=== PATIENT | female | born 1995 | race Caucasian/White ===

== ENCOUNTER 2020-07-25 16:46 | Outpatient (REF) | payer MEDICAID, SELFPAY | END 2020-07-25 16:47 | disposition home or self-care (01) | LOC: HO.LAB 16:46 | PROVIDERS: Visit Provider Internal Medicine | DX: Z20.822 Contact with and (suspected) exposure to COVID-19 (principal) | CPT/HCPCS: 36415; C9803; U0003; U0005 ==

== ENCOUNTER 2020-07-26 18:09 | Emergency (ER) | payer MEDICAID, SELFPAY | END 2020-07-26 20:50 | disposition left against medical advice (07) | PROVIDERS: Emergency Provider Internal Medicine; PCP Internal Medicine Geriatric Medicine | DX: R06.02 Shortness of breath (principal); R07.9 Chest pain, unspecified ==

== ENCOUNTER 2020-12-08 01:52 | Emergency (ER) | payer MEDICAID, SELFPAY ==
[2020-12-08 02:00] VITALS: BP 133/77; PULSE 53; RESP 16; TEMP 36.4; O2SAT 100; BMI 23.9
--- NOTE | 2020-12-08 02:32 | ED_ITS ---
HPI - Overdose General Chief Complaint: Overdose Stated Complaint: Overdose Time Seen by Provider: 12/08/20 02:32 Source: EMS and other Mode of arrival: EMS History of Present Illness HPI Narrative: 25-year-old female brought in by EMS after she states using 2 mg of Klonopin tonight and was given 4 mg of nasal Narcan by boyfriend prior to the arrival of police and EMS. As per the boyfriend who is at bedside he states that he had come over to the patient's house and knocked on the door, but there was no answer and so he climbed through the window and found her on the floor. Patient denies heroin use and only admits to the Klonopin. She denies any suicidal or homicidal ideation. Related Data Allergies Allergy/AdvReac Type Severity Reaction Status Date / Time No Known Allergies Allergy Unverified 03/08/20 18:13 [No Known Allergies*] Review of Systems Review of Systems: Pertinent positives and negatives as stated in HPI 10 point review of systems is otherwise negative. PMFSH Past Medical History Source: nursing notes reviewed Medical History No known health problems Social History Social History Advance Directives: No Advance Directives Information Provided: No Patient : No Physical Exam Vital Signs: Vital Signs: Last Vital Signs Temp 97.6 F 12/08/20 02:00 Pulse 84 12/08/20 05:18 Resp 15 12/08/20 05:18 BP 97/52 L 12/08/20 05:18 Pulse Ox 99 12/08/20 05:18 Body Mass Index 23.9 VITAL SIGNS: Reviewed. GENERAL: Well developed, well nourished, in no acute distress. HEAD: Normocephalic/atraumatic EYES: PERRLA, EOMI OROPHARYNX: no oral lesions noted, posterior pharynx clear NECK: Supple, no adenopathy LUNGS: Normal breath sounds. No adventitious sounds or accessory muscle use. SpO2<100> CARDIOVASCULAR: Regular rate and rhythm without noted murmurs ABDOMEN: Soft, non-tender, non-distended with bowel sounds. Course Course Course Narrative: 25-year-old female with history and clinical presentation consistent with substance overdose possible Klonopin or heroin. Patient will be observed until she is more awake and re-evaluated for suicidal or homicidal ideation at that time and if not present she will be discharged home in stable condition with home Narcan. On re-evaluation patient denies any suicidal or homicidal ideation. She has tolerated a p.o. challenge and will be discharged in stable condition to home. Discharge Plan Discharge Clinical Impression: Drug overdose Patient Disposition: Home, Self-Care Instructions: Adult Overdose (ED) Additional Instructions: Return for any acute worsening of symptoms. Referrals: Physician,Unknown [Primary Care Provider] - 2 days Print Language: Romanian
[2020-12-08 05:18] VITALS: BP 97/52; PULSE 84; RESP 15; O2SAT 99
[2020-12-08] MEDS: Naloxone HCl Nasal TAKE HOME 4 MG SPRAY NOSTRILALT (05:19)
== END 2020-12-08 06:35 | disposition home or self-care (01) ==
PROVIDERS: Emergency Provider Student in an Organized Health Care Education/Training Program
DX: T50.901A Poisoning by unspecified drugs, medicaments and biological substances, accidental (unintentional), initial encounter (principal); Y92.9 Unspecified place or not applicable
CPT/HCPCS: 99284

== ENCOUNTER 2021-01-15 07:27 | Inpatient (IN) | payer MEDICAID, SELFPAY ==
[2021-01-15] VITALS (8 sets, daily range): BP systolic 105–129; BP diastolic 60–86; PULSE 100–140; RESP 12–20; TEMP 35.7–38.1; O2SAT 96–100; BMI 20.7
--- NOTE | 2021-01-15 | ECG_ITS ---
Test Reason : ELEVATED TROPONIN Blood Pressure : / mmHG Vent. Rate : 098 BPM Atrial Rate : 098 BPM P-R Int : 154 ms QRS Dur : 074 ms QT Int : 366 ms P-R-T Axes : 072 061 050 degrees QTc Int : 467 ms Normal sinus rhythm Nonspecific T wave abnormality Prolonged QT Abnormal ECG No significant changes when compared with the previous EKG of 15 january 2021 Referred By: Mckinley Hinojosa Electronically Signed By:MIKE BAUTISTA
--- NOTE | ~2021-01-15 | XR_ITS ---
EXAMINATION: XR ANKLE, LEFT CLINICAL INFORMATION: Swelling and ankle pain COMPARISON: None TECHNIQUE: AP, lateral, and mortise views of the left ankle. FINDINGS: The bones and soft tissues are normal. No acute fracture. Alignment is anatomic. Joint spaces are maintained. No joint effusion. XR/XR ankle LT 2V IMPRESSION: No acute injury seen.
--- NOTE | ~2021-01-15 | XR_ITS ---
EXAMINATION: XR CHEST CLINICAL INFORMATION: Aspiration COMPARISON: January 15, 2021 TECHNIQUE: 2 views of the chest were obtained. FINDINGS: Patient has developed bibasilar disease with what appear to be small pleural effusions. No pneumothorax identified. Heart normal size. No evidence of pulmonary edema. XR/XR chest 2V IMPRESSION: Interval development of bilateral lower lobe disease with question small effusions.
--- NOTE | ~2021-01-15 | CT_ITS ---
EXAMINATION: CT HEAD WITHOUT CONTRAST CLINICAL INFORMATION: Altered mental status. Age 30. Assess for intracranial abnormality. COMPARISON: None TECHNIQUE: Contiguous axial imaging was performed from the skull base to vertex without intravenous administration of contrast. Additional 2-D coronal and sagittal reformatted images are generated on the CT workstation and uploaded to PACS. This CT examination was performed using dose optimization techniques as appropriate, variously including the following: *Automated exposure control *Adjustment of mA and/or kV according to patient size (this includes techniques or standardized protocols for targeted exams where dose is matched to indication/reason for exam; i.e. extremities or head) *Use of iterative reconstruction technique DLP: 661 mGy-cm FINDINGS: There is no intracranial hemorrhage, hematoma, or extra-axial fluid collection. The ventricles are normal in size. There is no hydrocephalus, edema, or mass effect. The benítez-white matter differentiation appears symmetric. There is no visible acute territorial infarct or mass lesion. The calvarium appears intact. There is no pneumocephalus or orbital emphysema. The visualized sinuses and middle ears and mastoid air cells show no significant mucosal thickening. There are no air-fluid levels. CT/CT head/brain wo IV con IMPRESSION: Normal study.
--- NOTE | ~2021-01-15 | XR_ITS ---
EXAMINATION: XR CHEST CLINICAL INFORMATION: Altered mental status. Rule out pneumonia. COMPARISON: None TECHNIQUE: Frontal view of the chest was obtained. FINDINGS: No significant abnormality is noted involving the heart, lungs, mediastinum, bony thorax or soft tissues. XR/XR chest 1V IMPRESSION: Unremarkable examination.
--- NOTE | 2021-01-15 08:00 | ECG_ITS ---
Test Reason : OVERDOSE Blood Pressure : / mmHG Vent. Rate : 141 BPM Atrial Rate : 141 BPM P-R Int : 130 ms QRS Dur : 076 ms QT Int : 286 ms P-R-T Axes : 078 078 068 degrees QTc Int : 438 ms Sinus tachycardia Nonspecific ST abnormality Abnormal ECG No previous ECGs available Referred By: Oli Hussein Electronically Signed By:MIKE BAUTISTA
[2021-01-15] MEDS: Naloxone HCl 2 MG/2 ML SYRINGE 4 MG IVPUSH (08:07)
[2021-01-15] MEDS: 0.9 % Sodium Chloride 1,000 ML 999 ML IV (08:08)
--- NOTE | 2021-01-15 08:13 | PC.NURSE ---
PT UNRESPONSIVE, NOT ANSWERING ANY QUESTION, MINI RESPONSE TO PAINFUL STIMULI, RED MARKINGS ON THE FRONT OF THE PT;S NECK SAME RD MARKINGS ON THE CLAVICLE AREA AND THE RIGHT SHOULDER, BRUISING ON THE RIGHT BREAST AREA AND SWELLING AND REDNESS UNDER THE RED EYE, SOME DISCOLORATION TO THE BILATERAL KNEES. RECTAL TEMP 96.3 PT SHIVERING, SINUS TACH 130-140, SATING AT 100% ON ROOM AIR, CAP 33, RESPIRATIONS SHALLOW ANYWHERE FROM 10-20, BP STABLE AT 122/80
--- NOTE | 2021-01-15 08:22 | PC.NURSE ---
MINIM AFFECT THE 4MG OF NARCAN PT SHIVERING AND MOVING AROUND AND FEW VINICIO/YAWNS BUT STILL NOT ANSWERING ANY QUESTIONS OR OPENING HER EYES, VS CONTINUOS ON BEING STABLE AT THIS TIME
[2021-01-15 08:38] LABS: Basophils Absolute Auto 0.1 X10*3/uL (0.0-0.2); Basophils Percent Auto 0.2 % (0-2); Hematocrit 41.6 % (37-47); Hemoglobin 13.4 g/dl (12.0-16.0); Imm Gran Abs Auto 0.24 X10*3/uL (0.00-0.03); Imm Gran Pct Auto 0.8 % (0.0-0.4); Lymphocytes Absolute Auto 1.1 X10*3/uL (1.2-4.9); Lymphocytes Percent Auto 3.6 % (20-40); MANUAL DIFF FLAG SCAN; Mean Corpuscular HGB Conc 32.2 g/dl (31.0-35.0); Mean Corpuscular Hemoglobin 29.9 pg (27.0-33.0); Mean Corpuscular Volume 92.9 fL (80-98); Mean Platelet Volume 10.2 fL (9.4-12.3); Monocytes Absolute Auto 2.5 X10*3/uL (0.1-1.2); Monocytes Percent Auto 8.2 % (2-11); Neutrophils Absolute Auto 26.1 X10*3/uL (2.0-8.3); Neutrophils Percent Auto 87.2 % (45-73); Platelet Count 247 X10*3/uL (160-400); Red Blood Count 4.48 X10*6/uL (4.20-5.50); Red Cell Distribution Width 13.5 % (11.0-16.0); SCAN SMEAR FLAG 1
--- NOTE | 2021-01-15 08:40 | PC.NURSE ---
security at bedside for belongings
[2021-01-15 08:58] LABS: Lactic Acid 7.3 mmol/L (0.5-2.0)
[2021-01-15 08:59] LABS: COVID-19 Test Negative (Negative)
--- NOTE | 2021-01-15 09:05 | ED_ITS ---
HPI - General Adult General Chief complaint: Overdose Stated complaint: UNRESPONSIVE,?OD,3MG NARCAN W/NO EFFECT Time Seen by Provider: 01/15/21 07:49 Source: EMS Mode of arrival: EMS Limitations: altered mental status History of Present Illness HPI narrative: 30-year-old female who presents emergency department for evaluation of altered mental status, the patient is not able to give a history, information comes from the ED nurse who took report from the paramedics. The patient was found unresponsive at home on the floor. She was half dressed. The family administered 2 mg of intranasal Narcan with no effect. Paramedics gave Narcan 1 mg IV with no effect. The ED nurse found bags of heroin in the patient's pockets with a straw suggested the patient uses intranasal heroin. Nursing staff did not notice any IV track gaming on the patient's body. In the emergency department, the patient is altered, minimally withdrawing from painful stimuli with minimal spontaneous movement. She was given Narcan 4 g IV with some improved response, she had increased spontaneous movement but still has an altered mental status. Related Data Allergies Allergy/AdvReac Type Severity Reaction Status Date / Time No Known Allergies Allergy Verified 01/15/21 07:59 Review of Systems Review of Systems: Yes Unobtainable due to mental status [facility] Past Medical History [facility] Narrative: Past medical history: Unobtainable. Past surgical history: Unobtainable. Social history: Unobtainable Social History Social History Patient Tobacco Use Status: Current everyday Tobacco user Use of substances other than those prescribed or required for medical reasons: Yes Substance Use Type: Heroin Physical Exam Vital Signs: Vital Signs: Last Vital Signs Temp 100.6 F H 01/15/21 11:51 Pulse 115 H 01/15/21 11:51 Resp 18 01/15/21 11:51 BP 129/80 01/15/21 11:51 Pulse Ox 98 01/15/21 11:51 Body Mass Index 20.7 Const: Other: Very thin female patient, altered mental status, minimally responding to painful stimuli, minimal spontaneous movement HENMT: Head: Yes normal to inspection, Yes normocephalic and Yes atraumatic Ears: external ears normal General nose exam: Normal external nose present Face and sinus: Yes normal facial exam Mouth: Normal oral and palatal mucosa present Throat: Yes posterior oropharynx normal Eyes: Periorbital: periorbital findings normal Eyelids: Yes eyelids normal Conjunctivae: conjunctivae normal Sclerae: sclerae normal Corneas: corneas normal Pupils: Pupil size comments on the right 4 and on the left 4 Direct Ophthalmoscopy: normal light reflex Neck: Neck: Yes no lymphadenopathy, Yes trachea midline and Yes supple Chest: Chest palpation & inspection: normal inspection of the chest and normal palpation of entire chest wall Resp: Effort & Inspection: normal respiratory effort Auscultation: clear to auscultation bilaterally Cardio: Rate: tachycardic Rhythm: regular rhythm Heart sounds: S1 normal heart sound present, S2 normal heart sound present and no murmurs GI: Inspection: Yes normal to inspection Palpation (GI): Soft to palpation, nontender, no guarding, not rigid and No hepatosplenomegaly present Skin: Lesions: no lesions Rashes: no rashes Wounds: no wounds Neuro: Other: Altered mental status, not responding to verbal stimuli, minimally responsive to painful stimuli, does have spontaneous movement her age increased after receiving IV Narcan but this did not change in mental status Extrem: General: Yes normal to inspection Course Course Course Narrative: 30-year-old female who presents emergency department for evaluation of altered mental status, she was found on the floor and her family administered intranasal Narcan with no effect. She had 1 mg of IV Narcan with no effect. Here in the emergency department she was given 4 mg of IV Narcan with increased spontaneous movement and yawning but no change in her mental status. I ordered a laboratory evaluation on this patient to include CBC, CMP, lactic acid, blood cultures, CK, urinalysis. Chest x-ray, CT scan of the brain and EKG will also be obtained. She was ordered to get a 30 milliliters/kilogram IV bolus. 0928: Patient's laboratory evaluation [place] [address], patient has a low bicarb of 18 with an elevated creatinine of 1.51. Lactic acid was markedly elevated at 7.3. High sensitivity troponin was elevated at 309.1. I did re-evaluate the patient, with a sternal rub she was able to tell me her name and she did request betty aj. I am still waiting for the CT scan of the patient's head. At this time, I suspect the patient had a significant opiate overdose causing her to have an aspiration pneumonia causing hypoxia possibly hypotension leading to type 2 myocardial infarction. Patient will be treated for possible aspiration pneumonia and MRSA with ceftriaxone 1 g IV and vancomycin 1 g IV. I will give the patient another high dose bolus of Narcan 4 mg IV and if this has an effect, she will be started on Narcan drip. 1124: I did discuss the patient's presentation with the covering hemodialysis lab technician, Dr. Rees who felt that the patient's elevated troponin was most likely secondary to the patient's hypoxia and that the patient can be managed at this facility. The patient's repeat 3 hour high sensitivity troponin is pending. Patient's repeat lactic acid improved significantly and is 1.9. I will discuss the patient's presentation with the covering hospitalist. 1137: I did discuss patient's presentation with the covering hospitalist, Dr. Wick and the patient will be admitted to the [facility] for further treatment. The patient's repeat high sensitive troponin did increase to 693.9. Medical Decision Making Lab Data Result diagrams: 01/15/21 08:31 01/15/21 08:31 Labs: Lab Results 01/15/21 01/15/21 01/15/21 Range/Units 08:31 08:31 08:31 WBC 30.0 H* (4.8-10.8) X10*3/uL RBC 4.48 (4.20-5.50) X10*6/uL Hgb 13.4 (12.0-16.0) g/dl Hct 41.6 (37-47) % MCV 92.9 (80-98) fL MCH 29.9 (27.0-33.0) pg MCHC 32.2 (31.0-35.0) g/dl RDW 13.5 (11.0-16.0) % Plt Count 247 (160-400) X10*3/uL MPV 10.2 (9.4-12.3) fL Immature Gran % (Auto) 0.8 H (0.0-0.4) % Neut % (Auto) 87.2 H (45-73) % Lymph % (Auto) 3.6 L (20-40) % [place] % (Auto) 8.2 (2-11) % Eos % (Auto) 0.0 (0-4) % Baso % (Auto) 0.2 (0-2) % Lymph # (Auto) 1.1 L (1.2-4.9) X10*3/uL [place] # (Auto) 2.5 H (0.1-1.2) X10*3/uL Eos # (Auto) 0.0 (0.0-0.4) X10*3/uL Baso # (Auto) 0.1 (0.0-0.2) X10*3/uL Abs Immat Gran (auto) 0.24 H (0.00-0.03) X10*3/uL Absolute Neuts (auto) 26.1 H (2.0-8.3) X10*3/uL Absolute Nucleated RBC 0.000 (0.0-0.012) X10*3/uL Nucleated RBC % (auto) 0.0 (0.0-0.2) /100WBC Smear Tech's Comments VERIFIED Sodium 144 (135-145) mmol/L Potassium 3.4 (3.3-5.1) mmol/L Chloride 111 H (96-108) mmol/L Carbon Dioxide 18 L (22-29) mmol/L Anion Gap 18 (12-20) BUN 9 (9-16) mg/dL Creatinine 1.51 H (0.5-1.4) mg/dL Estim Creat Clear Calc 42.7 Estimated GFR 40 Random Glucose 89 (60-115) mg/dL Lactic Acid (0.5-2.0) mmol/L Lactic Acid Fup @ 2Hr (0.5-2.0) mmol/L Calcium 8.4 (8.4-10.2) mg/dL Total Bilirubin 0.5 (0.0-1.0) mg/dL AST 32 H (5-31) U/L ALT 13 (0-31) U/L Alkaline Phosphatase 60 (39-117) U/L Total Creatine Kinase 255 H (26-140) U/L Troponin I High Sens (<3.5-17.0) ng/L B-Natriuretic Peptide (<100) pg/mL Total Protein 7.1 (6.5-8.0) g/dL Albumin 4.4 (3.5-5.0) g/dL Lipase 22 (8-78) U/L TSH 0.68 (0.32-4.0) uIU/mL Beta HCG, Quant < 2 mIU/mL Salicylates < 5.0 L (15-30) mg/dL Acetaminophen < 1 (<30) mcg/mL Ethyl Alcohol mg/dL COVID-19 ([facility]) Negative (Negative) COVID-19 Clin Com See Note 01/15/21 01/15/21 01/15/21 Range/Units 08:31 08:31 08:31 WBC (4.8-10.8) X10*3/uL RBC (4.20-5.50) X10*6/uL Hgb (12.0-16.0) g/dl Hct (37-47) % MCV (80-98) fL MCH (27.0-33.0) pg MCHC (31.0-35.0) g/dl RDW (11.0-16.0) % Plt Count (160-400) X10*3/uL MPV (9.4-12.3) fL Immature Gran % (Auto) (0.0-0.4) % Neut % (Auto) (45-73) % Lymph % (Auto) (20-40) % [place] % (Auto) (2-11) % Eos % (Auto) (0-4) % Baso % (Auto) (0-2) % Lymph # (Auto) (1.2-4.9) X10*3/uL [place] # (Auto) (0.1-1.2) X10*3/uL Eos # (Auto) (0.0-0.4) X10*3/uL Baso # (Auto) (0.0-0.2) X10*3/uL Abs Immat Gran (auto) (0.00-0.03) X10*3/uL Absolute Neuts (auto) (2.0-8.3) X10*3/uL Absolute Nucleated RBC (0.0-0.012) X10*3/uL Nucleated RBC % (auto) (0.0-0.2) /100WBC Smear Tech's Comments Sodium (135-145) mmol/L Potassium (3.3-5.1) mmol/L Chloride (96-108) mmol/L Carbon Dioxide (22-29) mmol/L Anion Gap (12-20) BUN (9-16) mg/dL Creatinine (0.5-1.4) mg/dL Estim Creat Clear Calc Estimated GFR Random Glucose (60-115) mg/dL Lactic Acid 7.3 H* (0.5-2.0) mmol/L Lactic Acid Fup @ 2Hr (0.5-2.0) mmol/L Calcium (8.4-10.2) mg/dL Total Bilirubin (0.0-1.0) mg/dL AST (5-31) U/L ALT (0-31) U/L Alkaline Phosphatase (39-117) U/L Total Creatine Kinase (26-140) U/L Troponin I High Sens 309.1 H* (<3.5-17.0) ng/L B-Natriuretic Peptide 24 (<100) pg/mL Total Protein (6.5-8.0) g/dL Albumin (3.5-5.0) g/dL Lipase (8-78) U/L TSH (0.32-4.0) uIU/mL Beta HCG, Quant mIU/mL Salicylates (15-30) mg/dL Acetaminophen (<30) mcg/mL Ethyl Alcohol < 10 mg/dL COVID-19 ([facility]) (Negative) COVID-19 Clin Com 01/15/21 01/15/21 Range/Units 10:43 10:43 WBC (4.8-10.8) X10*3/uL RBC (4.20-5.50) X10*6/uL Hgb (12.0-16.0) g/dl Hct (37-47) % MCV (80-98) fL MCH (27.0-33.0) pg MCHC (31.0-35.0) g/dl RDW (11.0-16.0) % Plt Count (160-400) X10*3/uL MPV (9.4-12.3) fL Immature Gran % (Auto) (0.0-0.4) % Neut % (Auto) (45-73) % Lymph % (Auto) (20-40) % [place] % (Auto) (2-11) % Eos % (Auto) (0-4) % Baso % (Auto) (0-2) % Lymph # (Auto) (1.2-4.9) X10*3/uL [place] # (Auto) (0.1-1.2) X10*3/uL Eos # (Auto) (0.0-0.4) X10*3/uL Baso # (Auto) (0.0-0.2) X10*3/uL Abs Immat Gran (auto) (0.00-0.03) X10*3/uL Absolute Neuts (auto) (2.0-8.3) X10*3/uL Absolute Nucleated RBC (0.0-0.012) X10*3/uL Nucleated RBC % (auto) (0.0-0.2) /100WBC Smear Tech's Comments Sodium (135-145) mmol/L Potassium (3.3-5.1) mmol/L Chloride (96-108) mmol/L Carbon Dioxide (22-29) mmol/L Anion Gap (12-20) BUN (9-16) mg/dL Creatinine (0.5-1.4) mg/dL Estim Creat Clear Calc Estimated GFR Random Glucose (60-115) mg/dL Lactic Acid (0.5-2.0) mmol/L Lactic Acid Fup @ 2Hr 1.9 (0.5-2.0) mmol/L Calcium (8.4-10.2) mg/dL Total Bilirubin (0.0-1.0) mg/dL AST (5-31) U/L ALT (0-31) U/L Alkaline Phosphatase (39-117) U/L Total Creatine Kinase (26-140) U/L Troponin I High Sens 693.9 H* D (<3.5-17.0) ng/L B-Natriuretic Peptide (<100) pg/mL Total Protein (6.5-8.0) g/dL Albumin (3.5-5.0) g/dL Lipase (8-78) U/L TSH (0.32-4.0) uIU/mL Beta HCG, Quant mIU/mL Salicylates (15-30) mg/dL Acetaminophen (<30) mcg/mL Ethyl Alcohol mg/dL COVID-19 ([facility]) (Negative) COVID-19 Clin Com ECG Data Interpretation: 0817: Sinus tachycardia with a rate of 141, normal UT interval, QRS duration and QTC interval, n ST segment elevation in V2 only, no ST segment depression, nonspecific T-wave abnormalities, no old EKG for comparison. 1148: Sinus tachycardia with rate of 118, normal UT, QRS duration, prolonged QTC of 484 milliseconds. No PACs or PACs, ST segment elevation in V2 only, no significant ST segment depression. No significant change compared to the 1st EKG. Critical Care Time Critical Care Time Critical Care Time: Yes Total Critical Care Time: 45 Attestation: Critical Care: The patient was critically ill with a high probability of imminent or life threatening deterioration. I spent greater than 30 minutes of discontinuous time evaluating the patient,delivering critical care at the bedside, discussing and evaluating pertinent data with consultants. Critical care time does not include time spent performing separately billable procedures or teaching. Total time spent performing critical care was 45 minutes. Discharge Plan Discharge Clinical Impression: Opiate overdose Qualifiers: Encounter type: initial encounter Injury intent: accidental or unintentional Qualified Code(s): T40.601A - Poisoning by unspecified narcotics, accidental (unintentional), initial encounter Aspiration pneumonia Qualifiers: Aspiration pneumonia type: unspecified Laterality: right Lung location: lower lobe of lung Qualified Code(s): J69.0 - Pneumonitis due to inhalation of food and vomit Myocardial infarction Qualifiers: Myocardial infarction type: type 2 Qualified Code(s): I21.A1 - Myocardial inf arction type 2 Patient Disposition: Admitted As Inpatient
[2021-01-15 09:09] LABS: SLIDE REVIEW VERIFIED
[2021-01-15] MEDS: cefTRIAXone sodium 1 GM in 0.9 % Sodium Chloride 50 ML IV (09:10)
[2021-01-15 09:11] LABS: Ethanol < 10 mg/dL
[2021-01-15 09:13] LABS: B Type Natriuretic Peptide 24 pg/mL (<100)
[2021-01-15 09:14] LABS: Troponin-I High Sensitivity 309.1 ng/L (<3.5-17.0)
--- NOTE | 2021-01-15 09:17 | PC.NURSE ---
pt continuos on being unresponsive to voice/very mini, will only slightly open one eye to painful stimuli, sinus tach on the monitor at 128, sating 97% on room air cap 41, bp 118/86, resp 18
[2021-01-15 09:21] LABS: Acetaminophen LAB < 1 mcg/mL (<30); Alanine Aminotransferase 13 U/L (0-31); Albumin Level 4.4 g/dL (3.5-5.0); Alkaline Phosphatase 60 U/L (39-117); Anion Gap 18 (12-20); Aspartate Amino Transferase 32 U/L (5-31); Bilirubin Total 0.5 mg/dL (0.0-1.0); Blood Urea Nitrogen 9 mg/dL (9-16); Calcium 8.4 mg/dL (8.4-10.2); Carbon Dioxide 18 mmol/L (22-29); Chloride 111 mmol/L (96-108); Creatinine Clr Calc Pharmacy 42.7; Estimated Glomerular Filt Rate 40; Glucose Random 89 mg/dL (60-115); Lipase 22 U/L (8-78); Potassium 3.4 mmol/L (3.3-5.1); Sodium 144 mmol/L (135-145); Total Protein 7.1 g/dL (6.5-8.0)
[2021-01-15 09:31] LABS: Salicylate < 5.0 mg/dL (15-30)
[2021-01-15 09:35] LABS: HCG Quantitative < 2 mIU/mL; TSH reflex Free T4 0.68 uIU/mL (0.32-4.0)
--- NOTE | 2021-01-15 10:15 | PC.NURSE ---
pt awake having a full conversation with this rn, pt admits to using heroin last night, snorted it, denies drinking or any other drugs. pt is reporting some abd pain, is currently on her period as well states but states that is different pain. this rn asked if the pt is safe at home and if anybody is hurting her due to all the markings/bruising on her body -pt states that she is safe and that nobody is hurting her. pt will fall right back to sleep after the conversing. vs stable
[2021-01-15] MEDS: vancomycin HCL 1,000 MG in 0.9 % Sodium Chloride 250 ML 270 MG IV (10:19)
[2021-01-15 10:35] LABS: Reflex Lactate? Lactic Acid Added
[2021-01-15 11:16] LABS: ~Lactic Acid-LAB USE ONLY 1.9 mmol/L (0.5-2.0)
[2021-01-15 11:28] LABS: Troponin-I High Sensitivity 693.9 ng/L (<3.5-17.0)
--- NOTE | 2021-01-15 11:39 | ECG_ITS ---
Test Reason : REPEAT Blood Pressure : / mmHG Vent. Rate : 118 BPM Atrial Rate : 118 BPM P-R Int : 144 ms QRS Dur : 072 ms QT Int : 346 ms P-R-T Axes : 079 088 059 degrees QTc Int : 484 ms Sinus tachycardia Slight ST elevation in V1, V2, possibly non-specific Abnormal ECG When compared with ECG of 15-JAN-2021 08:17, Rate slower Referred By: Oli Hussein Electronically Signed By:MIKE BAUTISTA
[2021-01-15 12:58] LABS: INTERNATIONAL NORM RATIO 1.4 (0.9-1.1); Prothrombin Time 15.7 SEC (9.9-13.0)
[2021-01-15 13:01] LABS: Partial Thromboplastin Time 33.8 SEC (24.1-38.0)
--- NOTE | 2021-01-15 13:38 | P.HPHOSP_ITS ---
History of Present Illness Date of Service: 01/15/21 Chief Complaint: Heroin overdose and unresponsiveness 25 year female with opioid dependence found at home unresponsive by family and given intranasal narcan with no effect, subsequently given additional narcan by EMS and even more in the ED and final regaining consciousnes with spontaneous movement yet confused. Labs work work has reaveled WBC of 30K, lactic acid of 7, troponin I 600, there are no ECG changes. Has low grade fever, chest xray is negative for acute infiltrate, head CT is normal. When I saw the patient she was somnolent yet easily aroused and oriented to self, place and time and wanted food and gingerale and when asked why she she is here, simply says drugs . Denies suicide ideation Review of Systems Review of Systems: Gen: + fever Resp: no sob, no cough CV: no chest, no MAX, no leg edema GI: No n/v, no abd pain Neuro: No confusion Yes all other systems are reviewed and are negative PMFSH Family history: reviewed and not pertinent Social History Patient Tobacco Use Status: Current everyday Tobacco user Use of substances other than those prescribed or required for medical reasons: Yes Substance Use Type: Heroin Advance Directives: No Advance Directives Information Provided: Yes Meds Allergies Allergy/AdvReac Type Severity Reaction Status Date / Time No Known Allergies Allergy Verified 01/15/21 07:59 Active Medications: Current Medications Generic Name Dose Route Start Last Admin Trade Name Freq PRN Reason Stop Dose Admin Acetaminophen 650 mg 01/15/21 13:27 Acetaminophen 325 Mg Tablet PO Q6H PRN Pain, Mild (Pain Scale 1-3) Dextrose/Sodium Chloride 1,000 mls @ 100 mls/hr 01/15/21 13:30 D5ns IVCONT .Q10H IRISH Melatonin 3 mg 01/15/21 13:27 Melatonin 3 Mg Tablet PO BEDTIME PRN Insomnia Sodium Chloride 3 ml 01/15/21 16:00 0.9 % Sodium Chloride Flush 3 Ml Syringe IVFLUSH QSHIFT [facility] Home Medications Medication Instructions Recorded Confirmed Last Taken Type zolpidem 1 tab PO BEDTIME 01/15/21 01/15/21 Unknown History Physical Exam Vital Signs and Narrative: Vital Signs: Last Vital Signs Temp 100.6 F H 01/15/21 11:51 Pulse 115 H 01/15/21 11:51 Resp 18 01/15/21 11:51 BP 129/80 01/15/21 11:51 Pulse Ox 98 01/15/21 11:51 Body Mass Index 20.7 Results Labs CBC and Chem 7: 01/15/21 08:31 01/15/21 08:31 Labs: Laboratory Results - last 24 hr 01/15/21 01/15/21 01/15/21 08:31 08:31 08:31 MCV 92.9 MCH 29.9 MCHC 32.2 RDW 13.5 Plt Count 247 MPV 10.2 Immature Gran % (Auto) 0.8 H Neut % (Auto) 87.2 H Lymph % (Auto) 3.6 L [place] % (Auto) 8.2 Eos % (Auto) 0.0 Baso % (Auto) 0.2 Lymph # (Auto) 1.1 L [place] # (Auto) 2.5 H Eos # (Auto) 0.0 Baso # (Auto) 0.1 Abs Immat Gran (auto) 0.24 H Absolute Neuts (auto) 26.1 H Absolute Nucleated RBC 0.000 Nucleated RBC % (auto) 0.0 Smear Tech's Comments VERIFIED PT INR APTT Anion Gap 18 Estim Creat Clear Calc 42.7 Estimated GFR 40 Random Glucose 89 Lactic Acid Lactic Acid Fup @ 2Hr Calcium 8.4 Total Bilirubin 0.5 AST 32 H ALT 13 Alkaline Phosphatase 60 Total Creatine Kinase 255 H Troponin I High Sens B-Natriuretic Peptide Total Protein 7.1 Albumin 4.4 Lipase 22 TSH 0.68 Beta HCG, Quant < 2 Salicylates < 5.0 L Acetaminophen < 1 Ethyl Alcohol COVID-19 (ADALI) Negative COVID-19 Clin Com See Note 01/15/21 01/15/21 01/15/21 08:31 08:31 08:31 MCV MCH MCHC RDW Plt Count MPV Immature Gran % (Auto) Neut % (Auto) Lymph % (Auto) [place] % (Auto) Eos % (Auto) Baso % (Auto) Lymph # (Auto) [place] # (Auto) Eos # (Auto) Baso # (Auto) Abs Immat Gran (auto) Absolute Neuts (auto) Absolute Nucleated RBC Nucleated RBC % (auto) Smear Tech's Comments PT INR APTT Anion Gap Estim Creat Clear Calc Estimated GFR Random Glucose Lactic Acid 7.3 H* Lactic Acid Fup @ 2Hr Calcium Total Bilirubin AST ALT Alkaline Phosphatase Total Creatine Kinase Troponin I High Sens 309.1 H* B-Natriuretic Peptide 24 Total Protein Albumin Lipase TSH Beta HCG, Quant Salicylates Acetaminophen Ethyl Alcohol < 10 COVID-19 (ADALI) COVID-19 [employer] Com 01/15/21 01/15/21 01/15/21 10:43 10:43 12:40 MCV MCH MCHC RDW Plt Count MPV Immature Gran % (Auto) Neut % (Auto) Lymph % (Auto) [place] % (Auto) Eos % (Auto) Baso % (Auto) Lymph # (Auto) [place] # (Auto) Eos # (Auto) Baso # (Auto) Abs Immat Gran (auto) Absolute Neuts (auto) Absolute Nucleated RBC Nucleated RBC % (auto) Smear Tech's Comments PT 15.7 H INR 1.4 H APTT 33.8 Anion Gap Estim Creat Clear Calc Estimated GFR Random Glucose Lactic Acid Lactic Acid Fup @ 2Hr 1.9 Calcium Total Bilirubin AST ALT Alkaline Phosphatase Total Creatine Kinase Troponin I High Sens 693.9 H* D B-Natriuretic Peptide Total Protein Albumin Lipase TSH Beta HCG, Quant Salicylates Acetaminophen Ethyl Alcohol COVID-19 (ADALI) COVID-19 Clin Com Imaging Radiologist's Impressions: Impressions Chest X-Ray 01/15/21 08:00 IMPRESSION: Unremarkable examination. Head CT 01/15/21 08:00 IMPRESSION: Normal study. Assessment and Plan (1) Opiate overdose: Qualifiers: Encounter type: initial encounter Injury intent: accidental or unintentional Qualified Code(s): T40.601A - Poisoning by unspecified narcotics, accidental (unintentional), initial encounter Status: Acute (2) Elevated troponin: Status: Acute (3) BIB (acute kidney injury): Status: Acute (4) Lactic acidosis: Status: Acute Opioid overdose BIB Lactic acidosis Reactive Leukocytosis Elevated troponin-likely type 1 NH from hypoxia from opioid OD [place] Plan: She tells me the OD was unintentional, I will ask addition medicine to see her-meanwhile, clodine, ativan PRN for withdrawal symptoms BIB is expected to resolved with fluid Leukocytosis is likey reactive there is no PNA on CXR, she has received Abx in ED for possible aspiration, but will hold off aditional Abx for now--She does not have Sepsis Lactic acidosis is not due to sepsis and should correct with IVF alone Cogulatopaty with slighty high INR monitor Elevated troponin from type 1 NH from proably hypooxia and possible hypotension from over--I will check with cardiology to see if anything, if at all, needs to be done. Repeat troponin. ambulate for DVT prophylaxis Quality Stroke Does the patient have a stroke diagnosis?: No VTE Prior VTE?: No VTE Risk Level:: Medical - low VTE Device Contraindication: N/A - Device Ordered VTE Drug Contraindication: N/A - Med Ordered
[2021-01-15 13:51] LABS: Hematocrit 40.8 % (37-47); Hemoglobin 13.2 g/dl (12.0-16.0); Mean Corpuscular HGB Conc 32.4 g/dl (31.0-35.0); Mean Corpuscular Hemoglobin 30.1 pg (27.0-33.0); Mean Corpuscular Volume 93.2 fL (80-98); Mean Platelet Volume 10.1 fL (9.4-12.3); Platelet Count 232 X10*3/uL (160-400); Red Blood Count 4.38 X10*6/uL (4.20-5.50); Red Cell Distribution Width 13.5 % (11.0-16.0); White Blood Count 25.6 X10*3/uL (4.8-10.8)
--- NOTE | 2021-01-15 13:54 | PHA.MEDREC ---
Pharmacy Consult ? Medication Reconciliation Pharmacy has completed the medication reconciliation. Pt unresponsive, based med rec on claim history, pt may be still on suboxone and truvada last fills 12/03/20, 11/06/20
[2021-01-15 14:21] LABS: Lactic Acid 2.6 mmol/L (0.5-2.0)
[2021-01-15] MEDS: Dextrose 5 % and 0.9 % NaCl 1,000 ML 100 ML IVCONT (14:24)
--- NOTE | 2021-01-15 14:47 | PC.NURSE ---
sister Zormarie [phone]
--- NOTE | 2021-01-15 15:14 | PC.NURSE ---
pt is currently sleeping, vs stable in no apparent distress at this time
[2021-01-15 15:47] LABS: Reflex Lactate? Lactic Acid Added
[2021-01-15 16:39] LABS: ~Lactic Acid-LAB USE ONLY 2.8 mmol/L (0.5-2.0)
--- NOTE | 2021-01-15 16:51 | HO.ADDICT_ITS ---
History of Present Illness Date of Service: 01/15/2021 Chief Complaint: SIRS Heroin Overdose Reason for Consult: OUD Requesting physician: Mckinley Hinojosa Discussed with referring provider: No Sources of Information: patient interviewed and chart reviewed Additional Sources of Information: Collateral from patient's mother, Rhonda HPI Narrative: Patient is a 25 year old female who is currently medically admitted following suspected opioid overdose. Patient initially reporting that she did not recall what occurred, then reported to RS RN that she used heroin last evening following long period in recovery. Patient denies taking any other substances. Patient still not entirely alert, so limited information obtained at this time. Mother reports(from what she knows) that patient has been in recovery for about 4 months and feels she started to use again within the last couple of weeks. She states she found her this morning bent over a table and was not responsive. Mother reports patient has been committed to tx via [address]. Unclear when this was. Pharmacy review shows patient has been prescribed Suboxone for the last year and most recent dose is 12mg QD (filled 12/03) Several other medications listed including Truvada (?PREP), Ambien, and Paxil (all last filled in October) patient reported to RN that she is only taking Ambien at this time. 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 Review of Systems Review of Systems Yes Unobtainable due to mental status Diagnostics Vital Signs (24Hr): Vital Signs - 24 hr 01/15/21 07:48 01/15/21 08:20 01/15/21 09:20 Temperature 96.3 F L 96.3 F L Pulse Rate 140 H 137 H 126 H Respiratory Rate 12 15 18 Blood Pressure 125/69 122/80 118/86 Pulse Oximetry 100 100 96 01/15/21 10:21 01/15/21 11:51 01/15/21 15:11 Temperature 100.6 F H Pulse Rate 120 H 115 H 100 Respiratory Rate 20 18 18 Blood Pressure 127/86 129/80 112/73 Pulse Oximetry 98 98 98 Body Mass Index 20.7 Labs Results: 01/15/21 13:42 01/15/21 08:31 Labs: Laboratory Results - last 48 hr 01/15/21 01/15/21 01/15/21 08:31 08:31 08:31 WBC 30.0 H* RBC 4.48 Hgb 13.4 Hct 41.6 MCV 92.9 MCH 29.9 MCHC 32.2 RDW 13.5 Plt Count 247 MPV 10.2 Immature Gran % (Auto) 0.8 H Neut % (Auto) 87.2 H Lymph % (Auto) 3.6 L [place] % (Auto) 8.2 Eos % (Auto) 0.0 Baso % (Auto) 0.2 Lymph # (Auto) 1.1 L [place] # (Auto) 2.5 H Eos # (Auto) 0.0 Baso # (Auto) 0.1 Abs Immat Gran (auto) 0.24 H Absolute Neuts (auto) 26.1 H Absolute Nucleated RBC 0.000 Nucleated RBC % (auto) 0.0 Smear Tech's Comments VERIFIED PT INR APTT Sodium 144 Potassium 3.4 Chloride 111 H Carbon Dioxide 18 L Anion Gap 18 BUN 9 Creatinine 1.51 H Estim Creat Clear Calc 42.7 Estimated GFR 40 Random Glucose 89 Lactic Acid Lactic Acid Fup @ 2Hr Calcium 8.4 Total Bilirubin 0.5 AST 32 H ALT 13 Alkaline Phosphatase 60 Total Creatine Kinase 255 H Troponin I High Sens B-Natriuretic Peptide Total Protein 7.1 Albumin 4.4 Lipase 22 TSH 0.68 Beta HCG, Quant < 2 Salicylates < 5.0 L Acetaminophen < 1 Ethyl Alcohol COVID-19 (ADALI) Negative COVID-19 Clin Com See Note 01/15/21 01/15/21 01/15/21 08:31 08:31 08:31 WBC RBC Hgb Hct MCV MCH MCHC RDW Plt Count MPV Immature Gran % (Auto) Neut % (Auto) Lymph % (Auto) [place] % (Auto) Eos % (Auto) Baso % (Auto) Lymph # (Auto) [place] # (Auto) Eos # (Auto) Baso # (Auto) Abs Immat Gran (auto) Absolute Neuts (auto) Absolute Nucleated RBC Nucleated RBC % (auto) Smear Tech's Comments PT INR APTT Sodium Potassium Chloride Carbon Dioxide Anion Gap BUN Creatinine Estim Creat Clear Calc Estimated GFR Random Glucose Lactic Acid 7.3 H* Lactic Acid Fup @ 2Hr Calcium Total Bilirubin AST ALT Alkaline Phosphatase Total Creatine Kinase Troponin I High Sens 309.1 H* B-Natriuretic Peptide 24 Total Protein Albumin Lipase TSH Beta HCG, Quant Salicylates Acetaminophen Ethyl Alcohol < 10 COVID-19 (ADALI) COVID-19 [employer] 01/15/21 01/15/21 01/15/21 10:43 10:43 12:40 WBC RBC Hgb Hct MCV MCH MCHC RDW Plt Count MPV Immature Gran % (Auto) Neut % (Auto) Lymph % (Auto) [place] % (Auto) Eos % (Auto) Baso % (Auto) Lymph # (Auto) [place] # (Auto) Eos # (Auto) Baso # (Auto) Abs Immat Gran (auto) Absolute Neuts (auto) Absolute Nucleated RBC Nucleated RBC % (auto) Smear Tech's Comments PT 15.7 H INR 1.4 H APTT 33.8 Sodium Potassium Chloride Carbon Dioxide Anion Gap BUN Creatinine Estim Creat Clear Calc Estimated GFR Random Glucose Lactic Acid Lactic Acid Fup @ 2Hr 1.9 Calcium Total Bilirubin AST ALT Alkaline Phosphatase Total Creatine Kinase Troponin I High Sens 693.9 H* D B-Natriuretic Peptide Total Protein Albumin Lipase TSH Beta HCG, Quant Salicylates Acetaminophen Ethyl Alcohol COVID-19 (ADALI) [employer]et 01/15/21 01/15/21 01/15/21 13:42 13:42 13:42 WBC 25.6 H RBC 4.38 Hgb 13.2 Hct 40.8 MCV 93.2 MCH 30.1 MCHC 32.4 RDW 13.5 Plt Count 232 MPV 10.1 Immature Gran % (Auto) Neut % (Auto) Lymph % (Auto) [place] % (Auto) Eos % (Auto) Baso % (Auto) Lymph # (Auto) [place] # (Auto) Eos # (Auto) Baso # (Auto) Abs Immat Gran (auto) Absolute Neuts (auto) Absolute Nucleated RBC 0.000 Nucleated RBC % (auto) 0.0 Smear Tech's Comments PT INR APTT Sodium Potassium Chloride Carbon Dioxide Anion Gap BUN Creatinine Estim Creat Clear Calc Estimated GFR Random Glucose Lactic Acid Lactic Acid Fup @ 2Hr Calcium Total Bilirubin AST ALT Alkaline Phosphatase Total Creatine Kinase 1021 H D Troponin I High Sens 1168.1 H* D B-Natriuretic Peptide Total Protein Albumin Lipase TSH Beta HCG, Quant Salicylates Acetaminophen Ethyl Alcohol COVID-19 (ADALI) COVID-19 [employer] 01/15/21 01/15/21 13:42 15:55 WBC RBC Hgb Hct MCV MCH MCHC RDW Plt Count MPV Immature Gran % (Auto) Neut % (Auto) Lymph % (Auto) [place] % (Auto) Eos % (Auto) Baso % (Auto) Lymph # (Auto) [place] # (Auto) Eos # (Auto) Baso # (Auto) Abs Immat Gran (auto) Absolute Neuts (auto) Absolute Nucleated RBC Nucleated RBC % (auto) Smear Tech's Comments PT INR APTT Sodium Potassium Chloride Carbon Dioxide Anion Gap BUN Creatinine Estim Creat Clear Calc Estimated GFR Random Glucose Lactic Acid 2.6 H* Lactic Acid Fup @ 2Hr 2.8 H* Calcium Total Bilirubin AST ALT Alkaline Phosphatase Total Creatine Kinase Troponin I High Sens B-Natriuretic Peptide Total Protein Albumin Lipase TSH Beta HCG, Quant Salicylates Acetaminophen Ethyl Alcohol COVID-19 (ADALI) COVID-19 Clin Com Imaging Radiology Impressions: ITS Impressions Chest X-Ray 01/15/21 08:00 IMPRESSION: Unremarkable examination. Head CT 01/15/21 08:00 IMPRESSION: Normal study. Mental Status Exam Mental Status Exam Patient Orientation: Person Level of Consciousness: Awake, Drowsy and Lethargic Patient Behavior: Guarded Mood Description: Blunted Affect Description: Blunted Ability to Follow Directions: Good Speech Pattern: Soft-Spoken Thought Content: positive for [place] Judgement: Poor Medications Medications Current Medications Generic Name Dose Route Start Last Admin Trade Name Freq PRN Reason Stop Dose Admin Acetaminophen 650 mg 01/15/21 13:27 Acetaminophen 325 Mg Tablet PO Q6H PRN Pain, Mild (Pain Scale 1-3) Dextrose/Sodium Chloride 1,000 mls @ 100 mls/hr 01/15/21 13:30 01/15/21 14:24 D5ns IVCONT 100 mls/hr .Q10H IRISH Administration Melatonin 3 mg 01/15/21 13:27 Melatonin 3 Mg Tablet PO BEDTIME PRN Insomnia Sodium Chloride 3 ml 01/15/21 16:00 0.9 % Sodium Chloride Flush 3 Ml Syringe IVFLUSH QSHIFT IRISH Allergies Allergies Allergy/AdvReac Type Severity Reaction Status Date / Time No Known Allergies Allergy Verified 01/15/21 07:59 Assessment & Plan Assessment & Plan (1) Opioid use disorder: Status: Acute Code(s): F11.99 - Opioid use, unspecified with unspecified opioid-induced disorder Recommendations: * currently not in any acute withdrawal despite numerous doses of narcan. * monitor for withdrawal and treat as appropriate * will follow up in AM to determine if patient wishes to restart medications for OUD * UDS with labwork * Hepatitis and HIV (2) Opiate overdose: Qualifiers: Encounter type: initial encounter Injury intent: accidental or unintentional Qualified Code(s): T40.601A - Poisoning by unspecified narcotics, accidental (unintentional), initial encounter Status: Acute Code(s): T40.601A - Poisoning by unspecified narcotics, accidental (unintentional), initial encounter 60 minutes spent with patient, gathering information and coordinating care Greater than 50% of the session was spent on counseling and/or coordination of care PMFSH Family History Family history: reviewed and not pertinent Social History Social History Patient Tobacco Use Status: Current everyday Tobacco user Use of substances other than those prescribed or required for medical reasons: Yes Substance Use Type: Heroin Advance Directives: No Advance Directives Information Provided: Yes
[2021-01-15] MEDS: 0.9 % Sodium Chloride Flush 3 ML SYRINGE IVFLUSH (16:53)
--- NOTE | 2021-01-15 16:59 | PC.NURSE ---
dr miller does not want to draw anymore repeat lactic's on this pt.
[2021-01-15 18:06] LABS: Reflex Lactate? 2 Y
--- NOTE | 2021-01-15 18:48 | MHC.CM.PN ---
CM met with admitted pt pending bed assignment. Pt not very conversant with CM, sleepy. Aware of why she is here. Explained that pt. will be admitted to hospital. Pt concerned about getting her Ambien. States she hasn't been able to sleep. PCP is Dr. Mann Amin at [facility]. Reviewed HCP, but pt refused to complete at this time. 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 Pt is very concerned about needing a work note. Explained that will happen at discharge. Pt states she lives alone, has not DME or services and plans to go home at discharge. Pt states she is not interested in any drug rehabilitation. Pt has hx of opioid use disorder. Seen by Karely Murphy. D/C plan is home without services at this time. Transportation by pt mother. CM to follow for d/c needs.
[2021-01-15 19:08] LABS: Glucose Urine UA 100 MG/DL (NEG); Leukocyte Esterase Urine NEG (NEG); Nitrite Urine NEG (NEG); Specific Gravity - Urine >= 1.030 (1.005-1.025); Urine Blood 3+ (NEG); Urine Ketones 5 MG/DL (NEG); Urine Protein 2+ MG/DL (NEG-TRACE)
[2021-01-15 19:11] LABS: Appearance Urine CLOUDY; Color Urine DARK YELLOW
[2021-01-15 19:26] LABS: Bacteria Urine TRACE /LPF; Mucus Urine 3+ /LPF; Squamous Epithelial Cell Urine 3+ /LPF
[2021-01-15 19:31] LABS: Amphetamine Screen Urine Not Detected (Not Detect); Barbiturates, Urine Not Detected (Not Detect); Benzodiazepines Screen Urine POSITIVE (Not Detect); Cannabinoid Screen Urine Not Detected (Not Detect); Cocaine Screen Urine POSITIVE (Not Detect); Opiate Screen Urine POSITIVE (Not Detect); Phencyclidine Screen Urine Not Detected (Not Detect)
--- NOTE | 2021-01-15 19:35 | PC.NURSE ---
REPORT TAKEN FROM RANDY MAHAJAN, FIRST CONTACT WITH PT. RESTING IN BED SKIN PWD RESPIRATIONS EVEN UNLABORED. A&Ox3 WHEN AWOKE. SINUS TACH ON MONITOR. IV FOUND TO BE INFILTRATED UPON THIS RN ENTERING ROOM- IV INFUSION STOPPED AND ACCESS REMOVED. NEW ACCESS OBTAINED IN RIGHT AC. PT REPORTING MELATONIN WILL NOT WORK FOR HER TO HELP SLEEP TONIGHT- REQUESTING AMBIEN WHICH SHE REPORTS TKAING AT HOME. HOSPITALIST NOTIFIED.
[2021-01-15 19:57] LABS: ~Lactic Acid-LAB USE ONLY 2.4 mmol/L (0.5-2.0)
[2021-01-15] MEDS: Acetaminophen 325 MG TABLET 650 MG PO (21:56)
[2021-01-15] MEDS: Zolpidem Tartrate 5 MG TABLET PO (21:57)
--- NOTE | 2021-01-15 22:00 | PC.NURSE ---
PT REPORTS LEFT LEG AND ANKLE PAIN. SLIGHT SWELLING NOTED TO LEFT ANKLE, +CMS- MEDICATED WITH TYLENOL PRN, HOSPITALIST NOTIFIED.
--- NOTE | 2021-01-15 22:43 | PC.NURSE ---
PT RESTING IN BED NO DISTRESS NOTED. VSS. CONTINUES TO AWAIT BED ASSIGNMENT.
--- NOTE | 2021-01-16 | ECG_ITS ---
Test Reason : NSTEMI Blood Pressure : / mmHG Vent. Rate : 092 BPM Atrial Rate : 092 BPM P-R Int : 152 ms QRS Dur : 076 ms QT Int : 354 ms P-R-T Axes : 056 060 010 degrees QTc Int : 437 ms Normal sinus rhythm Nonspecific T wave abnormality Abnormal ECG When compared with ECG of 15-JAN-2021 17:05, No significant change was found Referred By: Mike Bautista Electronically Signed By:MIKE BAUTISTA
[2021-01-16] MEDS: Dextrose 5 % and 0.9 % NaCl 1,000 ML 100 ML IVCONT ×2 (00:58→17:22)
[2021-01-16] MEDS: 0.9 % Sodium Chloride Flush 3 ML SYRINGE IVFLUSH (00:59)
[2021-01-16 02:51] VITALS: BP 96/66; PULSE 96; RESP 20; TEMP 36.6; O2SAT 97
[2021-01-16 02:59] VITALS: BMI 22.4
[2021-01-16 06:30] LABS: Hematocrit 35.2 % (37-47); Hemoglobin 11.3 g/dl (12.0-16.0); Mean Corpuscular HGB Conc 32.1 g/dl (31.0-35.0); Mean Corpuscular Hemoglobin 29.9 pg (27.0-33.0); Mean Corpuscular Volume 93.1 fL (80-98); Mean Platelet Volume 10.7 fL (9.4-12.3); Platelet Count 211 X10*3/uL (160-400); Red Blood Count 3.78 X10*6/uL (4.20-5.50); Red Cell Distribution Width 13.7 % (11.0-16.0); White Blood Count 18.4 X10*3/uL (4.8-10.8)
[2021-01-16 07:18] VITALS: BP 97/65; PULSE 87; RESP 19; TEMP 36.6; O2SAT 99
[2021-01-16 07:20] LABS: Anion Gap 10 (12-20); Blood Urea Nitrogen 5 mg/dL (9-16); Calcium 8.1 mg/dL (8.4-10.2); Carbon Dioxide 25 mmol/L (22-29); Chloride 109 mmol/L (96-108); Creatinine Clr Calc Pharmacy 88.7; Estimated Glomerular Filt Rate > 60; Glucose Random 133 mg/dL (60-115); Potassium 3.7 mmol/L (3.3-5.1); Sodium 140 mmol/L (135-145)
--- NOTE | 2021-01-16 08:45 | P.CDIC_ITS ---
CDI Concurrent Query Service Date: 01/16/21 Documentation Clarification: Please clarify if you are treating a proba ble/suspected/likely or confirmed: Toxic encephalopathy Other diagnosis for the altered mental status POA Undetermined Provider Response: Toxic Encephalopathy PLEASE DO NOT DELETE/MODIFY EXISTING CONTENT Additional information is needed in order to code to the highest accuracy and appropriate Severity of Illness (SOI). Please clarify the information noted below in your progress notes and discharge summary. Risk Factors/Clinical Indicators/Treatments ED: Altered mental status, found unresponsive at home, given Narcan. Patient regained consciousness with spontaneous movement yet confused, ams. Temp 100.6 HR 115 LA H hypoxic, NE type I Critically ill, high probablity of imminent and life threatening deterioration, Opiates + Benzodiazpines + Cocaine + CDS: Brittani Manning CCS, CDIS Contact Number: [phone] Please Review the information above and exercise your independent professional judgment in responding to the query. If you concur, pleas document in the PROGRESS NOTES and DISCHARGE SUMMARY. If you do not agree with the query, pl ease document in the query above. THIS QUERY IS PART OF THE PERMANENT MEDICAL RECORD
--- NOTE | 2021-01-16 09:01 | HO.PM.IMPN ---
Subjective Subjective Date of Service: 01/16/21 Interval History: Seen in f/u for heroin OD, encephalopathy, type 2 mi. She is complaining of numbess in the left foot Review of Systems Gen: no fever Resp: no sob, no cough CV: no chest, no MAX, no leg edema GI: No n/v, no abd pain Neuro: No confusion Physical Exam Vital Signs: Vital Signs: Last Vital Signs Temp 97.9 F 01/16/21 07:18 Pulse 87 01/16/21 07:18 Resp 19 01/16/21 07:18 BP 97/65 01/16/21 07:18 Pulse Ox 99 01/16/21 07:18 Body Mass Index 22.4 Const: General: cooperative Orientation/consciousness: patient oriented x3 Neck: Neck: Yes full ROM Chest: Chest palpation & inspection: normal inspection of the chest Resp: Effort & Inspection: normal respiratory effort and able to speak in complete sentences Auscultation: clear to auscultation bilaterally Cardio: Rate: regular rate Rhythm: regular rhythm Heart sounds: S1 normal heart sound present and S2 normal heart sound present GI: Auscultation: normal bowel sounds Rectal Exam - Female: No tenderness Skin: General skin exam: no rashes or lesions noted Neuro: General: patient oriented x3 Motor exam (neuro): 5/5 motor strength present throughout Extrem: Other: little unsteady on feet Objective Data Current Medications Generic Name Dose Route Start Last Admin Trade Name Christianoq PRN Reason Stop Dose Admin Acetaminophen 650 mg 01/15/21 13:27 01/15/21 21:56 Acetaminophen 325 Mg Tablet PO 650 mg Q6H PRN Administration Pain, Mild (Pain Scale 1-3) Dextrose/Sodium Chloride 1,000 mls @ 100 mls/hr 01/15/21 13:30 01/16/21 00:58 D5ns IVCONT 100 mls/hr .Q10H IRISH Administration Melatonin 3 mg 01/15/21 13:27 Melatonin 3 Mg Tablet PO BEDTIME PRN Insomnia Sodium Chloride 3 ml 01/15/21 16:00 01/16/21 07:33 0.9 % Sodium Chloride Flush 3 Ml Syringe IVFLUSH Not Given QSHIFT IRISH Labs CBC & Chem 7: 01/16/21 04:24 01/16/21 04:20 Labs: Laboratory Results - last 24 hr 07/01/15/21 01/15/21 08:31 08:31 08:31 WBC RBC Hgb Hct MCV MCH MCHC RDW Plt Count MPV Immature Gran % (Auto) 0.8 H Neut % (Auto) 87.2 H Lymph % (Auto) 3.6 L [place] % (Auto) 8.2 Eos % (Auto) 0.0 Baso % (Auto) 0.2 Lymph # (Auto) 1.1 L [place] # (Auto) 2.5 H Eos # (Auto) 0.0 Baso # (Auto) 0.1 Abs Immat Gran (auto) 0.24 H Absolute Neuts (auto) 26.1 H Absolute Nucleated RBC 0.000 Nucleated RBC % (auto) 0.0 Smear Tech's Comments VERIFIED PT INR APTT Sodium 144 Potassium 3.4 Chloride 111 H Carbon Dioxide 18 L Anion Gap 18 BUN 9 Creatinine 1.51 H Estim Creat Clear Calc 42.7 Estimated GFR 40 Random Glucose 89 Lactic Acid Lactic Acid Fup @ 2Hr Lactic Acid Fup @ 4Hr Calcium 8.4 Total Bilirubin 0.5 AST 32 H ALT 13 Alkaline Phosphatase 60 Total Creatine Kinase 255 H Troponin I High Sens 309.1 H* B-Natriuretic Peptide 24 Total Protein 7.1 Albumin 4.4 Lipase 22 TSH 0.68 Beta HCG, Quant < 2 Urine Color Urine Appearance Urine pH Ur Specific [place] Urine Protein Urine Glucose (UA) Urine Ketones Urine Blood Urine Nitrite Ur Leukocyte Esterase Urine RBC Urine WBC Ur Squamous Epith Cells Urine Bacteria Granular Casts Urine Mucus Salicylates < 5.0 L Urine Opiates Screen Acetaminophen < 1 Ur Barbiturates Screen Ur Phencyclidine Scrn Ur Amphetamines Screen U Benzodiazepines Scrn Urine Cocaine Screen U Marijuana (THC) Screen Ethyl Alcohol 01/15/21 01/15/21 01/15/21 08:31 10:43 10:43 WBC RBC Hgb Hct MCV MCH MCHC RDW Plt Count MPV Immature Gran % (Auto) Neut % (Auto) Lymph % (Auto) [place] % (Auto) Eos % (Auto) Baso % (Auto) Lymph # (Auto) [place] # (Auto) Eos # (Auto) Baso # (Auto) Abs Immat Gran (auto) Absolute Neuts (auto) Absolute Nucleated RBC Nucleated RBC % (auto) Smear Tech's Comments PT INR APTT Sodium Potassium Chloride Carbon Dioxide Anion Gap BUN Creatinine Estim Creat Clear Calc Estimated GFR Random Glucose Lactic Acid Lactic Acid Fup @ 2Hr 1.9 Lactic Acid Fup @ 4Hr Calcium Total Bilirubin AST ALT Alkaline Phosphatase Total Creatine Kinase Troponin I High Sens 693.9 H* D B-Natriuretic Peptide Total Protein Albumin Lipase TSH Beta HCG, Quant Urine Color Urine Appearance Urine pH Ur Specific [place] Urine Protein Urine Glucose (UA) Urine Ketones Urine Blood Urine Nitrite Ur Leukocyte Esterase Urine RBC Urine WBC Ur Squamous Epith Cells Urine Bacteria Granular Casts Urine Mucus Salicylates Urine Opiates Screen Acetaminophen Ur Barbiturates Screen Ur Phencyclidine Scrn Ur Amphetamines Screen U Benzodiazepines Scrn Urine Cocaine Screen U Marijuana (THC) Screen Ethyl Alcohol < 10 01/15/21 01/15/21 01/15/21 12:40 13:42 13:42 WBC RBC Hgb Hct MCV MCH MCHC RDW Plt Count MPV Immature Gran % (Auto) Neut % (Auto) Lymph % (Auto) [place] % (Auto) Eos % (Auto) Baso % (Auto) Lymph # (Auto) [place] # (Auto) Eos # (Auto) Baso # (Auto) Abs Immat Gran (auto) Absolute Neuts (auto) Absolute Nucleated RBC Nucleated RBC % (auto) Smear Tech's Comments PT 15.7 H INR 1.4 H APTT 33.8 Sodium Potassium Chloride Carbon Dioxide Anion Gap BUN Creatinine Estim Creat Clear Calc Estimated GFR Random Glucose Lactic Acid Lactic Acid Fup @ 2Hr Lactic Acid Fup @ 4Hr Calcium Total Bilirubin AST ALT Alkaline Phosphatase Total Creatine Kinase 1021 H D Troponin I High Sens 1168.1 H* D B-Natriuretic Peptide Total Protein Albumin Lipase TSH Beta HCG, Quant Urine Color Urine Appearance Urine pH Ur Specific [place] Urine Protein Urine Glucose (UA) Urine Ketones Urine Blood Urine Nitrite Ur Leukocyte Esterase Urine RBC Urine WBC Ur Squamous Epith Cells Urine Bacteria Granular Casts Urine Mucus Salicylates Urine Opiates Screen Acetaminophen Ur Barbiturates Screen Ur Phencyclidine Scrn Ur Amphetamines Screen U Benzodiazepines Scrn Urine Cocaine Screen U Marijuana (THC) Screen Ethyl Alcohol 01/15/21 01/15/21 01/15/21 13:42 13:42 15:55 WBC 25.6 H RBC 4.38 Hgb 13.2 Hct 40.8 MCV 93.2 MCH 30.1 MCHC 32.4 RDW 13.5 Plt Count 232 MPV 10.1 Immature Gran % (Auto) Neut % (Auto) Lymph % (Auto) [place] % (Auto) Eos % (Auto) Baso % (Auto) Lymph # (Auto) [place] # (Auto) Eos # (Auto) Baso # (Auto) Abs Immat Gran (auto) Absolute Neuts (auto) Absolute Nucleated RBC 0.000 Nucleated RBC % (auto) 0.0 Smear Tech's Comments PT INR APTT Sodium Potassium Chloride Carbon Dioxide Anion Gap BUN Creatinine Estim Creat Clear Calc Estimated GFR Random Glucose Lactic Acid 2.6 H* Lactic Acid Fup @ 2Hr 2.8 H* Lactic Acid Fup @ 4Hr Calcium Total Bilirubin AST ALT Alkaline Phosphatase Total Creatine Kinase Troponin I High Sens B-Natriuretic Peptide Total Protein Albumin Lipase TSH Beta HCG, Quant Urine Color Urine Appearance Urine pH Ur Specific [place] Urine Protein Urine Glucose (UA) Urine Ketones Urine Blood Urine Nitrite Ur Leukocyte Esterase Urine RBC Urine WBC Ur Squamous Epith Cells Urine Bacteria Granular Casts Urine Mucus Salicylates Urine Opiates Screen Acetaminophen Ur Barbiturates Screen Ur Phencyclidine Scrn Ur Amphetamines Screen U Benzodiazepines Scrn Urine Cocaine Screen U Marijuana (THC) Screen Ethyl Alcohol 01/15/21 01/15/21 01/15/21 18:57 18:57 19:09 WBC RBC Hgb Hct MCV MCH MCHC RDW Plt Count MPV Immature Gran % (Auto) Neut % (Auto) Lymph % (Auto) [place] % (Auto) Eos % (Auto) Baso % (Auto) Lymph # (Auto) [place] # (Auto) Eos # (Auto) Baso # (Auto) Abs Immat Gran (auto) Absolute Neuts (auto) Absolute Nucleated RBC Nucleated RBC % (auto) Smear Tech's Comments PT INR APTT Sodium Potassium Chloride Carbon Dioxide Anion Gap BUN Creatinine Estim Creat Clear Calc Estimated GFR Random Glucose Lactic Acid Lactic Acid Fup @ 2Hr Lactic Acid Fup @ 4Hr 2.4 H* Calcium Total Bilirubin AST ALT Alkaline Phosphatase Total Creatine Kinase Troponin I High Sens B-Natriuretic Peptide Total Protein Albumin Lipase TSH Beta HCG, Quant Urine Color DARK YELLOW Urine Appearance CLOUDY Urine pH 6.0 Ur Specific [place] >= 1.030 H Urine Protein 2+ H Urine Glucose (UA) 100 H Urine Ketones 5 Urine Blood 3+ H Urine Nitrite NEG Ur Leukocyte Esterase NEG Urine RBC 1-4 Urine WBC 10-14 H Ur Squamous Epith Cells 3+ Urine Bacteria TRACE Granular Casts 1-4 Urine Mucus 3+ Salicylates Urine Opiates Screen POSITIVE H Acetaminophen Ur Barbiturates Screen Not Detected Ur Phencyclidine Scrn Not Detected Ur Amphetamines Screen Not Detected U Benzodiazepines Scrn POSITIVE H Urine Cocaine Screen POSITIVE H U Marijuana (THC) Screen Not Detected Ethyl Alcohol 01/16/21 01/16/21 04:20 04:24 WBC 18.4 H RBC 3.78 L Hgb 11.3 L Hct 35.2 L MCV 93.1 MCH 29.9 MCHC 32.1 RDW 13.7 Plt Count 211 MPV 10.7 Immature Gran % (Auto) Neut % (Auto) Lymph % (Auto) [place] % (Auto) Eos % (Auto) Baso % (Auto) Lymph # (Auto) [place] # (Auto) Eos # (Auto) Baso # (Auto) Abs Immat Gran (auto) Absolute Neuts (auto) Absolute Nucleated RBC 0.000 Nucleated RBC % (auto) 0.0 Smear Tech's Comments PT INR APTT Sodium 140 Potassium 3.7 Chloride 109 H Carbon Dioxide 25 Anion Gap 10 L BUN 5 L Creatinine 0.76 Estim Creat Clear Calc 88.7 Estimated GFR > 60 Random Glucose 133 H D Lactic Acid Lactic Acid Fup @ 2Hr Lactic Acid Fup @ 4Hr Calcium 8.1 L Total Bilirubin AST ALT Alkaline Phosphatase Total Creatine Kinase Troponin I High Sens B-Natriuretic Peptide Total Protein Albumin Lipase TSH Beta HCG, Quant Urine Color Urine Appearance Urine pH Ur Specific [place] Urine Protein Urine Glucose (UA) Urine Ketones Urine Blood Urine Nitrite Ur Leukocyte Esterase Urine RBC Urine WBC Ur Squamous Epith Cells Urine Bacteria Granular Casts Urine Mucus Salicylates Urine Opiates Screen Acetaminophen Ur Barbiturates Screen Ur Phencyclidine Scrn Ur Amphetamines Screen U Benzodiazepines Scrn Urine Cocaine Screen U Marijuana (THC) Screen Ethyl Alcohol Assessment and Plan (1) Lactic acidosis: Status: Acute Assessment and Plan: Opioid overdose BIB Lactic acidosis Reactive Leukocytosis Elevated troponin-likely type 1 MO from hypoxia from opioid OD [place] Plan: She tells me the OD was unintentional, I will ask addition medicine to see her-meanwhile, clodine, ativan PRN for withdrawal symptoms BIB has resolved with fluid Leukocytosis is likey reactive there is no PNA on CXR, she has received Abx in ED for possible aspiration, but will hold off aditional Abx for now--She does not have Sepsis, WBC is down to 18, repeat CXR with 2 view if PNA Augmentin Lactic acidosis is not due to sepsis and should correct with IVF alone [place] with slighty high INR monitor Elevated troponin from type 2 MO from proably hypooxia and possible hypotension from over--I will check with cardiology to see if anything, if at all, needs to be done. Repeat troponin. Echo today, cardiology to assess Numbness in the foot likely compressive neuropathy from being down--PT, Neuro input Opioid dependence--Addiction consult ambulate for DVT prophylaxis Quality Stroke Does the patient have a stroke diagnosis?: No VTE Prior VTE?: No VTE Risk Level:: Medical - low VTE Device Contraindication: N/A - Device Ordered VTE Drug Contraindication: N/A - Med Ordered
--- NOTE | 2021-01-16 10:14 | P.CONCA_ITS ---
History of Present Illness History of Present Illness Date of Service: 01/16/21 Consult reason: myocardial infarction Chief complaint: SIRS Heroin Overdose Narrative: This is a cardiology consultation regarding elevated troponins. Patient does not have any known cardiac problems at all. She states that she does use drugs however. She overdosed on heroin and that led to the hospitalization. In this context, she had troponin checked and they were abnormal. Patient does not have any clear anginal-type symptoms. She does have pain on touching the chest but not otherwise. No previous coronary artery disease or any other symptoms. She has used cocaine in the past but she denies any recent use. She also smokes. Review of Systems Review of Systems: Yes all other systems are reviewed and are negative Cardiovascular: Cardiovascular: Reports as per HPI, Reports no additional cardiovascular complaints, Denies acrocyanosis, Denies cool extremities, Denies painful fingertips, Reports chest pain, Reports chest pain at rest, Denies diaphoresis, Denies syncope, Denies irregular heart rhythm, Denies claudication, Denies leg edema, Denies lightheadedness, Denies palpitations and Denies dyspnea Respiratory: Respiratory: Denies dyspnea Neurologic: Denies syncope Endocrine: Endocrine: Denies palpitations PMF Family History Pertinent family history: Patient not able to give much information about her family. Family history: reviewed and not pertinent Social History Social History Household Members: None Housing: Apartment Do you presently have visiting nurse or other home services: No Patient Tobacco Use Status: Current everyday Tobacco user Tobacco use type: Cigarette Cigarette Packs Per Day: 0.5 Cigarettes Per Day: 10.0 Substance Use Type: Heroin service: No Current occupational status: employed Meds Allergies Allergy/AdvReac Type Severity Reaction Status Date / Time No Known Allergies Allergy Verified 01/15/21 07:59 Active Medications: Current Medications Generic Name Dose Route Start Last Admin Trade Name Freq PRN Reason Stop Dose Admin Acetaminophen 650 mg 01/15/21 13:27 01/15/21 21:56 Acetaminophen 325 Mg Tablet PO 650 mg Q6H PRN Administration Pain, Mild (Pain Scale 1-3) Buprenorphine/Naloxone 1 film 01/16/21 10:30 Buprenorphine/Naloxone 4/1 Mg Film SUBLINGUAL BID IRISH Enoxaparin Sodium 55 mg 01/16/21 11:00 Enoxaparin Sodium 60 Mg/0.6 Ml Syringe 1 mg/kg (55 mg) SUBCUT Q12H [facility] Dextrose/Sodium Chloride 1,000 mls @ 100 mls/hr 01/15/21 13:30 01/16/21 09:53 D5ns IVCONT Not Given .Q10H IRISH Melatonin 3 mg 01/15/21 13:27 Melatonin 3 Mg Tablet PO BEDTIME PRN Insomnia Nicotine Polacrilex 4 mg 01/16/21 10:07 Nicotine Polacrilex Lozenge 4 Mg Lozenge BUCCAL Q1H PRN Nicotine Cravings Sodium Chloride 3 ml 01/15/21 16:00 01/16/21 07:33 0.9 % Sodium Chloride Flush 3 Ml Syringe IVFLUSH Not Given QSHIFT [facility] Home Medications Medication Instructions Recorded Confirmed Last Taken Type zolpidem 10 mg tablet 1 tab PO BEDTIME 01/15/21 01/15/21 Unknown History Physical Exam Vital Signs: Vital Signs: Last Vital Signs Temp 97.9 F 01/16/21 07:18 Pulse 87 01/16/21 07:18 Resp 19 01/16/21 07:18 BP 97/65 01/16/21 07:18 Pulse Ox 99 01/16/21 07:18 Body Mass Index 22.4 Const: General: cooperative and no acute distress HENMT: Other: Unremarkable Neck: Neck: Yes normal visual inspection Chest: Chest palpation & inspection: normal inspection of the chest Resp: Auscultation: clear to auscultation bilaterally, no crackles and no wheezes Cardio: Jugular venous distension: no JVD Palpation: normal PMI Heart sounds: S1 normal heart sound present, S2 normal heart sound present, no gallops, no murmurs and no rubs GI: Palpation (GI): Soft to palpation Back/Spine/Pelvis: Other: unremarkable Skin: General skin exam: no rashes or lesions noted Neuro: Cranial nerves: Yes Other cranial nerve findings present Extrem: General: Yes no clubbing, cyanosis or edema Psych: Mental Status: other Results Labs and Meds Result diagrams: 01/16/21 04:24 01/16/21 04:20 Lab results: Laboratory Results - last 24 hr 01/15/21 01/15/21 01/15/21 10:43 10:43 12:40 WBC RBC Hgb Hct MCV MCH MCHC RDW Plt Count MPV Absolute Nucleated RBC Nucleated RBC % (auto) PT 15.7 H INR 1.4 H APTT 33.8 Sodium Potassium Chloride Carbon Dioxide Anion Gap BUN Creatinine Estim Creat Clear Calc Estimated GFR Random Glucose Lactic Acid Lactic Acid Fup @ 2Hr 1.9 Lactic Acid Fup @ 4Hr Calcium Total Creatine Kinase Troponin I High Sens 693.9 H* D Urine Color Urine Appearance Urine pH Ur Specific [place] Urine Protein Urine Glucose (UA) Urine Ketones Urine Blood Urine Nitrite Ur Leukocyte Esterase Urine RBC Urine WBC Ur Squamous Epith Cells Urine Bacteria Granular Casts Urine Mucus Urine Opiates Screen Ur Barbiturates Screen Ur Phencyclidine Scrn Ur Amphetamines Screen U Benzodiazepines Scrn Urine Cocaine Screen U Marijuana (THC) Screen 01/15/21 01/15/21 01/15/21 13:42 13:42 13:42 WBC 25.6 H RBC 4.38 Hgb 13.2 Hct 40.8 MCV 93.2 MCH 30.1 MCHC 32.4 RDW 13.5 Plt Count 232 MPV 10.1 Absolute Nucleated RBC 0.000 Nucleated RBC % (auto) 0.0 PT INR APTT Sodium Potassium Chloride Carbon Dioxide Anion Gap BUN Creatinine Estim Creat Clear Calc Estimated GFR Random Glucose Lactic Acid Lactic Acid Fup @ 2Hr Lactic Acid Fup @ 4Hr Calcium Total Creatine Kinase 1021 H D Troponin I High Sens 1168.1 H* D Urine Color Urine Appearance Urine pH Ur Specific [place] Urine Protein Urine Glucose (UA) Urine Ketones Urine Blood Urine Nitrite Ur Leukocyte Esterase Urine RBC Urine WBC Ur Squamous Epith Cells Urine Bacteria Granular Casts Urine Mucus Urine Opiates Screen Ur Barbiturates Screen Ur Phencyclidine Scrn Ur Amphetamines Screen U Benzodiazepines Scrn Urine Cocaine Screen U Marijuana (THC) Screen 01/15/21 01/15/21 01/15/21 13:42 15:55 18:57 WBC RBC Hgb Hct MCV MCH MCHC RDW Plt Count MPV Absolute Nucleated RBC Nucleated RBC % (auto) PT INR APTT Sodium Potassium Chloride Carbon Dioxide Anion Gap BUN Creatinine Estim Creat Clear Calc Estimated GFR Random Glucose Lactic Acid 2.6 H* Lactic Acid Fup @ 2Hr 2.8 H* Lactic Acid Fup @ 4Hr Calcium Total Creatine Kinase Troponin I High Sens Urine Color DARK YELLOW Urine Appearance CLOUDY Urine pH 6.0 Ur Specific [place] >= 1.030 H Urine Protein 2+ H Urine Glucose (UA) 100 H Urine Ketones 5 Urine Blood 3+ H Urine Nitrite NEG Ur Leukocyte Esterase NEG Urine RBC 1-4 Urine WBC 10-14 H Ur Squamous Epith Cells 3+ Urine Bacteria TRACE Granular Casts 1-4 Urine Mucus 3+ Urine Opiates Screen Ur Barbiturates Screen Ur Phencyclidine Scrn Ur Amphetamines Screen U Benzodiazepines Scrn Urine Cocaine Screen U Marijuana (THC) Screen 01/15/21 01/15/21 01/16/21 18:57 19:09 04:20 WBC RBC Hgb Hct MCV MCH MCHC RDW Plt Count MPV Absolute Nucleated RBC Nucleated RBC % (auto) PT INR APTT Sodium 140 Potassium 3.7 Chloride 109 H Carbon Dioxide 25 Anion Gap 10 L BUN 5 L Creatinine 0.76 Estim Creat Clear Calc 88.7 Estimated GFR > 60 Random Glucose 133 H D Lactic Acid Lactic Acid Fup @ 2Hr Lactic Acid Fup @ 4Hr 2.4 H* Calcium 8.1 L Total Creatine Kinase Troponin I High Sens Urine Color Urine Appearance Urine pH Ur Specific [place] Urine Protein Urine Glucose (UA) Urine Ketones Urine Blood Urine Nitrite Ur Leukocyte Esterase Urine RBC Urine WBC Ur Squamous Epith Cells Urine Bacteria Granular Casts Urine Mucus Urine Opiates Screen POSITIVE H Ur Barbiturates Screen Not Detected Ur Phencyclidine Scrn Not Detected Ur Amphetamines Screen Not Detected U Benzodiazepines Scrn POSITIVE H Urine Cocaine Screen POSITIVE H U Marijuana (THC) Screen Not Detected 01/16/21 04:24 WBC 18.4 H RBC 3.78 L Hgb 11.3 L Hct 35.2 L MCV 93.1 MCH 29.9 MCHC 32.1 RDW 13.7 Plt Count 211 MPV 10.7 Absolute Nucleated RBC 0.000 Nucleated RBC % (auto) 0.0 PT INR APTT Sodium Potassium Chloride Carbon Dioxide Anion Gap BUN Creatinine Estim Creat Clear Calc Estimated GFR Random Glucose Lactic Acid Lactic Acid Fup @ 2Hr Lactic Acid Fup @ 4Hr Calcium Total Creatine Kinase Troponin I High Sens Urine Color Urine Appearance Urine pH Ur Specific [place] Urine Protein Urine Glucose (UA) Urine Ketones Urine Blood Urine Nitrite Ur Leukocyte Esterase Urine RBC Urine WBC Ur Squamous Epith Cells Urine Bacteria Granular Casts Urine Mucus Urine Opiates Screen Ur Barbiturates Screen Ur Phencyclidine Scrn Ur Amphetamines Screen U Benzodiazepines Scrn Urine Cocaine Screen U Marijuana (THC) Screen ECG Interpretation: EKG with Sinus rhythm and no clear ischemic changes. Imaging Radiologist's impression: Impressions Head CT 01/15/21 08:00 IMPRESSION: Normal study. Ankle X-Ray 01/15/21 23:10 IMPRESSION: No acute injury seen. Assessment and Plan (1) NSTEMI (non-ST elevated myocardial infarction): Status: Acute (2) Opiate overdose: Qualifiers: Encounter type: initial encounter Injury intent: accidental or unintentional Qualified Code(s): T40.601A - Poisoning by unspecified narcotics, accidental (unintentional), initial encounter Status: Acute Labs show elevated high sensitivity troponins in the non ST elevation myocardial infarction range. Most likely all from respiratory arrest/hypoxia as she was unresponsive. Do not believe this is primary acute coronary syndrome. Will review the echocardiogram for any obvious wall motion abnormalities. Okay to give a dose of Lovenox now. Will follow with you. Procedures Date of Service Date of Service: 01/16/21
[2021-01-16] MEDS: Buprenorphine/Naloxone 4/1 mg FILM 1 FILM SUBLINGUAL ×2 (10:22→20:33)
[2021-01-16 10:28] VITALS: BP 97/65; PULSE 87; O2SAT 99
[2021-01-16 10:33] LABS: Troponin-I High Sensitivity 164.5 ng/L (<3.5-17.0)
--- NOTE | 2021-01-16 11:22 | MHC.CM.PN ---
Per ROUNDS discussion, Patient is not yet medically cleared for dc (C/O Numbness in (L) foot, Cardiology following, slightly high INR). Home is the goal for dc VS possible Care Team interventions. CM will continue to follow for dc planning.
[2021-01-16 11:28] VITALS: BP 99/63; PULSE 94; RESP 20; TEMP 36.7; O2SAT 97
[2021-01-16] MEDS: Enoxaparin Sodium 60 MG/0.6 ML SYRINGE 55 MG SUBCUT (11:56)
[2021-01-16] MEDS: Nicotine Polacrilex Lozenge 4 MG LOZENGE BUCCAL (12:49)
--- NOTE | 2021-01-16 14:14 | MHC.RECOVRN ---
T/w met with pt to f/u after receiving Suboxone, 4 mg, this morning. Pt reports positive effects, denies withdrawal symptoms. Pt reports constipation. Pt concerned regarding Whitneyien vika, pt reports being prescribed 10 mg at home and would like to receive that dose while inpatient. Case discussed with pts RN as well as Karely Murphy APRN.
[2021-01-16] MEDS: Milk of Magnesia 30 ML ORAL.SUSP PO (14:57)
--- NOTE | 2021-01-16 15:07 | HO.ADDICTPRO ---
Subjective Subjective Date of Service: 01/16/21 Reason For Visit: SIRS Heroin Overdose Interim History: Patient seen this morning with RS RN. Patient much more awake than yesterday. Somewhat better history obtained--patient somewhat guarded and evasive when answering some questions. Patient reports that she had been in recovery for about 4 years. Reports one [address] commitment. Has been on Suboxone for some time at [facility] in [place]. Unclear when she began to use opiates again, but states it was about a month ago. She identifies not being able to see her daughter as a major stressor and reports overall depression and feeling alone . She also states recent relationship ending as another contributing factor. She states that she also uses crack cocaine, and has been buying Klonopin as psychiatric provider will no longer prescribe due to substance use. On night of overdose she reports taking 4mg of Klonopin in addition to heroin. She denies that this was an attempt to end her life, denies any suicidal ideation, but she is quite depressed. Discussed previous treatment for depression and she reports paxil was not helpful. States that Klonopin is the only medication she has found to be helpful with her sx. Denies any history of psychiatric admissions. has a therapist at [facility] that she sees weekly. Review of Systems Review of Systems: patient reporting pain in her chest, face, leg. Reporting anxiety. Denies nausea, loose stools. Mental Status Exam Mental Status Exam Patient Appearance: Appropriate Patient Orientation: Person, Place, Time and Situation Level of Consciousness: Awake, Appropriate and Alert Patient Behavior: Guarded Mood Description: Depressed and Blunted Affect Description: Depressed and Blunted Hallucinations: None Thought Process: Rumination Judgement: Fair Diagnostics Vital Signs (24Hr): Vital Signs - 24 hr 01/15/21 15:11 01/15/21 17:48 01/15/21 20:00 Temperature 98.9 F Pulse Rate 100 102 H 108 H Respiratory Rate 18 16 18 Blood Pressure 112/73 105/62 115/72 Pulse Oximetry 98 97 96 01/16/21 02:51 01/16/21 07:18 01/16/21 10:28 Temperature 97.8 F 97.9 F Pulse Rate 96 87 87 Respiratory Rate 20 19 Blood Pressure 96/66 97/65 97/65 Pulse Oximetry 97 99 99 01/16/21 11:28 Temperature 98.0 F Pulse Rate 94 Respiratory Rate 20 Blood Pressure 99/63 Pulse Oximetry 97 Body Mass Index 22.4 Labs Results: 01/16/21 04:24 01/16/21 04:20 Labs: Laboratory Results - last 48 hr 01/15/21 01/15/21 01/15/21 08:31 08:31 08:31 WBC 30.0 H* RBC 4.48 Hgb 13.4 Hct 41.6 MCV 92.9 MCH 29.9 MCHC 32.2 RDW 13.5 Plt Count 247 MPV 10.2 Immature Gran % (Auto) 0.8 H Neut % (Auto) 87.2 H Lymph % (Auto) 3.6 L [place] % (Auto) 8.2 Eos % (Auto) 0.0 Baso % (Auto) 0.2 Lymph # (Auto) 1.1 L [place] # (Auto) 2.5 H Eos # (Auto) 0.0 Baso # (Auto) 0.1 Abs Immat Gran (auto) 0.24 H Absolute Neuts (auto) 26.1 H Absolute Nucleated RBC 0.000 Nucleated RBC % (auto) 0.0 Smear Tech's Comments VERIFIED PT INR APTT Sodium 144 Potassium 3.4 Chloride 111 H Carbon Dioxide 18 L Anion Gap 18 BUN 9 Creatinine 1.51 H Estim Creat Clear Calc 42.7 Estimated GFR 40 Random Glucose 89 Lactic Acid Lactic Acid Fup @ 2Hr Lactic Acid Fup @ 4Hr Calcium 8.4 Total Bilirubin 0.5 AST 32 H ALT 13 Alkaline Phosphatase 60 Total Creatine Kinase 255 H Troponin I High Sens B-Natriuretic Peptide Total Protein 7.1 Albumin 4.4 Lipase 22 TSH 0.68 Beta HCG, Quant < 2 Urine Color Urine Appearance Urine pH Ur Specific [place] Urine Protein Urine Glucose (UA) Urine Ketones Urine Blood Urine Nitrite Ur Leukocyte Esterase Urine RBC Urine WBC Ur Squamous Epith Cells Urine Bacteria Granular Casts Urine Mucus Salicylates < 5.0 L Urine Opiates Screen Acetaminophen < 1 Ur Barbiturates Screen Ur Phencyclidine Scrn Ur Amphetamines Screen U Benzodiazepines Scrn Urine Cocaine Screen U Marijuana (THC) Screen Ethyl Alcohol COVID-19 (ADALI) Negative COVID-19 Clin Com See Note 01/15/21 01/15/21 01/15/21 08:31 08:31 08:31 WBC RBC Hgb Hct MCV MCH MCHC RDW Plt Count MPV Immature Gran % (Auto) Neut % (Auto) Lymph % (Auto) [place] % (Auto) Eos % (Auto) Baso % (Auto) Lymph # (Auto) [place] # (Auto) Eos # (Auto) Baso # (Auto) Abs Immat Gran (auto) Absolute Neuts (auto) Absolute Nucleated RBC Nucleated RBC % (auto) Smear Tech's Comments PT INR APTT Sodium Potassium Chloride Carbon Dioxide Anion Gap BUN Creatinine Estim Creat Clear Calc Estimated GFR Random Glucose Lactic Acid 7.3 H* Lactic Acid Fup @ 2Hr Lactic Acid Fup @ 4Hr Calcium Total Bilirubin AST ALT Alkaline Phosphatase Total Creatine Kinase Troponin I High Sens 309.1 H* B-Natriuretic Peptide 24 Total Protein Albumin Lipase TSH Beta HCG, Quant Urine Color Urine Appearance Urine pH Ur Specific [place] Urine Protein Urine Glucose (UA) Urine Ketones Urine Blood Urine Nitrite Ur Leukocyte Esterase Urine RBC Urine WBC Ur Squamous Epith Cells Urine Bacteria Granular Casts Urine Mucus Salicylates Urine Opiates Screen Acetaminophen Ur Barbiturates Screen Ur Phencyclidine Scrn Ur Amphetamines Screen U Benzodiazepines Scrn Urine Cocaine Screen U Marijuana (THC) Screen Ethyl Alcohol < 10 COVID-19 (ADALI) COVID-19 Clin Com 01/15/21 01/15/21 01/15/21 10:43 10:43 12:40 WBC RBC Hgb Hct MCV MCH MCHC RDW Plt Count MPV Immature Gran % (Auto) Neut % (Auto) Lymph % (Auto) [place] % (Auto) Eos % (Auto) Baso % (Auto) Lymph # (Auto) [place] # (Auto) Eos # (Auto) Baso # (Auto) Abs Immat Gran (auto) Absolute Neuts (auto) Absolute Nucleated RBC Nucleated RBC % (auto) Smear Tech's Comments PT 15.7 H INR 1.4 H APTT 33.8 Sodium Potassium Chloride Carbon Dioxide Anion Gap BUN Creatinine Estim Creat Clear Calc Estimated GFR Random Glucose Lactic Acid Lactic Acid Fup @ 2Hr 1.9 Lactic Acid Fup @ 4Hr Calcium Total Bilirubin AST ALT Alkaline Phosphatase Total Creatine Kinase Troponin I High Sens 693.9 H* D B-Natriuretic Peptide Total Protein Albumin Lipase TSH Beta HCG, Quant Urine Color Urine Appearance Urine pH Ur Specific [place] Urine Protein Urine Glucose (UA) Urine Ketones Urine Blood Urine Nitrite Ur Leukocyte Esterase Urine RBC Urine WBC Ur Squamous Epith Cells Urine Bacteria Granular Casts Urine Mucus Salicylates Urine Opiates Screen Acetaminophen Ur Barbiturates Screen Ur Phencyclidine Scrn Ur Amphetamines Screen U Benzodiazepines Scrn Urine Cocaine Screen U Marijuana (THC) Screen Ethyl Alcohol COVID-19 (ADALI) COVID-19 Infoharmoni 01/15/21 01/15/21 01/15/21 13:42 13:42 13:42 WBC 25.6 H RBC 4.38 Hgb 13.2 Hct 40.8 MCV 93.2 MCH 30.1 MCHC 32.4 RDW 13.5 Plt Count 232 MPV 10.1 Immature Gran % (Auto) Neut % (Auto) Lymph % (Auto) [place] % (Auto) Eos % (Auto) Baso % (Auto) Lymph # (Auto) [place] # (Auto) Eos # (Auto) Baso # (Auto) Abs Immat Gran (auto) Absolute Neuts (auto) Absolute Nucleated RBC 0.000 Nucleated RBC % (auto) 0.0 Smear Tech's Comments PT INR APTT Sodium Potassium Chloride Carbon Dioxide Anion Gap BUN Creatinine Estim Creat Clear Calc Estimated GFR Random Glucose Lactic Acid Lactic Acid Fup @ 2Hr Lactic Acid Fup @ 4Hr Calcium Total Bilirubin AST ALT Alkaline Phosphatase Total Creatine Kinase 1021 H D Troponin I High Sens 1168.1 H* D B-Natriuretic Peptide Total Protein Albumin Lipase TSH Beta HCG, Quant Urine Color Urine Appearance Urine pH Ur Specific [place] Urine Protein Urine Glucose (UA) Urine Ketones Urine Blood Urine Nitrite Ur Leukocyte Esterase Urine RBC Urine WBC Ur Squamous Epith Cells Urine Bacteria Granular Casts Urine Mucus Salicylates Urine Opiates Screen Acetaminophen Ur Barbiturates Screen Ur Phencyclidine Scrn Ur Amphetamines Screen U Benzodiazepines Scrn Urine Cocaine Screen U Marijuana (THC) Screen Ethyl Alcohol COVID-19 (ADALI) COVID-19 Infoharmoni 01/15/21 01/15/21 01/15/21 13:42 15:55 18:57 WBC RBC Hgb Hct MCV MCH MCHC RDW Plt Count MPV Immature Gran % (Auto) Neut % (Auto) Lymph % (Auto) [place] % (Auto) Eos % (Auto) Baso % (Auto) Lymph # (Auto) [place] # (Auto) Eos # (Auto) Baso # (Auto) Abs Immat Gran (auto) Absolute Neuts (auto) Absolute Nucleated RBC Nucleated RBC % (auto) Smear Tech's Comments PT INR APTT Sodium Potassium Chloride Carbon Dioxide Anion Gap BUN Creatinine Estim Creat Clear Calc Estimated GFR Random Glucose Lactic Acid 2.6 H* Lactic Acid Fup @ 2Hr 2.8 H* Lactic Acid Fup @ 4Hr Calcium Total Bilirubin AST ALT Alkaline Phosphatase Total Creatine Kinase Troponin I High Sens B-Natriuretic Peptide Total Protein Albumin Lipase TSH Beta HCG, Quant Urine Color DARK YELLOW Urine Appearance CLOUDY Urine pH 6.0 Ur Specific [place] >= 1.030 H Urine Protein 2+ H Urine Glucose (UA) 100 H Urine Ketones 5 Urine Blood 3+ H Urine Nitrite NEG Ur Leukocyte Esterase NEG Urine RBC 1-4 Urine WBC 10-14 H Ur Squamous Epith Cells 3+ Urine Bacteria TRACE Granular Casts 1-4 Urine Mucus 3+ Salicylates Urine Opiates Screen Acetaminophen Ur Barbiturates Screen Ur Phencyclidine Scrn Ur Amphetamines Screen U Benzodiazepines Scrn Urine Cocaine Screen U Marijuana (THC) Screen Ethyl Alcohol COVID-19 (ADALI) COVID-19 Infoharmoni 01/15/21 01/15/21 01/16/21 18:57 19:09 04:20 WBC RBC Hgb Hct MCV MCH MCHC RDW Plt Count MPV Immature Gran % (Auto) Neut % (Auto) Lymph % (Auto) [place] % (Auto) Eos % (Auto) Baso % (Auto) Lymph # (Auto) [place] # (Auto) Eos # (Auto) Baso # (Auto) Abs Immat Gran (auto) Absolute Neuts (auto) Absolute Nucleated RBC Nucleated RBC % (auto) Smear Tech's Comments PT INR APTT Sodium 140 Potassium 3.7 Chloride 109 H Carbon Dioxide 25 Anion Gap 10 L BUN 5 L Creatinine 0.76 Estim Creat Clear Calc 88.7 Estimated GFR > 60 Random Glucose 133 H D Lactic Acid Lactic Acid Fup @ 2Hr Lactic Acid Fup @ 4Hr 2.4 H* Calcium 8.1 L Total Bilirubin AST ALT Alkaline Phosphatase Total Creatine Kinase Troponin I High Sens B-Natriuretic Peptide Total Protein Albumin Lipase TSH Beta HCG, Quant Urine Color Urine Appearance Urine pH Ur Specific [place] Urine Protein Urine Glucose (UA) Urine Ketones Urine Blood Urine Nitrite Ur Leukocyte Esterase Urine RBC Urine WBC Ur Squamous Epith Cells Urine Bacteria Granular Casts Urine Mucus Salicylates Urine Opiates Screen POSITIVE H Acetaminophen Ur Barbiturates Screen Not Detected Ur Phencyclidine Scrn Not Detected Ur Amphetamines Screen Not Detected U Benzodiazepines Scrn POSITIVE H Urine Cocaine Screen POSITIVE H U Marijuana (THC) Screen Not Detected Ethyl Alcohol COVID-19 (ADALI) COVID-19 Clin Com 01/16/21 01/16/21 04:24 09:09 WBC 18.4 H RBC 3.78 L Hgb 11.3 L Hct 35.2 L MCV 93.1 MCH 29.9 MCHC 32.1 RDW 13.7 Plt Count 211 MPV 10.7 Immature Gran % (Auto) Neut % (Auto) Lymph % (Auto) [place] % (Auto) Eos % (Auto) Baso % (Auto) Lymph # (Auto) [place] # (Auto) Eos # (Auto) Baso # (Auto) Abs Immat Gran (auto) Absolute Neuts (auto) Absolute Nucleated RBC 0.000 Nucleated RBC % (auto) 0.0 Smear Tech's Comments PT INR APTT Sodium Potassium Chloride Carbon Dioxide Anion Gap BUN Creatinine Estim Creat Clear Calc Estimated GFR Random Glucose Lactic Acid Lactic Acid Fup @ 2Hr Lactic Acid Fup @ 4Hr Calcium Total Bilirubin AST ALT Alkaline Phosphatase Total Creatine Kinase Troponin I High Sens 164.5 H* D B-Natriuretic Peptide Total Protein Albumin Lipase TSH Beta HCG, Quant Urine Color Urine Appearance Urine pH Ur Specific [place] Urine Protein Urine Glucose (UA) Urine Ketones Urine Blood Urine Nitrite Ur Leukocyte Esterase Urine RBC Urine WBC Ur Squamous Epith Cells Urine Bacteria Granular Casts Urine Mucus Salicylates Urine Opiates Screen Acetaminophen Ur Barbiturates Screen Ur Phencyclidine Scrn Ur Amphetamines Screen U Benzodiazepines Scrn Urine Cocaine Screen U Marijuana (THC) Screen Ethyl Alcohol COVID-19 (ADALI) COVID-19 Clin Com Imaging Radiology Impressions: ITS Impressions Chest X-Ray 01/15/21 08:00 IMPRESSION: Unremarkable examination. Head CT 01/15/21 08:00 IMPRESSION: Normal study. Ankle X-Ray 01/15/21 23:10 IMPRESSION: No acute injury seen. Chest X-Ray 01/16/21 10:31 IMPRESSION: Interval development of bilateral lower lobe disease with question small effusions. Medications Medications Current Medications Generic Name Dose Route Start Last Admin Trade Name Freq PRN Reason Stop Dose Admin Acetaminophen 650 mg 01/15/21 13:27 01/15/21 21:56 Acetaminophen 325 Mg Tablet PO 650 mg Q6H PRN Administration Pain, Mild (Pain Scale 1-3) Buprenorphine/Naloxone 1 film 01/16/21 10:30 01/16/21 10:22 Buprenorphine/Naloxone 4/1 Mg Film SUBLINGUAL 1 film BID IRISH Administration Enoxaparin Sodium 55 mg 01/16/21 11:00 01/16/21 11:56 Enoxaparin Sodium 60 Mg/0.6 Ml Syringe 1 mg/kg (55 mg) 55 mg SUBCUT Administration Q12H [facility] Dextrose/Sodium Chloride 1,000 mls @ 100 mls/hr 01/15/21 13:30 01/16/21 12:27 D5ns IVCONT Infused .Q10H [facility] Infusion Magnesium Hydroxide 30 ml 01/16/21 14:15 01/16/21 14:57 Milk Of Magnesia 30 Ml Oral.Susp PO 30 ml DAILY PRN Administration Constipation Melatonin 3 mg 01/15/21 13:27 Melatonin 3 Mg Tablet PO BEDTIME PRN Insomnia Nicotine Polacrilex 4 mg 01/16/21 10:07 01/16/21 12:49 Nicotine Polacrilex Lozenge 4 Mg Lozenge BUCCAL 4 mg Q1H PRN Administration Nicotine Cravings Polyethylene Glycol 17 gm 01/16/21 14:16 Polyethylene Glycol 3350 17 Gm Powd.Pack PO DAILY PRN Constipation Sodium Chloride 3 ml 01/15/21 16:00 01/16/21 07:33 0.9 % Sodium Chloride Flush 3 Ml Syringe IVFLUSH Not Given QSHIFT [facility] Allergies Allergies Allergy/AdvReac Type Severity Reaction Status Date / Time No Known Allergies Allergy Verified 01/15/21 07:59 Assessment & Plan Assessment & Plan (1) Opioid use disorder: Status: Acute Code(s): F11.99 - Opioid use, unspecified with unspecified opioid-induced disorder Assessment and Plan: start suboxone 4mg BID Nicotine lozenges to address nicotine cravings as reported by patient Discussed case with hospitalist and RS RN. Patient already established with [facility] in [place] for outpatient BRYCE tx Will need a bridge script (dose can be increased if patient requests it--previously on 12mg QD take home narcan ordered Patient agreeable to starting Sertraline to address depressive sx. Discussed dosing times, side effects and goals of tx Encouraged to engage in additional recovery oriented services and supports 35 minutes with patient and coordinating care Greater than 50% of the session was spent on counseling and/or coordination of care
[2021-01-16 15:18] VITALS: BP 109/70; PULSE 93; RESP 18; TEMP 36.7; O2SAT 93
--- NOTE | 2021-01-16 16:18 | CA_ITS ---
Transthoracic Echocardiogram Patient (Last, First, Middle): Miley Galan Amador Gender: Female Date of : 1995 Age: 25 Procedure Date: 01/16/2021 Procedure Type: Transthoracic Echocardiogram [place] 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 The visually estimated ejection fraction is between 50-55%. - No obvious valvular pathology seen on this study. Findings Left Ventricle Normal left ventricular cavity size. There is normal left ventricular wall thickness. The left ventricular systolic function is low normal. The visually estimated ejection fraction is between 50-55%. There is no evidence of regional wall motion abnormalities. Diastolic function is normal for age. Right Ventricle Normal right ventricular cavity size. There is low normal right ventricular systolic function. TAPSE 1.76cm. Atria Both atria are normal in size. Aortic Valve There is a normal trileaflet aortic valve. There is no aortic valve stenosis. There is no aortic valve regurgitation. Mitral Valve The mitral valve appears normal. There is trace mitral valve regurgitation. There is no mitral valve stenosis. Pulmonic Valve The pulmonic valve was not well visualized. Tricuspid Valve Normal tricuspid valve structure. There is mild tricuspid valve regurgitation. The pulmonary artery systolic pressure is normal. Great Vessels The aortic annulus, sinuses of valsalva, and asc aorta are normal in size. Venous The inferior vena cava is normal in size and collapses less than 50% with inspiration. Pericardium/Pleural There is no evidence of pericardial effusion. Prior Study Comparison No prior study available for comparison. Recommendations, Care & Conclusions No obvious valvular pathology seen on this study. Measurements 2D Linear Measurements IVSd: 0.69 0.6-0.9/0.6-1.0 cm LVIDd: 4.66 3.9-5.3/4.2-5.9 cm LVIDd Index: 3.01 2.4-3.2/2.2-3.1 cm/m2 LVIDs: 3.41 2.0-3.6 cm LVPWd: 0.82 0.7-1.1 cm Ao Root: 2.70 2.1-3.5 cm LA Diam: 3.00 2.7-3.8/3.0-4.0 cm LAIDs Index: 1.94 1.5-2.3 cm/m2 LV Mass: 138.33 67-162/88-224 g LV Mass Index: 89.24 43-95/49-115 g/m2 LVOT Diam: 2.00 3.0+(-)1.3 cm 2D Systolic Function EF 4C: 38.30 >55% EF 2C: 41.90 >55% EF BiP: 40.80 >55% Mitral Valve MV Pk E: 0.64 MV PK A: 0.59 MV Decel Time: 151.00 E/A: 1.10 E'Lateral: 12.30 E'Medial: 12.30 E/E' Med: 5.20 E/E' Lat: 5.20 PHT: 44.00 MVA PHT: 5.00 Decel [place]: 4.23 Aortic Valve AoV Pk Rajat: 1.02 AoV Mn Rajat: 0.72 AoV VTI: 0.21 AoV Pk Grad: 4.00 Aov Mn Grad: 2.00 KELSIE Cont.VTI: 2.15 LVOT LVOT Pk Rajat: 0.82 LVOT Mn Rajat: 0.54 LVOT VTI: 0.14 LVOT Pk Grad: 3.00 LVOT Mn Grad: 1.00 LVOT Diam: 2.00 LVOT Area: 3.14 Diastolic Function MV Pk E: 0.64 MV Pk A: 0.59 E/A: 1.10 E'Medial: 12.30 E/E' Med: 5.20 E' Laterial: 12.30 E/E' Lat: 5.20 Right Ventricle TAPSE (mm): 1.76 TVS' Rajat: 11.10 Tricuspid Valve TR Pk Rajat: 2.39 TR Pk Grad: 23.00 Great Vessels Aorta Ao Root-2D: 2.70 2.0-3.7 cm Ao Asc: 2.60 2.1-3.4 cm Pulmonary Valve PV Pk Rajat: 1.64 Peak PV Grad: 11.00 Updated in Other Vendor System with Status of Final Chad Rees MD electronically signed on 01/16/2021 3:16:50 PM with status of Final
--- NOTE | 2021-01-16 16:59 | P.CNNE_ITS ---
History of Present Illness Data of Consult Service Date: 01/16/21 Primary Care Provider: Unknown Physician 25 years old woman I was asked to see for leg weakness. She said that her leg weakness or unsteadiness started few days ago and it was mostly left leg. There was no pain or paresthesias. There was no bowel bladder difficulty. There was no problem with arms. She had fallen 1 time. [facility] Family History Family history: reviewed and not pertinent Social History Social History Household Members: None Housing: Apartment Do you presently have visiting nurse or other home services: No Patient Tobacco Use Status: Current everyday Tobacco user Tobacco use type: Cigarette Cigarette Packs Per Day: 0.5 Cigarettes Per Day: 10.0 Substance Use Type: Heroin service: No Current occupational status: employed Meds Allergies Allergy/AdvReac Type Severity Reaction Status Date / Time No Known Allergies Allergy Verified 01/15/21 07:59 Active Medications: Current Medications Generic Name Dose Route Start Last Admin Trade Name Freq PRN Reason Stop Dose Admin Acetaminophen 650 mg 01/15/21 13:27 01/15/21 21:56 Acetaminophen 325 Mg Tablet PO 650 mg Q6H PRN Administration Pain, Mild (Pain Scale 1-3) Buprenorphine/Naloxone 1 film 01/16/21 10:30 01/16/21 10:22 Buprenorphine/Naloxone 4/1 Mg Film SUBLINGUAL 1 film BID IRISH Administration Enoxaparin Sodium 55 mg 01/16/21 11:00 01/16/21 11:56 Enoxaparin Sodium 60 Mg/0.6 Ml Syringe 1 mg/kg (55 mg) 55 mg SUBCUT Administration Q12H [facility] Dextrose/Sodium Chloride 1,000 mls @ 100 mls/hr 01/15/21 13:30 01/16/21 12:27 D5ns IVCONT Infused .Q10H [facility] Infusion Magnesium Hydroxide 30 ml 01/16/21 14:15 01/16/21 14:57 Milk Of Magnesia 30 Ml Oral.Susp PO 30 ml DAILY PRN Administration Constipation Melatonin 3 mg 01/15/21 13:27 Melatonin 3 Mg Tablet PO BEDTIME PRN Insomnia Nicotine Polacrilex 4 mg 01/16/21 10:07 01/16/21 12:49 Nicotine Polacrilex Lozenge 4 Mg Lozenge BUCCAL 4 mg Q1H PRN Administration Nicotine Cravings Polyethylene Glycol 17 gm 01/16/21 14:16 Polyethylene Glycol 3350 17 Gm Powd.Pack PO DAILY PRN Constipation Sertraline HCl 25 mg 01/16/21 21:00 Sertraline Hcl 25 Mg Tablet PO BEDTIME IRISH Sodium Chloride 3 ml 01/15/21 16:00 01/16/21 07:33 0.9 % Sodium Chloride Flush 3 Ml Syringe IVFLUSH Not Given QSHIFT [facility] Home Medications Medication Instructions Recorded Confirmed Last Taken Type zolpidem 10 mg tablet 1 tab PO BEDTIME 01/15/21 01/15/21 Unknown History Physical Exam Vital Signs: Vital Signs: Last Vital Signs Temp 98.1 F 01/16/21 15:18 Pulse 93 01/16/21 15:18 Resp 18 01/16/21 15:18 BP 109/70 01/16/21 15:18 Pulse Ox 93 01/16/21 15:18 Body Mass Index 22.4 She was alert and awake with normal spontaneity of speech fluency comprehension and anxious affect. Face was symmetrical. Visual garcia are full. There was no obvious focal arm or leg weakness except mild weakness of left extensor hallucis longus. Arm and knee reflexes were on the brisker side about 3+. Ankle reflexes were trace with flexor plantars. [id number] testing was normal. She was able to get up and walk with help of a cane or a walker. Speech was normal. Results Labs CBC & Chem 7: 01/16/21 04:24 01/16/21 04:20 Labs: Short CBC 01/16/21 Range/Units 04:24 WBC 18.4 H (4.8-10.8) X10*3/uL Hgb 11.3 L (12.0-16.0) g/dl Hct 35.2 L (37-47) % Plt Count 211 (160-400) X10*3/uL BMP 01/16/21 04:20 Sodium 140 Potassium 3.7 Chloride 109 H Carbon Dioxide 25 BUN 5 L Creatinine 0.76 Calcium 8.1 L Urine 01/15/21 Range/Units 18:57 Urine Color DARK YELLOW Urine Appearance CLOUDY Urine pH 6.0 (5.0-8.0) Ur Specific [place] >= 1.030 H (1.005-1.025) Urine Protein 2+ H (NEG-TRACE) MG/DL Urine Glucose (UA) 100 H (NEG) MG/DL a noncontrast head CT did not reveal any significant abnormality. Microbiology Microbiology Results: Microbiology 01/15/21 08:38 Blood - Venous Blood Culture - Preliminary No growth after 24 hours. 01/15/21 08:38 Blood - Venous Blood Culture - Preliminary No growth after 24 hours. 01/15/21 19:31 Urine clean catch - Urine benítez top Urine Culture - Preliminary No growth to date. Assessment and Plan (1) Leg weakness: Status: Acute Few days of left leg weakness after she fell. Examination revealed mild left extensor hallucis longus weakness. This might be peroneal neuropathy. Otherwise examination did reveal hyperreflexia but normal looking CT scan of brain. My recommendation is PT OT consultation for exercises for left leg. If her symptoms would worsen she should CS as an outpatient for further evaluation or maybe and EMG nerve conduction study. Procedures Date of Service Date of Service: 01/16/21
[2021-01-16 19:04] VITALS: BP 117/78; PULSE 93; RESP 18; TEMP 36.8; O2SAT 96
[2021-01-16] MEDS: Ketorolac Tromethamine 15 MG/ML VIAL IM (20:27)
[2021-01-16] MEDS: Sertraline HCL 25 MG TABLET PO (20:30)
[2021-01-16] MEDS: Zolpidem Tartrate 5 MG TABLET PO (21:32)
[2021-01-17] VITALS: BP 106/60; PULSE 90; RESP 18; TEMP 36.6; O2SAT 92
[2021-01-17] MEDS: 0.9 % Sodium Chloride Flush 3 ML SYRINGE IVFLUSH ×2 (00:15→09:04)
[2021-01-17] MEDS: Dextrose 5 % and 0.9 % NaCl 1,000 ML 100 ML IVCONT ×2 (00:15→09:10)
[2021-01-17] MEDS: Enoxaparin Sodium 60 MG/0.6 ML SYRINGE 55 MG SUBCUT (00:18)
[2021-01-17 03:04] VITALS: BP 128/62; PULSE 80; RESP 18; TEMP 36.1; O2SAT 92
[2021-01-17 06:51] VITALS: BP 109/67; PULSE 83; RESP 18; TEMP 36.8; O2SAT 90
[2021-01-17] MEDS: Buprenorphine/Naloxone 4/1 mg FILM 1 FILM SUBLINGUAL (09:03)
[2021-01-17 10:03] VITALS: BP 109/67; PULSE 83; O2SAT 90
--- NOTE | 2021-01-17 11:05 | PM.PNCARD ---
Subjective Subjective Date of Service: 01/17/21 Interval history: No specific cardiac symptoms. Review of Systems Review of Systems Yes all other systems are reviewed and are negative Cardiovascular: Reports as per HPI, Reports no additional cardiovascular complaints, Denies acrocyanosis, Denies cool extremities, Denies painful fingertips, Reports chest pain, Reports chest pain at rest, Denies diaphoresis, Denies syncope, Denies irregular heart rhythm, Denies claudication, Denies leg edema, Denies lightheadedness, Denies palpitations and Denies dyspnea Respiratory: Denies dyspnea Denies syncope Endocrine: Denies palpitations Physical Exam Vital Signs: Last Vital Signs Temp 98.2 F 01/17/21 06:51 Pulse 83 01/17/21 10:03 Resp 18 01/17/21 06:51 BP 109/67 01/17/21 10:03 Pulse Ox 90 L 01/17/21 10:03 Body Mass Index 22.4 Const General: cooperative and no acute distress HENMT Other: Unremarkable Neck Neck: Yes normal visual inspection Chest Chest palpation & inspection: normal inspection of the chest Resp Auscultation: clear to auscultation bilaterally, no crackles and no wheezes Cardio Jugular venous distension: no JVD Palpation: normal PMI Heart sounds: S1 normal heart sound present, S2 normal heart sound present, no gallops, no murmurs and no rubs GI Palpation (GI): Soft to palpation Back/Spine/Pelvis Other: unremarkable Skin General skin exam: no rashes or lesions noted Neuro Cranial nerves: Yes Other cranial nerve findings present Extrem General: Yes no clubbing, cyanosis or edema Psych Mental Status: other Results Labs and Meds Result diagrams: 01/16/21 04:24 01/16/21 04:20 Progress Note: A&P Assessment and plan (1) NSTEMI (non-ST elevated myocardial infarction): Status: Acute (2) Opiate overdose: Status: Acute Assessment and Plan: Labs show elevated high sensitivity troponins in the non ST elevation myocardial infarction range. Most likely all from respiratory arrest/hypoxia as she was unresponsive. Do not believe this is primary acute coronary syndrome. Echocardiogram with low-normal LVEF but otherwise unremarkable and there is no wall motion abnormality. She has been on Lovenox since yesterday morning. Otherwise, no specific therapy from cardiac. Discharge planning. Fall Risk Details Current Medications: Current Medications Generic Name Dose Route Start Last Admin Trade Name Freq PRN Reason Stop Dose Admin Acetaminophen 650 mg 01/15/21 13:27 01/15/21 21:56 Acetaminophen 325 Mg Tablet PO 650 mg Q6H PRN Administration Pain, Mild (Pain Scale 1-3) Buprenorphine/Naloxone 1 film 01/16/21 10:30 01/17/21 09:03 Buprenorphine/Naloxone 4/1 Mg Film SUBLINGUAL 1 film BID IRISH Administration Enoxaparin Sodium 55 mg 01/16/21 11:00 01/17/21 00:18 Enoxaparin Sodium 60 Mg/0.6 Ml Syringe 1 mg/kg (55 mg) 55 mg SUBCUT Administration Q12H IRISH Dextrose/Sodium Chloride 1,000 mls @ 100 mls/hr 01/15/21 13:30 01/17/21 09:10 D5ns IVCONT 100 mls/hr .Q10H IRISH Administration Magnesium Hydroxide 30 ml 01/16/21 14:15 01/16/21 14:57 Milk Of Magnesia 30 Ml Oral.Susp PO 30 ml DAILY PRN Administration Constipation Melatonin 3 mg 01/15/21 13:27 Melatonin 3 Mg Tablet PO BEDTIME PRN Insomnia Nicotine Polacrilex 4 mg 01/16/21 10:07 01/16/21 12:49 Nicotine Polacrilex Lozenge 4 Mg Lozenge BUCCAL 4 mg Q1H PRN Administration Nicotine Cravings Polyethylene Glycol 17 gm 01/16/21 14:16 Polyethylene Glycol 3350 17 Gm Powd.Pack PO DAILY PRN Constipation Sertraline HCl 25 mg 01/16/21 21:00 01/16/21 20:30 Sertraline Hcl 25 Mg Tablet PO 25 mg BEDTIME IRISH Administration Sodium Chloride 3 ml 01/15/21 16:00 01/17/21 09:04 0.9 % Sodium Chloride Flush 3 Ml Syringe IVFLUSH 3 ml QSHIFT IRISH Administration Zolpidem Tartrate 5 mg 01/16/21 20:00 01/16/21 21:32 Zolpidem Tartrate 5 Mg Tablet PO 5 mg BEDTIME PRN Administration Insomnia Time Spent With Patient Time: Total time spent is greater than 50% in coordination of care (as documented) at patient's floor/unit and/or counseling patient: Time with patient: less than 15 minutes Progress Note: Quality Stroke Does the patient have a stroke diagnosis?: No Procedures Date of Service Date of Service: 01/17/21
--- NOTE | 2021-01-17 11:30 | MHC.RECOVRN ---
T/w met with pt to f/u regarding Suboxone after d/c. Pt has appt at [facility] on 01/21 at 4:15pm. Pt will have bridge script sent to pharmacy. Discussed with Jackie Yee NP.
[2021-01-17 11:38] VITALS: BP 112/82; PULSE 80; RESP 20; TEMP 36.7; O2SAT 92
--- NOTE | 2021-01-17 12:08 | PM.DS ---
DS: Providers Provider Date of Service: 03/20/21 Date of admission: 01/15/21 13:27 Primary care physician: Unknown Physician Consults: 01/15/21 13:27 Addiction Medicine Routine Consulting Provider: Karely Murphy Reason for consultation: OVERDOSE Has provider been notified: No 01/15/21 16:18 Consult to Cardiology Routine Consulting Provider: Chad Rees Reason for consultation: Elevated Troponin Has provider been notified: No 01/16/21 08:59 Consult to Neurology Routine Consulting Provider: [facility] [place] [facility] Reason for consultation: Weakness in leg, ? compressive neuropathy Has provider been notified: No DS: Diagnosis Discharge Diagnosis (1) NSTEMI (non-ST elevated myocardial infarction): Status: Resolved (2) Opiate overdose: Status: Resolved DS: Summary Hospital Course Hospital Course: Chief Complaint: Heroin overdose and unresponsiveness 25 year female with opioid dependence found at home unresponsive by family and given intranasal narcan with no effect, subsequently given additional narcan by EMS and even more? in the ED and final? regaining consciousnes with spontaneous movement yet confused. Labs work work has reaveled WBC of 30K, lactic acid of 7, troponin I 600, there are no ECG changes. Has low grade fever, chest xray is negative for acute infiltrate, head CT is normal. When I saw the patient she was somnolent yet easily aroused and oriented to self, place and time and wanted food and gingerale and when asked why she she is here, simply says drugs . Denies suicide ideation Hospital course: She presented in state of overdose from heroin and was down for quite something and was given Narcan by family and EM and only became more responsive after higher doses of heroin in the ED. She was noted to have elevated lactic acid, elevatated troponin and marked elevation in WBC and thought to have aspirated. Over the course of hospitalization she has become fully lucid now with no aparent brain injury form overdose. She had elevated tropionin level thought to be type 2 mi from being down and hypoxia, she was treated with IV Lovenox, seen by cardiology had an echo which showed normal EF, no wall motion abnormalities and cardiology recommends no further intervention or treatment at this time. Possible aspiration pneumonia, she has no fever but WBC was very high, initial xray was unremarkable and subsequent xray shows bilaterial infitrate possibly due to pneumoniia, WBC is going downl, will treat with Augmentin for 5 days. Leg weakness, CT of head showed no stroke, seen by Neurologist and likely had compressive neuropathy, PT saw her and recommends home with family support about is better than prior day. For opioid dependence she was evaluated by addiction Service and will be prescribed subxone. She had BIB due to pre renal azotemia and resolved with IVF the next day. Final Diagnosis: heroin overdose Encephalopathy d/t heroin overdose BIB Lactic acidosis Compressive neuropathy Aspiration pneumonia Elevated troponin, type 2 CO Time Spent with Patient Time attestation: Total time spent providing and/or coordinating discharge services: Discharge coordination time: Greater than 30 minutes Quality: Stroke Does the patient have a stroke diagnosis?: No Physical Exam Vital Signs: Vital Signs: Last Vital Signs Temp 98.0 F 01/17/21 11:38 Pulse 80 01/17/21 11:38 Resp 20 01/17/21 11:38 BP 112/82 01/17/21 11:38 Pulse Ox 92 01/17/21 11:38 Body Mass Index 22.4 DS: Data Data Completed and Pending Labs on day of discharge: Preliminary micro results at discharge 01/15/21 08:38 Blood Culture - Preliminary Blood - Venous No growth after 48 hours. 01/15/21 08:38 Blood Culture - Preliminary Blood - Venous No growth after 48 hours. Discharge Plan Discharge Anticipated Discharge Date/Time: 01/17/21 12:00 Patient Disposition: Home, Self-Care Discharge Diagnosis: Heroin overdose, aspiration pneumonia, renal failure, Referrals: Physician,Unknown [Physician] - 1 Week Discharge Medications: New amoxicillin-pot clavulanate [Augmentin] 875-125 mg tablet 1 tab PO BID Qty: 9 RF: 0 buprenorphine-naloxone [Suboxone] 4-1 mg film 1 film sublingual BID 7 Days Qty: 14 RF: 0 fluoxetine 20 mg capsule 20 mg PO DAILY Qty: 30 RF: 0 Continued zolpidem 10 mg tablet 1 tab PO BEDTIME RF: 0 Discharge Orders: Discharge Order (Routine); Ordered 01/17/21 Ordered By: Mckinley Hinojosa Diet: advance to usual diet Activity on Discharge: As tolerated Stand Alone Forms: Patient Portal Discharge page, Work/School Release Care Plan Goals: compolete abstience from opioid use Health Concerns: Opiate dependence Plan of Treatment: To avoid opiate, follow-up with Addiction Clinic on outpatient basis Assessment: See above Discharge Date/Time: 01/17/21 13:10
--- NOTE | 2021-01-17 12:09 | MHC.CM.PN ---
Patient has been medically cleared for dc to home today, no services.
--- NOTE | 2021-01-17 12:22 | MHC.CM.PN ---
Per bar host/Rosario's request, CLAU assisted Patient in calling her Suboxone Clinic ([facility] in [place]); Patient has an appointment on 01/21/21 @ 4:15 PM. This information has been relayed to Rosario. CM asked Patient how she got the bruise over her (r) eye; Patient describes that she hit her face on the table when she fell. Patient expresses no fear about returning home.
--- NOTE | 2021-01-17 12:27 | MHC.CM.PN ---
CM relayed Patient's request for a letter from MD to excuse her from work for 2 days, to MD.
[2021-01-17 12:56] LABS: Hematocrit 37.8 % (37-47); Hemoglobin 12.3 g/dl (12.0-16.0); Mean Corpuscular HGB Conc 32.5 g/dl (31.0-35.0); Mean Corpuscular Hemoglobin 29.9 pg (27.0-33.0); Mean Corpuscular Volume 91.7 fL (80-98); Platelet Count 225 X10*3/uL (160-400); Red Blood Count 4.12 X10*6/uL (4.20-5.50); Red Cell Distribution Width 13.8 % (11.0-16.0); White Blood Count 9.4 X10*3/uL (4.8-10.8)
--- NOTE | 2021-01-17 13:25 | PM.EVENT ---
Event Note Date of Service: 01/17/21 Event Note: Script for suboxone 4mg-1mg SL, BID, 7 day supply (14 films total) sent to pharmacy upon discharge. Patient has appointment at outpatient suboxone clinic on 01/21/21 at 4:15pm
[2021-01-17] MEDS: Amoxicillin/Potassium Clav 875 MG TABLET PO (14:25)
== END 2021-01-17 13:10 | disposition home or self-care (01) | DRG 812 ==
LOC: HO.ED 12:14 → HO.EDOVER 14:19 → HO.IMC 23:30
PROVIDERS: Admitting Provider Internal Medicine; Emergency Provider Emergency Medicine Emergency Medical Services; PCP Internal Medicine Geriatric Medicine; Visit Provider Internal Medicine
DX: T40.601A Poisoning by unspecified narcotics, accidental (unintentional), initial encounter (principal); I21.A1 Myocardial infarction type 2; J69.0 Pneumonitis due to inhalation of food and vomit; G92 Toxic encephalopathy; D72.829 Elevated white blood cell count, unspecified; G62.9 Polyneuropathy, unspecified; E87.2 Acidosis; F17.210 Nicotine dependence, cigarettes, uncomplicated; Y92.9 Unspecified place or not applicable; Z20.822 Contact with and (suspected) exposure to COVID-19; Z71.6 Tobacco abuse counseling; Z79.899 Other long term (current) drug therapy
CPT/HCPCS: 36415; 70450; 71045; 71046; 73600; 80048; 80053; 80143; 80179; 80307; 81001; 82077; 82550; 83605; 83690; 83880; 84443; 84484; 84702; 85025; 85027; 85610; 85730; 87040; 87086; 87635; 93005; 93306; 97110; 97116; 97161; 99285; J0696; J1650; J1885; J3370

== ENCOUNTER 2022-02-10 00:44 | Emergency (ER) | payer MEDICAID, SELFPAY ==
[2022-02-10 01:05] VITALS: BP 120/76; PULSE 107; O2SAT 97
--- NOTE | 2022-02-10 01:32 | PC.NURSE ---
pT NOT PRESENT WHEN CALLED FOR TRIAGE.
--- NOTE | 2022-02-10 01:56 | PC.NURSE ---
PT CALLED SEVERAL TIMES FOR TRIAGE, REGISTRATION WITNESSED PATIENT LEAVE ER X2.
== END 2022-02-10 02:14 | disposition left against medical advice (07) ==
PROVIDERS: Emergency Provider Emergency Medicine
DX: M79.5 Residual foreign body in soft tissue (principal)

== ENCOUNTER 2022-02-10 03:32 | Emergency (ER) | payer MEDICAID, SELFPAY ==
--- NOTE | ~2022-02-10 | XR_ITS ---
EXAMINATION: XR FOREARM, LEFT XR FOREARM, RIGHT CLINICAL INFORMATION: Question needle from IV drug abuse. COMPARISON: None TECHNIQUE: 2 views of the left forearm. 2 views of the right forearm. FINDINGS: Left forearm: No fracture or cortical disruption. Appropriate alignment of the wrist and elbow. No radiopaque foreign body. Right forearm: No fracture or cortical disruption. Appropriate alignment of the wrist and elbow. No radiopaque foreign body. XR/XR forearm LT 2V IMPRESSION: No radiopaque foreign body in either forearm.
--- NOTE | ~2022-02-10 | XR_ITS ---
EXAMINATION: XR FOREARM, LEFT XR FOREARM, RIGHT CLINICAL INFORMATION: Question needle from IV drug abuse. COMPARISON: None TECHNIQUE: 2 views of the left forearm. 2 views of the right forearm. FINDINGS: Left forearm: No fracture or cortical disruption. Appropriate alignment of the wrist and elbow. No radiopaque foreign body. Right forearm: No fracture or cortical disruption. Appropriate alignment of the wrist and elbow. No radiopaque foreign body. XR/XR forearm RT 2V IMPRESSION: No radiopaque foreign body in either forearm.
[2022-02-10 03:38] VITALS: BP 118/76; PULSE 111; RESP 18; TEMP 36.8; O2SAT 93; BMI 21.7
--- NOTE | 2022-02-10 06:02 | ED.SKABFB ---
HPI - Skin/Abscess/Foreign Bdy General Chief complaint: General Medical Stated complaint: broken needle in arm Time Seen by Provider: 02/10/22 04:28 Source: patient Mode of arrival: ambulatory Limitations: no limitations History of Present Illness HPI narrative: worried she has a needle in her states she saw her needle break into 4 fragments complaint: foreign body and other Onset (ago): hour(s) (earlier today ) Location: LUE and RUE Severity: mild Quality: dull Pain Consistency: intermittent Relieving factors: none Exacerbating factors: palpation Context: IVDA Associated symptoms: denies other symptoms Treatments prior to arrival: none Related Data Previous Rx's Medication Instructions Recorded cephalexin 500 mg capsule 500 mg PO TID 7 days #21 caps 02/10/22 ibuprofen 600 mg tablet 600 mg PO Q6H PRN pain #30 tabs 02/10/22 Allergies Allergy/AdvReac Type Severity Reaction Status Date / Time No Known Allergies Allergy Verified 02/10/22 03:38 [No Known Allergies*] Review of Systems Review of Systems: Constitutional : No Fever, No Chills, Cardiovascular : No Chest Pain, No SOB Respiratory : No Dyspnea Gastrointestinal : No abdominal pain Musculoskeletal : No Joint Swelling Skin : No rash, positive skin lesions Neuro : No Weakness, No Numbness PMFSH Past Medical History Attestation statement: The following information was validated with the patient. Medical History No known health problems Opiate abuse, continuous Social History Social History (Updated 02/10/22 @ 06:10 by Lisa Godfrey DO) Patient Tobacco Use Status: Tobacco use Unknown Substance Use Type: Heroin Advance Directives: No Physical Exam Vital Signs: Vital Signs: Last Vital Signs Temp 98.2 F 02/10/22 03:38 Pulse 111 H 02/10/22 03:38 Resp 18 02/10/22 03:38 BP 118/76 02/10/22 03:38 Pulse Ox 93 02/10/22 03:38 O2 Del Method 02/10/22 03:38 BMI result Body Mass Index 21.7 Appearance: Alert. Oriented X3. No acute distress. Eyes: Pupils equal, round and reactive to light. ENT: Pharynx normal. Neck: Normal inspection. Neck supple. CVS: Pulses normal. Respiratory: No respiratory distress. Abdomen: atraumatic Skin: Skin warm and dry. Normal skin color. Normal skin turgor. Extremities: No lower extremity edema. track gaming in both ACs - no abscess seen no cellulitis no FB noted or felt, R forearm mild hematoma seen with mild erythema no warmth or fluctuance Neuro: Oriented X 3. No motor deficit. No sensory deficit. Course Course Course Narrative: declines opiate services, states she has narcan MDM - Skin/Abscess/Foreign Bdy MDM Narrative Medical decision making narrative: 26 yo female with hx of IVDA concerned a needle broke off in both her arms because when she used she saw it in 4 pieces L arm is normal appearing R forearm small red hematoma but no fluctuance signs of abscess or FB seen - xrays negative for FB and patient's story is unusual will start on cephalexin and ibuprofen Discharge Plan Discharge Clinical Impression: Hematoma, Opiate abuse, continuous Patient Disposition: Home, Self-Care Instructions: Hematoma (ED), Opioid Use Disorder (ED) Additional Instructions: return to ED for any worsening symptoms or concerns no needles seen on xray monitor for redness, swelling, fevers or other signs of infection Prescriptions: New cephalexin 500 mg capsule 500 mg PO TID 7 Days Qty: 21 0RF ibuprofen 600 mg tablet 600 mg PO Q6H PRN (Reason: pain) Qty: 30 0RF
[2022-02-10] MEDS: Ibuprofen 400 MG TABLET PO (06:32)
[2022-02-10] MEDS: cephALEXin 500 MG CAPSULE PO (06:32)
== END 2022-02-10 06:35 | disposition home or self-care (01) ==
PROVIDERS: Emergency Provider Emergency Medicine
DX: F11.10 Opioid abuse, uncomplicated (principal); S50.11XA Contusion of right forearm, initial encounter; X58.XXXA Exposure to other specified factors, initial encounter; Y93.9 Activity, unspecified; Y92.9 Unspecified place or not applicable; Y99.9 Unspecified external cause status
CPT/HCPCS: 73090; 99283

== ENCOUNTER 2022-12-27 20:30 | Emergency (ER) | payer MEDICAID, SELFPAY ==
[2022-12-27 20:44] VITALS: BP 105/74; BP 116/74; PULSE 63; PULSE 86; RESP 12; TEMP 37.1; O2SAT 96; BMI 16.3
--- NOTE | 2022-12-27 20:59 | ED.OVERDOSE ---
HPI - Overdose General Chief Complaint: Overdose Stated Complaint: OD Time Seen by Provider: 12/27/22 20:59 Source: patient Mode of arrival: ambulatory Limitations: no limitations History of Present Illness HPI Narrative: Patient with history of cocaine abuse used cocaine earlier felt slight palpitation got scared and used ?Narcan at this time patient does not feel any palpitation no chest wanted to go back to the room or go to detox does not want any help refused any labs Related Data Previous Rx's Medication Instructions Recorded cephalexin 500 mg capsule 500 mg PO TID 7 days #21 caps 02/10/22 ibuprofen 600 mg tablet 600 mg PO Q6H PRN pain #30 tabs 02/10/22 Allergies Allergy/AdvReac Type Severity Reaction Status Date / Time No Known Allergies Allergy Verified 02/10/22 03:38 [No Known Allergies*] Review of Systems Review of Systems: Yes all other systems are reviewed and are negative [facility] Past Medical History Medical History No known health problems Opiate abuse, continuous Social History Social History Patient Tobacco Use Status: Tobacco use Unknown Substance Use Type: Heroin Advance Directives: No Advance Directives Information Provided: Yes Physical Exam Vital Signs: Vital Signs: Last Vital Signs Temp 98.7 F 12/27/22 20:44 Pulse 86 12/27/22 20:44 Resp 12 12/27/22 20:44 BP 105/74 12/27/22 20:44 Pulse Ox 96 12/27/22 20:44 O2 Del Method Room Air 12/27/22 20:44 BMI result Body Mass Index 16.3 Appearance: Alert. Oriented X3. No acute distress. Eyes: PERRLA, No Nystagmus ENT: Pharynx normal. Oral Mucosa moist Neck: Normal inspection. Neck supple. CVS: Normal heart rate and rhythm. Pulses normal. Respiratory: No respiratory distress. Equal air entry bilateral, no wheezing/rales/rhonchi Abdomen: Soft and nontender. Bowel sounds are present, no mass palpable, no CVA tenderness Skin: Skin warm and dry. Normal skin color. Normal skin turgor. Extremities: No lower extremity edema. No calf tenderness Neuro: Oriented X 3. No motor deficit. No sensory deficit.No cerebellar signs , cranial nerves II-XII intact Medical Decision Making Medical Decision Making MDM Narrative: Patient likely with anxiety after using cocaine, vital stable, discharge patient refused any help Discharge Plan Discharge Clinical Impression: Cocaine intoxication Patient Disposition: Home, Self-Care Instructions: Cocaine Abuse (ED) Additional Instructions: Stop using cocaine Follow-up with detox/therapy Prescriptions: No Action cephalexin 500 mg capsule 500 mg PO TID 7 Days Qty: 21 0RF ibuprofen 600 mg tablet 600 mg PO Q6H PRN (Reason: pain) Qty: 30 0RF Interventions: ED Discharge Assessment Last Done: 12/27/22 21:11 Discharge Date/Time: 12/27/22 21:12
--- NOTE | 2022-12-27 21:01 | MHC.EDTECH ---
patient refused ekg ,provider aware .
== END 2022-12-27 21:12 | disposition home or self-care (01) ==
PROVIDERS: Emergency Provider Internal Medicine
DX: F14.120 Cocaine abuse with intoxication, uncomplicated (principal)
CPT/HCPCS: 99282

== ENCOUNTER 2023-02-17 15:23 | Emergency (ER) | payer MEDICAID, SELFPAY ==
[2023-02-17 15:29] VITALS: BP 111/73; BP 128/72; PULSE 113; PULSE 120; RESP 16; TEMP 36.8; O2SAT 100; BMI 21.7
--- NOTE | 2023-02-17 15:38 | ECG_ITS ---
Test Reason : SVT Blood Pressure : / mmHG Vent. Rate : 109 BPM Atrial Rate : 109 BPM P-R Int : 152 ms QRS Dur : 086 ms QT Int : 334 ms P-R-T Axes : 080 055 075 degrees QTc Int : 449 ms Sinus tachycardia Possible Left atrial enlargement Nonspecific T wave abnormality Abnormal ECG When compared with ECG of 28-FEB-2018 19:57, Nonspecific T wave abnormality now evident in Lateral leads Referred By: Generic ED Physician Electronically Signed By:NERI ROBLES
--- NOTE | 2023-02-17 15:54 | MHC.EDTECH ---
patient showed up via ambulance. upon arrival, patient stated that she feels better and just wants to leave. staff told the patient that the doctor and nurse will be aware of this. staff notified the nurse who asked staff to complete an EKG. After the EKG, tech notified the provider that this patient would like to leave. Another nurse put in blood work without knowing this information. staff is waiting for the provider to speak with the patient. The nurse for this patient is aware of this.
--- NOTE | 2023-02-17 15:57 | PC.NURSE ---
Patient came in tele: sinus rythym-sinus tachycardia 90-120's ekg done. Ekg given to Dr. Mills. Pateint already stated she doesn't want any blood work done.
--- NOTE | 2023-02-17 16:58 | ED_ITS ---
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 She reports that she went to walk her dog just prior to arrival and felt as if her heart rate was beating very fast she reports that she sat down and felt better however her friend who was with her call the ambulance the ambulance crew found her to be an SVT. Her heart rate was documented at approximately 150-160 beats per minute while in the ER her EKG shows sinus tachycardia with a rate of 109 patient reports that this has happened in the past. She states that she feels better and does not want to stay for any workup including blood work patient denies having had any chest pain Related Data Previous Rx's Medication Instructions Recorded cephalexin 500 mg capsule 500 mg PO TID 7 days #21 caps 02/10/22 ibuprofen 600 mg tablet 600 mg PO Q6H PRN pain #30 tabs 02/10/22 Allergies Allergy/AdvReac Type Severity Reaction Status Date / Time No Known Allergies Allergy Verified 02/10/22 03:38 [No Known Allergies*] Review of Systems Constitutional: Constitutional: Denies chills and Denies fever(s) Cardiovascular: Cardiovascular: Denies chest pain, Reports rapid heart rate and Denies dyspnea Respiratory: Respiratory: Denies cough and Denies dyspnea Gastrointestinal: Gastrointestinal: Denies abdominal pain, Denies nausea and Denies vomiting Musculoskeletal: Musculoskeletal: Denies back pain Neurologic: Denies focal weakness Psychiatric: Psychiatric: Denies panic attacks [facility] Past Medical History Medical History No known health problems Opiate abuse, continuous Social History Social History Patient Tobacco Use Status: Tobacco use Unknown Substance Use Type: Heroin Advance Directives: No Advance Directives Information Provided: Yes Physical Exam ED Vital Signs: Vital Signs - 24 hr 02/17/23 15:29 Temperature 98.3 F Pulse Rate 113 H Respiratory Rate 16 Blood Pressure 111/73 Pulse Oximetry 100 Oxygen Delivery Method Room Air BMI result Body Mass Index 21.7 Const General: healthy appearing, comfortable, no acute distress, alert and awake Nutritional Appearance: well nourished Orientation/consciousness: patient oriented x3 HENMT Head: Yes normocephalic and Yes atraumatic Eyes Eyelids: Yes eyelids normal Conjunctivae: conjunctivae normal Sclerae: sclerae normal Corneas: corneas normal Pupils: Equal, round and reactive pupils present EOM: EOMs intact bilaterally Neck Neck: Yes full ROM Resp Effort & Inspection: normal respiratory effort, able to speak in complete sentences and not labored Skin General skin exam: elasticity normal Neuro General: patient oriented x3 Cranial nerves: Yes Equal, round and reactive pupils present and Yes Bilaterally intact EOM present Cognition (Neuro): normal cognition Extrem Other: Moving all extremities well without any obvious deformities Course Reevaluation(s) Reevaluation #1: Medical Decision Making Medical Decision Making MDM Narrative: 27-year-old female presents for evaluation of palpitations. Her EKG was found to be sinus tachycardia GERD 109 beats per minute. However her pre-hospital rhythm strip shows a tachyarrhythmia between 150-160. I do see some P-waves, so I am not entirely convinced that was true SVT. could be a flutter with 2-1 conduction. The patient does not wish to stay for medical workup. She is now currently back in a sinus rhythm in the 80s. Of note the patient does have a history of cocaine abuse which may have been precipitated her tachyarrhythmia today. The patient will leave against medical advice. She understands the ris ks. She would like to follow-up with PCP by calling tomorrow and she was also given a referral to Cardiology Differential Diagnosis Differential Diagnoses: The differential diagnosis associated with the presentation includes SVT Tachyarrhythmia A flutter Sinus tachycardia Cocaine abuse Independent Interpretation I performed an independent interpretation of an: EKG ( sinus tachycardia rate of 109 beats per minute) and Rhythm Strip ( tachycardia with a rate between 150 and 160. P waves are present) Discharge Plan Discharge Clinical Impression: Tachyarrhythmia Patient Disposition: Left Against Medical Advice Instructions: Supraventricular Tachycardia (ED), Tachycardia (ED) Additional Instructions: the rhythm strips from EMS showed that you are in a tachyarrhythmia that was abnormal. while in the ER your heart rate normalized you refused blood work and workup and other for leaving against medical advice call your doctor 1st thing in the morning you should also follow up with Cardiology as reports this has happened in the past you may follow-up with Dr. Diaz Prescriptions: No Action cephalexin 500 mg capsule 500 mg PO TID 7 Days Qty: 21 0RF ibuprofen 600 mg tablet 600 mg PO Q6H PRN (Reason: pain) Qty: 30 0RF Referrals: Esequiel Diaz MD [Physician] - (? SVT) Stand Alone Forms: Against Medical Advice Interventions: ED Discharge Assessment Last Done: 02/17/23 17:19 Discharge Date/Time: 02/17/23 17:20
== END 2023-02-17 17:20 | disposition left against medical advice (07) ==
PROVIDERS: Emergency Provider Student in an Organized Health Care Education/Training Program; PCP Internal Medicine Geriatric Medicine
DX: I47.1 Supraventricular tachycardia (principal)
CPT/HCPCS: 93005; 99283

== ENCOUNTER 2023-03-05 22:08 | Emergency (ER) | payer MEDICAID, SELFPAY ==
--- NOTE | 2023-03-05 | ECG_ITS ---
Test Reason : chest pain Blood Pressure : / mmHG Vent. Rate : 068 BPM Atrial Rate : 068 BPM P-R Int : 154 ms QRS Dur : 084 ms QT Int : 412 ms P-R-T Axes : 078 063 067 degrees QTc Int : 438 ms Normal sinus rhythm Normal ECG When compared with ECG of 17-FEB-2023 15:40, Vent. rate has decreased BY 41 BPM Referred By: Generic ED Physician Electronically Signed By:NERI ROBLES
[2023-03-05 22:15] VITALS: BP 110/58; PULSE 71; RESP 16; TEMP 36.6; O2SAT 98; BMI 27.1
--- NOTE | 2023-03-05 23:29 | ED_ITS ---
HPI - Chest Pain General Chief Complaint: Chest Pain Stated Complaint: Fast HR after using Nasal [place]/ Chest Pain Time Seen by Provider: 03/05/23 23:04 Source: patient Mode of arrival: ambulatory Limitations: no limitations History of Present Illness HPI narrative: patient comes to the emergency room complaining of an episode of tachycardia after using her Afrin nasal spray. patient states that she inserted in her nostril a large amount of the medication, Admits that she did not read the directions prior to using it. Patient states that illness fragment minutes, when patient arrived to emergency room she already had no symptoms. patient denies any near-syncope/syncope , no chest pain or shortness of breath. Related Data Previous Rx's Medication Instructions Recorded cephalexin 500 mg capsule 500 mg PO TID 7 days #21 caps 02/10/22 ibuprofen 600 mg tablet 600 mg PO Q6H PRN pain #30 tabs 02/10/22 Allergies Allergy/AdvReac Type Severity Reaction Status Date / Time No Known Allergies Allergy Verified 03/05/23 22:15 [No Known Allergies*] Review of Systems Review of Systems: Constitutional : No Weight loss, No Fever, No Chills, No Night Sweats, No Fatigue, No Malaise ENT/Mouth : No Hearing loss, No Ear Pain, No Nasal Congestion, No Sinus Pain, No Hoarseness, No sore throat, No Rhinorrhea, No Swallowing Difficulty Eyes: No Eye Pain, No Swelling, No Redness, No Foreign Body, No Discharge, No Vision Changes Cardiovascular : No Chest Pain, No SOB, No Dyspnea on Exertion, No Orthopnea, No Edema, Complaining of Palpitations Respiratory : No Cough, No Sputum, No Wheezing, No Smoke Exposure, No Dyspnea Gastrointestinal : No Nausea, No Vomiting, No Diarrhea, No Constipation, No abdominal Pain, No Hematochezia, No Melena Genitourinary : no irregular bleeding, No Dysuria, No Urinary Frequency, No Hematuria, No Urinary Incontinence, No Urgency, No Flank Pain, No Urinary Flow Changes, No Hesitancy Musculoskeletal : No joint pain, No Myalgias, No Joint Swelling Skin : No Skin Lesions, No rash Neuro : No Weakness, No Numbness, No Paresthesias, No Loss of Consciousness, No Dizziness, No Headache Psych : No Anxiety/Panic, No Depression, No SI/HI/AH/VH, No Social Issues, Heme/Lymph: No Bruising, No Bleeding,No Lymphadenopathy Endocrine : No Polyuria, No Polydipsia, No Temperature Intolerance [facility] Past Medical History Medical History Opiate abuse, continuous No known health problems Social History Social History Patient Tobacco Use Status: Tobacco use Unknown Substance Use Type: Heroin Advance Directives: No Advance Directives Information Provided: Yes Physical Exam Vital Signs: Vital Signs: Last Vital Signs Temp 97.8 F 03/05/23 22:15 Pulse 71 03/05/23 22:15 Resp 16 03/05/23 22:15 BP 110/58 L 03/05/23 22:15 Pulse Ox 98 03/05/23 22:15 O2 Del Method Room Air 03/05/23 22:15 BMI result Body Mass Index 27.1 Const: Other: Appearance: Alert. Oriented X3. No acute distress. Eyes: Pupils equal, round and reactive to light. ENT: Pharynx normal. Neck: Normal inspection. Neck supple. No lymph nodes noted. No crepitus CVS: Normal heart rate and rhythm. Pulses normal. Normal S1 and S2 Respiratory: No respiratory distress. Breath sounds normal. No Wheezing. No rales Abdomen: Soft and nontender. No rigidity. No distention. Skin: Skin warm and dry. Normal skin color. Normal skin turgor. Extremities: No lower extremity edema. No Lacerations. No Rash Neuro: Oriented X 3. No motor deficit. No sensory deficit. Moving all extremities. No slurred speech. CN 2 through 12 grossly intact Psych: calm, cooperative, normal affect Medical Decision Making Medical Decision Making [facility] Narrative: - patient completely asymptomatic since arrival, no chest pain, no shortness of breath - my interpretation EKG: Normal sinus rhythm, heart rate 68, no ST segment depression or elevation, no T-wave inversion, acute 38 Differential Diagnosis Differential Diagnoses: The differential diagnosis associated with the presentation includes ( accidental medication overdose, substance abuse, sinus tachycardia) Discharge Plan Discharge Clinical Impression: Medication side effect, Palpitations Patient Disposition: Home, Self-Care Instructions: Heart Palpitations (ED) Prescriptions: No Action cephalexin 500 mg capsule 500 mg PO TID 7 Days Qty: 21 0RF ibuprofen 600 mg tablet 600 mg PO Q6H PRN (Reason: pain) Qty: 30 0RF
[2023-03-05 23:36] VITALS: BP 103/67; PULSE 57; RESP 20; O2SAT 99
== END 2023-03-05 23:39 | disposition home or self-care (01) ==
PROVIDERS: Emergency Provider Emergency Medicine; PCP Internal Medicine Geriatric Medicine
DX: R00.2 Palpitations (principal); T48.5X5A Adverse effect of other anti-common-cold drugs, initial encounter; Y92.9 Unspecified place or not applicable
CPT/HCPCS: 93005; 99283; 99285

== ENCOUNTER 2023-03-06 01:05 | Emergency (ER) | payer MEDICAID, SELFPAY ==
--- NOTE | 2023-03-06 | ECG_ITS ---
Test Reason : chest pain Blood Pressure : / mmHG Vent. Rate : 074 BPM Atrial Rate : 074 BPM P-R Int : 148 ms QRS Dur : 086 ms QT Int : 400 ms P-R-T Axes : 066 064 078 degrees QTc Int : 444 ms Normal sinus rhythm with sinus arrhythmia Normal ECG When compared with ECG of 05-MAR-2023 22:21, No significant change was found Referred By: Generic ED Physician Electronically Signed By:NERI ROBLES
[2023-03-06 01:14] VITALS: BP 110/72; PULSE 62; RESP 16; TEMP 36.7; BMI 18.6
[2023-03-06 01:36] VITALS: O2SAT 100
[2023-03-06 01:45] LABS: Alanine Aminotransferase 9 U/L (0-31); Albumin Level 4.4 g/dL (3.5-5.0); Alkaline Phosphatase 50 U/L (39-117); Anion Gap 11 (12-20); Aspartate Amino Transferase 15 U/L (5-31); Bilirubin Total 0.3 mg/dL (0.0-1.0); Blood Urea Nitrogen 12 mg/dL (9-16); Calcium 9.5 mg/dL (8.4-10.2); Carbon Dioxide 28 mmol/L (22-29); Chloride 104 mmol/L (96-108); Creatinine Clr Calc Pharmacy 87.4; Estimated Glomerular Filt Rate > 60; Glucose Random 94 mg/dL (60-115); Potassium 3.4 mmol/L (3.3-5.1); Sodium 140 mmol/L (135-145); Total Protein 7.8 g/dL (6.5-8.0)
[2023-03-06 01:46] LABS: Hematocrit 41.4 % (37.0-47.0); Hemoglobin 13.4 g/dl (12.0-16.0); Mean Corpuscular HGB Conc 32.4 g/dl (31.0-35.0); Mean Corpuscular Volume 89.6 fL (80.0-98.0); Mean Platelet Volume 9.7 fL (9.4-12.3); Platelet Count 228 X10*3/uL (160-400); Red Blood Count 4.62 X10*6/uL (4.20-5.50); Red Cell Distribution Width 13.5 % (11.0-16.0); White Blood Count 11.2 X10*3/uL (4.8-10.8)
[2023-03-06 01:51] LABS: Troponin-I High Sensitivity < 2.7 ng/L (<3.5-17.0)
--- NOTE | 2023-03-06 01:57 | ED_ITS ---
HPI - Chest Pain General Chief Complaint: Chest Pain Stated Complaint: Chest pain Time Seen by Provider: 03/06/23 01:57 Source: patient Mode of arrival: ambulatory Limitations: no limitations History of Present Illness HPI narrative: Patient's history of substance abuse take heroin took Afrin spray at 21:00 came here with palpitation last time discharge about 2 hours ago went home had snorted heroin again and felt palpitation which lasted by the time patient came to the ER while in the ER patient heart rate in 60s no syncope no dizziness no chest pain Related Data Previous Rx's Medication Instructions Recorded cephalexin 500 mg capsule 500 mg PO TID 7 days #21 caps 02/10/22 ibuprofen 600 mg tablet 600 mg PO Q6H PRN pain #30 tabs 02/10/22 Allergies Allergy/AdvReac Type Severity Reaction Status Date / Time No Known Allergies Allergy Verified 03/05/23 22:15 [No Known Allergies*] Review of Systems 2 Review of Systems: Yes all other systems are reviewed and are negative PMFSH Past Medical History Medical History Opiate abuse, continuous No known health problems Social History Social History Patient Tobacco Use Status: Tobacco use Unknown Use of substances other than those prescribed or required for medical reasons: Yes Substance Use Type: Heroin Substance Use Frequency: Occasionally Last Used Substance: Just Prior to Admission Any prior treatment program specific to substance use: No Advance Directives: No Advance Directives Information Provided: Yes Physical Exam 2 Vital Signs: Vital Signs: Last Vital Signs Temp 98.0 F 03/06/23 01:14 Pulse 62 03/06/23 01:14 Resp 16 03/06/23 01:14 BP 110/72 03/06/23 01:14 Pulse Ox 100 03/06/23 01:36 O2 Del Method Room Air 03/06/23 01:36 BMI result Body Mass Index 18.6 Appearance: Alert. Oriented X3. No acute distress. Eyes: PERRLA, No Nystagmus ENT: Pharynx normal. Oral Mucosa moist Neck: Normal inspection. Neck supple. CVS: Normal heart rate and rhythm. Pulses normal. Respiratory: No respiratory distress. Equal air entry bilateral, no wheezing/rales/rhonchi Abdomen: Soft and nontender. Bowel sounds are present, no mass palpable, no CVA tenderness Skin: Skin warm and dry. Normal skin color. Normal skin turgor. Extremities: No lower extremity edema. No calf tenderness Neuro: Oriented X 3. No motor deficit. No sensory deficit.No cerebellar signs , cranial nerves II-XII intact Medical Decision Making Medical Decision Making [facility] Narrative: Cardiac monitoring showing normal sinus rhythm workup negative for any acute ischemia will discharge patient home advised to follow with PCP do not use any Afrin as its effect will stay in the ED for 12 hours at least Lab Data [facility] Lab Attestation statement: I reviewed the patient's lab results. 03/06/23 01:24 03/06/23 01:24 Labs: Lab Results 03/06/23 Range/Units 01:24 WBC 11.2 H (4.8-10.8) X10*3/uL RBC 4.62 (4.20-5.50) X10*6/uL Hgb 13.4 (12.0-16.0) g/dl Hct 41.4 (37.0-47.0) % MCV 89.6 (80.0-98.0) fL MCH 29.0 (27.0-33.0) pg MCHC 32.4 (31.0-35.0) g/dl RDW 13.5 (11.0-16.0) % Plt Count 228 (160-400) X10*3/uL MPV 9.7 (9.4-12.3) fL Absolute Nucleated RBC 0.000 (0.0-0.012) X10*3/uL Nucleated RBC % (auto) 0.0 (0.0-0.2) /100WBC Sodium 140 (135-145) mmol/L Potassium 3.4 (3.3-5.1) mmol/L Chloride 104 (96-108) mmol/L Carbon Dioxide 28 (22-29) mmol/L Anion Gap 11 L (12-20) BUN 12 (9-16) mg/dL Creatinine 0.72 (0.5-1.4) mg/dL Estim Creat Clear Calc 87.4 Estimated GFR > 60 Random Glucose 94 (60-115) mg/dL Calcium 9.5 (8.4-10.2) mg/dL Total Bilirubin 0.3 (0.0-1.0) mg/dL AST 15 (5-31) U/L ALT 9 (0-31) U/L Alkaline Phosphatase 50 (39-117) U/L Troponin I High Sens < 2.7 (<3.5-17.0) ng/L Total Protein 7.8 (6.5-8.0) g/dL Albumin 4.4 (3.5-5.0) g/dL Independent Interpretation I performed an independent interpretation of an: EKG Interpretation: Normal sinus rhythm with heart rate of 74 beats per minute normal interval normal axis no acute ST-T change Discharge Plan Discharge Clinical Impression: Heart palpitations Patient Disposition: Home, Self-Care Instructions: Heart Palpitations (ED) Additional Instructions: Stop using drugs Stop taking any stimulants Follow with PCP if recurrence of episodes while not taking the drug Prescriptions: No Action cephalexin 500 mg capsule 500 mg PO TID 7 Days Qty: 21 0RF ibuprofen 600 mg tablet 600 mg PO Q6H PRN (Reason: pain) Qty: 30 0RF
== END 2023-03-06 02:22 | disposition home or self-care (01) ==
PROVIDERS: Emergency Provider Internal Medicine; PCP Internal Medicine Geriatric Medicine
DX: R00.2 Palpitations (principal); F11.10 Opioid abuse, uncomplicated; Z79.899 Other long term (current) drug therapy
CPT/HCPCS: 36415; 80053; 84484; 85027; 93005; 99283; 99285

== ENCOUNTER 2023-03-06 11:17 | Emergency (ER) | payer MEDICAID, SELFPAY ==
--- NOTE | ~2023-03-06 | XR_ITS ---
EXAMINATION: XR CHEST CLINICAL INFORMATION: Chest pain. Shortness of breath. COMPARISON: 03/04/2018 and 12/12/2016 TECHNIQUE: 2 views of the chest were obtained. FINDINGS: The lungs are well expanded. No focal consolidation. No pleural effusion. Cardiac silhouette is within normal limits. XR/XR chest 2V IMPRESSION: No acute abnormality.
--- NOTE | 2023-03-06 11:20 | ECG_ITS ---
Test Reason : cp Blood Pressure : / mmHG Vent. Rate : 080 BPM Atrial Rate : 080 BPM P-R Int : 128 ms QRS Dur : 086 ms QT Int : 384 ms P-R-T Axes : 002 065 055 degrees QTc Int : 442 ms Normal sinus rhythm Normal ECG When compared with ECG of 06-MAR-2023 01:10, No significant change was found Referred By: Generic ED Physician Electronically Signed By:NERI ROBLES
[2023-03-06 11:47] VITALS: BP 104/68; PULSE 76; RESP 16; TEMP 36.8; O2SAT 97; BMI 20.4
--- NOTE | 2023-03-06 11:48 | ED_ITS ---
HPI - General Adult General Chief complaint: Chest Pain Stated complaint: chest pain/ seen 03/05 Time Seen by Provider: 03/06/23 14:32 Source: patient Mode of arrival: ambulatory Limitations: no limitations History of Present Illness HPI narrative: 27-year-old female presents to ED for left-sided chest pain she states been occurring for 2 days in a row. Patient denies any recent trauma, recent long travel, recent surgery. Patient denies any control use. Patient does states left-sided pleurisy. Patient denies any URI symptoms patient was seen Yesterday for similar symptoms Related Data Previous Rx's Medication Instructions Recorded cephalexin 500 mg capsule 500 mg PO TID 7 days #21 caps 02/10/22 ibuprofen 600 mg tablet 600 mg PO Q6H PRN pain #30 tabs 02/10/22 Allergies Allergy/AdvReac Type Severity Reaction Status Date / Time No Known Allergies Allergy Verified 03/05/23 22:15 [No Known Allergies*] Review of Systems 2 Review of Systems: left-sided chest pain Yes all other systems are reviewed and are negative [facility] Past Medical History Medical History Opiate abuse, continuous No known health problems Social History Social History Patient Tobacco Use Status: Tobacco use Unknown Substance Use Type: Heroin Advance Directives: No Advance Directives Information Provided: Yes Physical Exam ED Vital Signs: Vital Signs - 24 hr 03/06/23 11:47 Temperature 98.2 F Pulse Rate 76 Respiratory Rate 16 Blood Pressure 104/68 Pulse Oximetry 97 Oxygen Delivery Method Room Air BMI result Body Mass Index 20.4 Const General: cooperative, healthy appearing, comfortable, no acute distress, well developed, alert, awake and Physically active Orientation/consciousness: oriented to person, oriented to place, oriented to time and patient oriented x3 HENMT Head: Yes normal to inspection, Yes No palpable skull fracture present, Yes normocephalic and Yes atraumatic Eyes General: appearance normal, both eyes and all related structures Neck Neck: Yes normal visual inspection, Yes full ROM, Yes no lymphadenopathy, Yes no meningeal signs, Yes trachea midline, Yes supple, No anterior neck swelling and No tender Chest Chest palpation & inspection: normal inspection of the chest Chest/axillae images: 2 1. positive for tenderness on palpation. Negative crepitus, ecchymosis, or rash. Resp Effort & Inspection: normal respiratory effort and able to speak in complete sentences Auscultation: clear to auscultation bilaterally Cardio Jugular venous distension: no JVD Heart sounds: S1 normal heart sound present and S2 normal heart sound present GI Inspection: Yes normal to inspection and No abdominal wall ecchymosis Palpation (GI): Soft to palpation, not firm, nontender, no guarding and not rigid General: No CVA tenderness and Yes no CVA tenderness Back/Spine/Pelvis Back: no CVA tenderness, No CVA tenderness and No back tenderness Skin General skin exam: no rashes or lesions noted, elasticity normal and turgor normal Neuro General: oriented to person, oriented to place, oriented to time, patient oriented x3, gait normal, tone normal, moves all extremities, Normal light touch and pain sensation, no meningeal signs, no focal motor deficits, CN's II-XI intact bilaterally and normal sensation to monofilament Extrem Other: Bilateral lower extremity negative for swelling, pitting edema, or calf tenderness. General: Yes normal to inspection and Yes full ROM Psych Appearance: grossly normal, well kempt and not disheveled Course Course Course Narrative: Patient is a 27-year-old female presenting to the emergency department with complaint of chest pain since yesterday after using Afrin. Was evaluated in this ED yesterday and discharged home but states pain has persisted, is constant. Has not taken any OTC medications for her symptoms, has not used Afrin again since initial symptoms. Denies cough but reports shortness of breath. Denies history of asthma. Plan: EKG, CXR, labs Medical Decision Making Medical Decision Making MDM Narrative: 27-year-old female presents to ED for left-sided chest pain after taking Afrin for the past 2 days. Patient states slight pleurisy. Patient denies any leg swelling, calf pain, coughing up blood, recent long travel, recent surgery, fever, or chills. Patient denies any recent trauma. Patient denies any recent drug use. Patient has had 2 troponins in 24 hours that were negative. D-dimer negative. Perc score is 0. X-ray negative for pneumonia signs of heart failure, or fluid overload. Labs are normal. Patient is safe for discharge. Patient positive for chest wall tenderness on palpation. EKG negative STEMI Differential Diagnosis Differential Diagnoses: The differential diagnosis associated with the presentation includes ( myocardial infarction, PE, anxiety, pneumonia, heart failure) Admission/Observation Consideration of admission/observation: Escalation of care including admission/observation considered Lab Data MDM Lab Attestation statement: I reviewed the patient's lab results. 03/06/23 13:52 03/06/23 13:52 Labs: Lab Results 03/06/23 03/06/23 Range/Units 13:52 15:19 WBC 11.5 H (4.8-10.8) X10*3/uL RBC 4.70 (4.20-5.50) X10*6/uL Hgb 13.9 (12.0-16.0) g/dl Hct 42.3 (37.0-47.0) % MCV 90.0 (80.0-98.0) fL MCH 29.6 (27.0-33.0) pg MCHC 32.9 (31.0-35.0) g/dl RDW 13.4 (11.0-16.0) % Plt Count 262 (160-400) X10*3/uL MPV 10.0 (9.4-12.3) fL Immature Gran % (Auto) 0.3 (0.0-0.4) % Neut % (Auto) 78.2 H (45-73) % Lymph % (Auto) 18.1 L (20-40) % [place] % (Auto) 2.8 (2-11) % Eos % (Auto) 0.2 (0-4) % Baso % (Auto) 0.4 (0-2) % Lymph # (Auto) 2.1 (1.2-4.9) X10*3/uL [place] # (Auto) 0.3 (0.1-1.2) X10*3/uL Eos # (Auto) 0.0 (0.0-0.4) X10*3/uL Baso # (Auto) 0.1 (0.0-0.2) X10*3/uL Abs Immat Gran (auto) 0.04 H (0.00-0.03) X10*3/uL Absolute Neuts (auto) 9.0 H (2.0-8.3) x10*3/uL Absolute Nucleated RBC 0.000 (0.0-0.012) X10*3/uL Nucleated RBC % (auto) 0.0 (0.0-0.2) /100WBC PT 13.7 H (11.1-13.3) SEC INR 1.1 (0.9-1.1) APTT 35.3 (26.0-36.4) SEC D-Dimer High Sensitivty < 150 NG/ML Sodium 139 (135-145) mmol/L Potassium 3.9 (3.3-5.1) mmol/L Chloride 106 (96-108) mmol/L Carbon Dioxide 26 (22-29) mmol/L Anion Gap 11 L (12-20) BUN 7 L (9-16) mg/dL Creatinine 0.65 (0.5-1.4) mg/dL Estim Creat Clear Calc 106.1 Estimated GFR > 60 Random Glucose 100 (60-115) mg/dL Calcium 9.5 (8.4-10.2) mg/dL Troponin I High Sens < 2.7 (<3.5-17.0) ng/L Independent Interpretation I performed an independent interpretation of an: EKG ( normal sinus rhythm. reticular rate 80. WA interval 128. QRS 86. QTC 442. Negative STEMI) Radiology Impression Discussion of test interpretation with radiology: I have reviewed the radiologist's reading. Independent Historian Clinical information obtained from an independent historian. History obtained from or confirmed by: Spouse External Record Review External record reviewed: Other (PRior ED Visit) Prescription Management I considered prescription management with: Pain Medication Discharge Plan Discharge Clinical Impression: Chest pain Patient Disposition: Home, Self-Care Instructions: Chest Pain (ED), Chest Wall Pain (ED) Additional Instructions: please follow-up with your primary care provider. Return to the ED immediately for any worsening chest pain, coughing up blood, chest pain on inspiration, leg swelling, calf pain, dizziness, weakness, passing out, or any other concerning symptoms. [id number] Motrin/ Tylenol can be used for pain relief. Prescriptions: No Action cephalexin 500 mg capsule 500 mg PO TID 7 Days Qty: 21 0RF ibuprofen 600 mg tablet 600 mg PO Q6H PRN (Reason: pain) Qty: 30 0RF Interventions: ED Discharge Assessment Last Done: 03/06/23 16:12 Discharge Date/Time: 03/06/23 16:13 Print Language: Palauan
[2023-03-06 13:58] LABS: MANUAL DIFF FLAG NO
[2023-03-06 14:13] LABS: Basophils Absolute Auto 0.1 X10*3/uL (0.0-0.2); Basophils Percent Auto 0.4 % (0-2); Eosinophils Percent Auto 0.2 % (0-4); Hematocrit 42.3 % (37.0-47.0); Hemoglobin 13.9 g/dl (12.0-16.0); Imm Gran Abs Auto 0.04 X10*3/uL (0.00-0.03); Imm Gran Pct Auto 0.3 % (0.0-0.4); Lymphocytes Absolute Auto 2.1 X10*3/uL (1.2-4.9); Lymphocytes Percent Auto 18.1 % (20-40); Mean Corpuscular HGB Conc 32.9 g/dl (31.0-35.0); Mean Corpuscular Hemoglobin 29.6 pg (27.0-33.0); Monocytes Absolute Auto 0.3 X10*3/uL (0.1-1.2); Monocytes Percent Auto 2.8 % (2-11); Neutrophils Percent Auto 78.2 % (45-73); Platelet Count 262 X10*3/uL (160-400); Red Cell Distribution Width 13.4 % (11.0-16.0); White Blood Count 11.5 X10*3/uL (4.8-10.8)
[2023-03-06 14:22] LABS: Anion Gap 11 (12-20); Blood Urea Nitrogen 7 mg/dL (9-16); Calcium 9.5 mg/dL (8.4-10.2); Carbon Dioxide 26 mmol/L (22-29); Chloride 106 mmol/L (96-108); Creatinine Clr Calc Pharmacy 106.1; Estimated Glomerular Filt Rate > 60; Glucose Random 100 mg/dL (60-115); Potassium 3.9 mmol/L (3.3-5.1); Sodium 139 mmol/L (135-145)
[2023-03-06 14:34] LABS: Troponin-I High Sensitivity < 2.7 ng/L (<3.5-17.0)
[2023-03-06 15:32] LABS: INTERNATIONAL NORM RATIO 1.1 (0.9-1.1); Prothrombin Time 13.7 SEC (11.1-13.3)
[2023-03-06 15:34] LABS: Partial Thromboplastin Time 35.3 SEC (26.0-36.4)
[2023-03-06 15:51] LABS: D Dimer High Sensitivity < 150 NG/ML
== END 2023-03-06 16:13 | disposition home or self-care (01) ==
PROVIDERS: Physician Assistant; Registered Nurse Emergency; Emergency Provider Emergency Medicine Emergency Medical Services; PCP Internal Medicine Geriatric Medicine
DX: R07.9 Chest pain, unspecified (principal)
CPT/HCPCS: 36415; 71046; 80048; 84484; 85025; 85379; 85610; 85730; 93005; 99283

== ENCOUNTER 2023-03-17 18:49 | Emergency (ER) | payer MEDICAID, SELFPAY ==
--- NOTE | ~2023-03-17 | XR_ITS ---
EXAMINATION: XR CHEST CLINICAL INFORMATION: Chest pain COMPARISON: 03/06/2023 TECHNIQUE: 2 views of the chest were obtained. FINDINGS: No significant abnormality is noted involving the heart, lungs, mediastinum, bony thorax or soft tissues. XR/XR chest 2V IMPRESSION: Unremarkable examination.
--- NOTE | 2023-03-17 18:59 | ECG_ITS ---
Test Reason : CHEST PAIN Blood Pressure : / mmHG Vent. Rate : 077 BPM Atrial Rate : 077 BPM P-R Int : 126 ms QRS Dur : 088 ms QT Int : 360 ms P-R-T Axes : 032 056 056 degrees QTc Int : 407 ms Normal sinus rhythm Normal ECG When compared with ECG of 06-MAR-2023 11:23, No significant change was found Referred By: Jayesh Hearn Electronically Signed By:NERI ROBLES
--- NOTE | 2023-03-17 19:09 | PC.NURSE ---
no answer multiple times
--- NOTE | 2023-03-17 19:25 | ED.GENADULT ---
HPI - General Adult General Chief complaint: Chest Pain Stated complaint: Chest pain, no appetite, congestion Time Seen by Provider: 03/17/23 20:53 Source: patient Mode of arrival: ambulatory Limitations: no limitations History of Present Illness HPI narrative: Patient is a 27-year-old female who presents to the emergency department for evaluation of multiple symptoms including diffuse chest pain, shortness of breath, nasal congestion, nausea vomiting and diarrhea since yesterday. She states that she has recently been trying to cut down on her amount of heroin usage. She is using heroin intranasally denies IV injection. Denies fevers, chills, abdominal pain, genitourinary symptoms. She reports a history of similar chest pain over the past month which she has had evaluated a few times and multiple the emergency department without any identified cause. Related Data Previous Rx's Medication Instructions Recorded cephalexin 500 mg capsule 500 mg PO TID 7 days #21 caps 02/10/22 ibuprofen 600 mg tablet 600 mg PO Q6H PRN pain #30 tabs 02/10/22 Allergies Allergy/AdvReac Type Severity Reaction Status Date / Time No Known Allergies Allergy Verified 03/05/23 22:15 [No Known Allergies*] Review of Systems Review of Systems: Yes all other systems are reviewed and are negative PMFSH Past Medical History Source: old records reviewed Medical History Opiate abuse, continuous No known health problems Social History Social History Patient Tobacco Use Status: Tobacco use Unknown Substance Use Type: Heroin Advance Directives: No Patient : No Physical Exam ED Vital Signs: Vital Signs - 24 hr 03/17/23 19:34 03/17/23 21:01 Temperature 98.7 F 98.3 F Pulse Rate 82 68 Respiratory Rate 17 13 Blood Pressure 131/79 103/80 Pulse Oximetry 96 100 Oxygen Delivery Method Room Air Room Air BMI result Body Mass Index 17.5 Appearance: Alert.?Oriented to person, place and time. No acute distress.?Normal affect. Eyes: Pupils equal, round and reactive to light.? ENT: Pharynx normal.?? Neck: Normal inspection.? Neck supple.?? CVS: Heart sounds normal. Normal heart rate and rhythm.? Pulses normal.?? Respiratory: No respiratory distress.? Lung sounds clear to auscultation bilaterally?? Abdomen: Soft and non-tender. Normoactive bowel sounds. ?No CVA tenderness? Skin: Skin warm and dry.? Normal skin color.? ? Extremities: No lower extremity edema.? No calf ttp? Neuro: Moves all extremities spontaneously. Sensation intact bilaterally. Ambulates with normal steady gait. Course Course Course Narrative: This is an RME: Additional HPI, ROS, PE not included below will be deferred to primary provider. 27 y o female PMH heroin use disorder presenting for chest pain and shortness of breath since yesterday. She has been trying to cut down on her heroin use. Plan -- EKG, labs Reevaluation(s) Reevaluation #1: High sensitive troponin is below detectable level, EKG revealing normal sinus rhythm without acute ischemic findings, given duration of symptoms likely less likely this to be ACS. CBC and CMP are overall unremarkable. Chest x-ray revealing no acute cardiopulmonary process no evidence of pneumonia or pneumothorax. COVID-19 testing is negative. Suspect symptoms to be related to viral syndrome verses mild withdrawal symptoms given decrease opiate usage. Offered consultation with recovery analyst she however declined at this time she would just like contact information for outpatient detox which she was provided with. At this time she is stable for discharge home. Reviewed worrisome signs and symptoms that would warrant re-evaluation in the emergency department. All questions answered. Time: 22:02 Medical Decision Making Medical Decision Making MDM Narrative: Patient is a 27-year-old female past medical history of opiate use disorder presenting to emergency department for evaluation of multiple complaints as per HPI. At the time my examination she is overall well-appearing. She is nontoxic afebrile without tachycardia and no respiratory distress nor hypoxia. She speaking clear full sentences. She endorses a pain to the mid/left upper chest that is made worse with deep inspiration/movement that appears most consistent with pleurisy. Denies recent lower extremity swelling calf pain prolonged travel, prolonged immobilization or recent surgery.PERC negative unlikely pulmonary embolism. Low risk factor for ACS, . Atraumatic. Denies fevers or chills. Will obtain CBC to evaluate for leukocytosis/ anemia, CMP and lipase to evaluate for abnormal electrolytes /abnormal renal function/ abnormal hepatic/biliary function, EKG and troponin to evaluate for ischemia/ACS. Chest x-ray to evaluate for consolidation/ infiltrate/ mass/ pulmonary congestion and Urinalysis. Differential Diagnosis Differential Diagnoses: The differential diagnosis associated with the presentation includes (ACS, PE, anxiety, pneumonia, viral syndrome, opioid withdrawal) Admission/Observation Consideration of admission/observation: Escalation of care including admission/observation considered (Initially considered observation, see course narrative for further detail) Lab Data MDM Lab Attestation statement: I reviewed the patient's lab results. CBC and CMP are overall unremarkable. High sensitive troponin below detectable levels. 03/17/23 19:21 03/17/23 19:21 Labs: Lab Results 03/17/23 Range/Units 19:21 WBC 10.9 H (4.8-10.8) X10*3/uL RBC 4.89 (4.20-5.50) X10*6/uL Hgb 14.5 (12.0-16.0) g/dl Hct 43.4 (37.0-47.0) % MCV 88.8 (80.0-98.0) fL MCH 29.7 (27.0-33.0) pg MCHC 33.4 (31.0-35.0) g/dl RDW 13.7 (11.0-16.0) % Plt Count 260 (160-400) X10*3/uL MPV 9.8 (9.4-12.3) fL Immature Gran % (Auto) 0.3 (0.0-0.4) % Neut % (Auto) 68.7 (45-73) % Lymph % (Auto) 25.2 (20-40) % Churchill % (Auto) 4.9 (2-11) % Eos % (Auto) 0.4 (0-4) % Baso % (Auto) 0.5 (0-2) % Lymph # (Auto) 2.8 (1.2-4.9) X10*3/uL Churchill # (Auto) 0.5 (0.1-1.2) X10*3/uL Eos # (Auto) 0.0 (0.0-0.4) X10*3/uL Baso # (Auto) 0.1 (0.0-0.2) X10*3/uL Abs Immat Gran (auto) 0.03 (0.00-0.03) X10*3/uL Absolute Neuts (auto) 7.5 (2.0-8.3) x10*3/uL Absolute Nucleated RBC 0.000 (0.0-0.012) X10*3/uL Nucleated RBC % (auto) 0.0 (0.0-0.2) /100WBC Sodium 139 (135-145) mmol/L Potassium 3.7 (3.3-5.1) mmol/L Chloride 102 (96-108) mmol/L Carbon Dioxide 27 (22-29) mmol/L Anion Gap 14 (12-20) BUN 10 (9-16) mg/dL Creatinine 0.73 (0.5-1.4) mg/dL Estim Creat Clear Calc 80.9 Estimated GFR > 60 Random Glucose 125 H (60-115) mg/dL Calcium 10.2 D (8.4-10.2) mg/dL Magnesium 2.1 (1.6-2.6) mg/dL Total Bilirubin 0.6 (0.0-1.0) mg/dL AST 15 (5-31) U/L ALT 10 (0-31) U/L Alkaline Phosphatase 55 (39-117) U/L Troponin I High Sens < 2.7 (<3.5-17.0) ng/L Total Protein 8.7 H (6.5-8.0) g/dL Albumin 4.9 (3.5-5.0) g/dL Independent Interpretation I performed an independent interpretation of an: EKG and Plain X-Ray (I personally interpreted chest x-ray and agree with radiologist impression, no evidence of acute pneumonia or pneumothorax.) Interpretation: Rate: 77 Rhythm: Normal sinus rhythm? Normal P waves.? Normal ELISEO.?? Normal QRS complex.?? ST T wave :??No ST elevation, no ST depression, no T-wave inversion qTC: 407 prior studies:? February 2023 The study has been interpreted contemporaneously by me. Radiology Impression Discussion of test interpretation with radiology: I have reviewed the radiologist's reading. Radiologist Impression: XR/XR chest 2V IMPRESSION: Unremarkable examination. Independent Historian Clinical information obtained from an independent historian. History obtained from or confirmed by: Spouse (Present at bedside who confirms history) External Record Review External record reviewed: Outpatient record Prescription Management I considered prescription management with: Pain Medication (Acetaminophen/ibuprofen) Discharge Plan Discharge Clinical Impression: Chest pain Patient Disposition: Home, Self-Care Instructions: Noncardiac Chest Pain (ED), Chest Pain (ED) Additional Instructions: You can take ibuprofen 200 mg, 3 tablets (600mg) every 6-8 hours as needed for pain, in addition to Tylenol 500 mg, 2 tablets (1,000mg) every 4-6 hours as needed for pain, but not to exceed 3 doses daily (3,000mg).? Please contact your primary care provider and arrange for a follow-up visit within 3 days. You may return back to emergency department any new or worsening symptoms or concerns. This might include worsening chest pain, coughing up blood, weakness, dizziness, passing out. Prescriptions: No Action cephalexin 500 mg capsule 500 mg PO TID 7 Days Qty: 21 0RF ibuprofen 600 mg tablet 600 mg PO Q6H PRN (Reason: pain) Qty: 30 0RF Referrals: Name,MD Mann [Primary Care Provider] -
[2023-03-17 19:34] VITALS: BP 131/79; PULSE 82; RESP 17; TEMP 37.1; O2SAT 96; BMI 17.5
[2023-03-17 19:36] LABS: MANUAL DIFF FLAG NO
[2023-03-17 19:38] LABS: Basophils Absolute Auto 0.1 X10*3/uL (0.0-0.2); Basophils Percent Auto 0.5 % (0-2); Eosinophils Percent Auto 0.4 % (0-4); Hematocrit 43.4 % (37.0-47.0); Hemoglobin 14.5 g/dl (12.0-16.0); Imm Gran Abs Auto 0.03 X10*3/uL (0.00-0.03); Imm Gran Pct Auto 0.3 % (0.0-0.4); Lymphocytes Absolute Auto 2.8 X10*3/uL (1.2-4.9); Lymphocytes Percent Auto 25.2 % (20-40); Mean Corpuscular HGB Conc 33.4 g/dl (31.0-35.0); Mean Corpuscular Hemoglobin 29.7 pg (27.0-33.0); Mean Corpuscular Volume 88.8 fL (80.0-98.0); Mean Platelet Volume 9.8 fL (9.4-12.3); Monocytes Absolute Auto 0.5 X10*3/uL (0.1-1.2); Monocytes Percent Auto 4.9 % (2-11); Neutrophils Absolute Auto 7.5 x10*3/uL (2.0-8.3); Neutrophils Percent Auto 68.7 % (45-73); Platelet Count 260 X10*3/uL (160-400); Red Blood Count 4.89 X10*6/uL (4.20-5.50); Red Cell Distribution Width 13.7 % (11.0-16.0); White Blood Count 10.9 X10*3/uL (4.8-10.8)
[2023-03-17 19:56] LABS: Alanine Aminotransferase 10 U/L (0-31); Albumin Level 4.9 g/dL (3.5-5.0); Alkaline Phosphatase 55 U/L (39-117); Anion Gap 14 (12-20); Aspartate Amino Transferase 15 U/L (5-31); Bilirubin Total 0.6 mg/dL (0.0-1.0); Blood Urea Nitrogen 10 mg/dL (9-16); Calcium 10.2 mg/dL (8.4-10.2); Carbon Dioxide 27 mmol/L (22-29); Chloride 102 mmol/L (96-108); Creatinine Clr Calc Pharmacy 80.9; Estimated Glomerular Filt Rate > 60; Glucose Random 125 mg/dL (60-115); Magnesium 2.1 mg/dL (1.6-2.6); Potassium 3.7 mmol/L (3.3-5.1); Sodium 139 mmol/L (135-145); Total Protein 8.7 g/dL (6.5-8.0)
[2023-03-17 20:06] LABS: Troponin-I High Sensitivity < 2.7 ng/L (<3.5-17.0)
[2023-03-17 20:53] VITALS: PULSE 78
[2023-03-17 21:01] VITALS: BP 103/80; PULSE 68; RESP 13; TEMP 36.8; O2SAT 100
[2023-03-17 21:41] LABS: COVID-19 Test Negative (Negative); IDNOW Serial# BCCEAD1C
== END 2023-03-17 22:53 | disposition home or self-care (01) ==
PROVIDERS: Nurse Practitioner Family; Physician Assistant; Emergency Provider Emergency Medicine Emergency Medical Services; PCP Internal Medicine Geriatric Medicine
DX: R07.89 Other chest pain (principal); R06.02 Shortness of breath; R11.2 Nausea with vomiting, unspecified; Z20.822 Contact with and (suspected) exposure to COVID-19; Z20.828 Contact with and (suspected) exposure to other viral communicable diseases; Z79.899 Other long term (current) drug therapy
CPT/HCPCS: 36415; 71046; 80053; 83735; 84484; 85025; 87635; 93005; 99283; 99285

== ENCOUNTER 2023-03-19 15:54 | Emergency (ER) | payer MEDICAID, SELFPAY ==
--- NOTE | 2023-03-19 | ECG_ITS ---
Test Reason : CHEST PAIN Blood Pressure : / mmHG Vent. Rate : 093 BPM Atrial Rate : 093 BPM P-R Int : 130 ms QRS Dur : 076 ms QT Int : 362 ms P-R-T Axes : 080 061 071 degrees QTc Int : 450 ms Normal sinus rhythm with sinus arrhythmia Possible Left atrial enlargement Borderline ECG When compared with ECG of 17-MAR-2023 19:11, No significant change was found Referred By: Generic ED Physician Electronically Signed By:NERI ROBLES
--- NOTE | ~2023-03-19 | XR_ITS ---
EXAMINATION: XR CHEST CLINICAL INFORMATION: Chest pain. COMPARISON: 03/17/2023. TECHNIQUE: Frontal view of the chest was obtained. FINDINGS: The cardiomediastinal silhouette is normal. There is no focal lung consolidation or pleural effusion. The bony structures and soft tissues are unremarkable. XR/XR chest 1V IMPRESSION: No active cardiopulmonary disease.
[2023-03-19 16:58] VITALS: BP 108/70; PULSE 86; RESP 18; TEMP 36.8; O2SAT 97; BMI 18.6
--- NOTE | 2023-03-19 17:00 | ED_ITS ---
HPI - General Adult General Chief complaint: Chest Pain Stated complaint: chest pain Time Seen by Provider: 03/19/23 20:37 Source: patient Mode of arrival: ambulatory Limitations: no limitations History of Present Illness HPI narrative: 27-year-old female with history of heroin use presents with chest pain. The chest pain started on Thursday. The pain has been intermittent. This is not associated with exertion. It is associated with deep inspiration and movements. The pain does not radiate. Pain can be bilateral or unilateral in nature. Patient has tried ibuprofen without significant improvement in her symptoms. She denies any shortness of breath, lower extremity edema, recent trauma, surgeries, or long distance travel. Patient describes the pain as severe. Over last 24 hours, the pain is gotten worse and is more persistent. Is associated with decreased appetite. The pain is described as a sharp pain. Is not associated with eating or drinking. Patient denies a history of coronary artery disease, vascular disease or family history of chronic medical problems. Related Data Previous Rx's Medication Instructions Recorded famotidine 20 mg tablet 20 mg PO BID #30 tabs 03/19/23 naproxen 500 mg tablet 500 mg PO BID 2 weeks #28 tabs 03/19/23 Allergies Allergy/AdvReac Type Severity Reaction Status Date / Time No Known Allergies Allergy Verified 03/19/23 16:58 [No Known Allergies*] Review of Systems 2 Review of Systems: CONSTITUTIONAL: Denies weight loss, fever and chills. HEENT: Denies changes in vision and hearing. RESPIRATORY: Denies SOB and cough. CV: Denies palpitations + CP. GI: Denies abdominal pain, nausea, vomiting and diarrhea. : Denies dysuria and urinary frequency. MSK: Denies myalgia and joint pain. SKIN: Denies rash and pruritus. NEUROLOGICAL: Denies headache and syncope. PSYCHIATRIC: Denies recent changes in mood. Denies anxiety and depression. All other ROS are negative unless in HPI PMFSH Past Medical History Medical History Opiate abuse, continuous No known health problems Social History Social History Alcohol intake: never Patient Tobacco Use Status: Tobacco use Unknown Smoked in Last 30 Days: Yes Substance Use Type: Heroin Advance Directives: No Advance Directives Information Provided: No Patient : No Physical Exam ED Vital Signs: Vital Signs - 24 hr 03/19/23 16:58 03/19/23 20:28 Temperature 98.2 F 98.3 F Pulse Rate 86 73 Respiratory Rate 18 12 Blood Pressure 108/70 111/72 Pulse Oximetry 97 100 Oxygen Delivery Method Room Air Room Air BMI result Body Mass Index 18.6 GEN: Well developed, no acute distress, alert, oriented HEENT: Normocephalic, atraumatic, normal external ears, nose appears normal, no oropharyngeal edema or exudates Eyes: Normal to appearance Neck: Supple, no lymphadenopathy Respiratory: Talks in complete sentences, no respiratory distress, clear to auscultation bilaterally Cardiovascular: Regular rate and rhythm, no murmurs rubs or gallops Abdomen: Soft, nontender, nondistended, no guarding, no rebound Back: No CVA tenderness Extremities: No clubbing cyanosis or edema Neurologic: No focal neurologic deficits, cranial nerves 2-12 intact, strength is 5/5 bilaterally Skin: No rash Chest wall: Reproducible chest wall tenderness to palpation over bilateral midclavicular lines, left greater than right Course Course Course Narrative: RME: 27 yold female presents to the ED chest pain for long time. patient states seen in the ED twice for chest pain. Labs and EKG ordered. Evalauted by ED provider Reevaluation(s) Reevaluation #1: The workup is complete. Cardiac enzymes are negative and after 3-4 days of symptoms, cardiac enzymes either essentially diagnostic against acute coronary syndrome. Chest x-ray reveals no acute cardiopulmonary disease such as pneumothorax, pulmonary disease, pleural effusions. EKG did not demonstrate any acute ST elevations depressions, evidence of old myocardial infarction, pulsus alternans, diffuse MT depressions or ST elevations suggest pericarditis. Oral cardiac examination did not reveal any murmurs and therefore less likely to be valvular disease. Chest x-ray also does not reveal any acute cardiopulmonary infiltrate such as pneumonia or CHF as a cause of her symptoms. Her exam is most consistent with costochondritis. I will treat the patient with anti- inflammatory pain medications and recommend follow up as needed. Time: 20:54 Medications Administered Discontinued Medications Generic Name Dose Route Start Last Admin Trade Name Freq PRN Reason Stop Dose Admin Acetaminophen 975 mg 03/19/23 20:50 03/19/23 21:32 Acetaminophen 325 Mg Tablet PO 03/19/23 20:51 975 mg ONCE ONE Administration Famotidine 20 mg 03/19/23 20:50 03/19/23 21:32 Famotidine 20 Mg Tablet PO 03/19/23 20:51 20 mg ONCE ONE Administration Naproxen 500 mg 03/19/23 20:50 03/19/23 21:32 Naproxen 500 Mg Tablet PO 03/19/23 20:51 500 mg ONCE ONE Administration Medical Decision Making Medical Decision Making [facility] Narrative: 27-year-old female presented with chest pain that is worse with inspiration and certain movements. Examination revealed reproducible chest wall tenderness lung midclavicular line which is most consistent with acute costochondritis. Patient does use heroin. Other differential diagnosis could not acute care any syndrome, angina, musculoskeletal chest pain, muscle spasm, GERD, gastritis, pneumothorax, pneumonia, anxiety. EKG reveals no acute ischemic changes no evidence of old myocardial infarction. Her cardiac examination did not reveal any murmurs to suggest valvular disease as an etiology for symptoms. EKG also does not reveal any acute MT depressions or ST elevations suggestive of acute pericarditis. Will order chest x-ray to rule out other cardiopulmonary disease. Patient would likely benefit from nonsteroidal anti-inflammatory pain medications. Differential Diagnosis Differential Diagnoses: The differential diagnosis associated with the presentation includes (See above) Admission/Observation Consideration of admission/observation: Escalation of care including admission/observation considered Lab Data [facility] Lab Attestation statement: I reviewed the patient's lab results. 03/19/23 17:25 03/19/23 17:25 Labs: Lab Results 03/19/23 03/19/23 Range/Units 17:25 19:13 WBC 8.8 (4.8-10.8) X10*3/uL RBC 4.97 (4.20-5.50) X10*6/uL Hgb 14.5 (12.0-16.0) g/dl Hct 44.4 (37.0-47.0) % MCV 89.3 (80.0-98.0) fL MCH 29.2 (27.0-33.0) pg MCHC 32.7 (31.0-35.0) g/dl RDW 13.3 (11.0-16.0) % Plt Count 241 (160-400) X10*3/uL MPV 10.0 (9.4-12.3) fL Immature Gran % (Auto) 0.2 (0.0-0.4) % Neut % (Auto) 64.4 (45-73) % Lymph % (Auto) 27.7 (20-40) % Teller % (Auto) 5.9 (2-11) % Eos % (Auto) 0.9 (0-4) % Baso % (Auto) 0.9 (0-2) % Lymph # (Auto) 2.5 (1.2-4.9) X10*3/uL Teller # (Auto) 0.5 (0.1-1.2) X10*3/uL Eos # (Auto) 0.1 (0.0-0.4) X10*3/uL Baso # (Auto) 0.1 (0.0-0.2) X10*3/uL Abs Immat Gran (auto) 0.02 (0.00-0.03) X10*3/uL Absolute Neuts (auto) 5.7 (2.0-8.3) x10*3/uL Absolute Nucleated RBC 0.000 (0.0-0.012) X10*3/uL Nucleated RBC % (auto) 0.0 (0.0-0.2) /100WBC PT Cancelled INR Cancelled APTT Cancelled Sodium 139 (135-145) mmol/L Potassium 4.2 (3.3-5.1) mmol/L Chloride 101 (96-108) mmol/L Carbon Dioxide 24 (22-29) mmol/L Anion Gap 18 (12-20) BUN 9 (9-16) mg/dL Creatinine 0.68 (0.5-1.4) mg/dL Estim Creat Clear Calc 92.6 Estimated GFR > 60 Random Glucose 108 (60-115) mg/dL Calcium 10.0 (8.4-10.2) mg/dL Total Bilirubin 0.7 (0.0-1.0) mg/dL AST 16 (5-31) U/L ALT 10 (0-31) U/L Alkaline Phosphatase 53 (39-117) U/L Troponin I High Sens < 2.7 (<3.5-17.0) ng/L Total Protein 8.4 H (6.5-8.0) g/dL Albumin 4.8 (3.5-5.0) g/dL Independent Interpretation I performed an independent interpretation of an: EKG (Normal sinus rhythm heart rate 93, no acute ST elevations depressions nonspecific T-wave changes, low voltage in lead aVL, possible RSR prime pattern in V1 and V2.) and Plain X-Ray (Chest: No acute cardiopulmonary disease) Independent Historian Clinical information obtained from an independent historian. History obtained from or confirmed by: Other (Significant other) Prescription Management I considered prescription management with: Pain Medication Chronic Conditions Patient?s care impacted by: Other (Drug use) Discharge Plan Discharge Clinical Impression: Costalchondritis Patient Disposition: Home, Self-Care Instructions: Costochondritis (ED) Additional Instructions: For pain: Naproxen 500 mg twice a day for 2 weeks Tylenol 1000 mg every 6 hours as needed for additional pain relief Famotidine 20 mg twice a day to reduce symptoms of reflux Prescriptions: New naproxen 500 mg tablet 500 mg PO BID 14 Days Qty: 28 0RF famotidine 20 mg tablet 20 mg PO BID Qty: 30 0RF Discontinued cephalexin 500 mg capsule 500 mg PO TID 7 Days Qty: 21 0RF ibuprofen 600 mg tablet 600 mg PO Q6H PRN (Reason: pain) Qty: 30 0RF Referrals: Mann Amin MD [Primary Care Provider] - 1 week Interventions: ED Discharge Assessment Last Done: 03/19/23 21:50 Discharge Date/Time: 03/19/23 21:50 Print Language: Djiboutian
[2023-03-19 17:29] LABS: MANUAL DIFF FLAG NO
[2023-03-19 17:59] LABS: Basophils Absolute Auto 0.1 X10*3/uL (0.0-0.2); Basophils Percent Auto 0.9 % (0-2); Eosinophils Absolute Auto 0.1 X10*3/uL (0.0-0.4); Eosinophils Percent Auto 0.9 % (0-4); Hematocrit 44.4 % (37.0-47.0); Hemoglobin 14.5 g/dl (12.0-16.0); Imm Gran Abs Auto 0.02 X10*3/uL (0.00-0.03); Imm Gran Pct Auto 0.2 % (0.0-0.4); Lymphocytes Absolute Auto 2.5 X10*3/uL (1.2-4.9); Lymphocytes Percent Auto 27.7 % (20-40); Mean Corpuscular HGB Conc 32.7 g/dl (31.0-35.0); Mean Corpuscular Hemoglobin 29.2 pg (27.0-33.0); Mean Corpuscular Volume 89.3 fL (80.0-98.0); Monocytes Absolute Auto 0.5 X10*3/uL (0.1-1.2); Monocytes Percent Auto 5.9 % (2-11); Neutrophils Absolute Auto 5.7 x10*3/uL (2.0-8.3); Neutrophils Percent Auto 64.4 % (45-73); Platelet Count 241 X10*3/uL (160-400); Red Blood Count 4.97 X10*6/uL (4.20-5.50); Red Cell Distribution Width 13.3 % (11.0-16.0); White Blood Count 8.8 X10*3/uL (4.8-10.8)
[2023-03-19 18:03] LABS: Alanine Aminotransferase 10 U/L (0-31); Albumin Level 4.8 g/dL (3.5-5.0); Alkaline Phosphatase 53 U/L (39-117); Anion Gap 18 (12-20); Aspartate Amino Transferase 16 U/L (5-31); Bilirubin Total 0.7 mg/dL (0.0-1.0); Blood Urea Nitrogen 9 mg/dL (9-16); Carbon Dioxide 24 mmol/L (22-29); Chloride 101 mmol/L (96-108); Creatinine Clr Calc Pharmacy 92.6; Estimated Glomerular Filt Rate > 60; Glucose Random 108 mg/dL (60-115); Potassium 4.2 mmol/L (3.3-5.1); Sodium 139 mmol/L (135-145); Total Protein 8.4 g/dL (6.5-8.0)
[2023-03-19 18:18] LABS: Troponin-I High Sensitivity < 2.7 ng/L (<3.5-17.0)
--- NOTE | 2023-03-19 19:13 | MHC.EDTECH ---
PATIENT PTINR /PTT DRAWN AND SENT TO LAB .
[2023-03-19 20:28] VITALS: BP 111/72; PULSE 73; RESP 12; TEMP 36.8; O2SAT 100
--- NOTE | 2023-03-19 20:29 | PC.NURSE ---
Pt reports 6/10 pain in sternal chest radiating to left and right side intermittently. Pain is making it difficult to eat and do day to day activities and patient reports she feels very weak. VSS at this time, ekg complete and labs drawn. Patient endorses sniffing heroin today and is current daily smoker. Pt also saw PCP today butbp was ok and they recommended coming to ED but putting in a cardiology consult.
[2023-03-19] MEDS: NaPROXEN 500 MG TABLET PO (21:32)
[2023-03-19] MEDS: Acetaminophen 325 MG TABLET 975 MG PO (21:32)
[2023-03-19] MEDS: Famotidine 20 MG TABLET PO (21:32)
== END 2023-03-19 21:50 | disposition home or self-care (01) ==
PROVIDERS: Physician Assistant; Emergency Provider Emergency Medicine; PCP Internal Medicine Geriatric Medicine
DX: M94.0 Chondrocostal junction syndrome [Tietze] (principal); F11.20 Opioid dependence, uncomplicated; Z79.899 Other long term (current) drug therapy
CPT/HCPCS: 36415; 71045; 80053; 84484; 85025; 93005; 99283; 99285

== ENCOUNTER 2023-03-23 21:46 | Emergency (ER) | payer MEDICAID, SELFPAY ==
--- NOTE | 2023-03-23 | ECG_ITS ---
Test Reason : CHEST PAIN Blood Pressure : / mmHG Vent. Rate : 097 BPM Atrial Rate : 097 BPM P-R Int : 138 ms QRS Dur : 076 ms QT Int : 352 ms P-R-T Axes : 080 066 070 degrees QTc Int : 447 ms Normal sinus rhythm Normal ECG When compared with ECG of 19-MAR-2023 16:08, No significant change was found Referred By: Generic ED Physician Electronically Signed By:NERI ROBLES
[2023-03-23 21:55] VITALS: BP 126/87; PULSE 83; RESP 16; TEMP 36.8; O2SAT 98
[2023-03-23 21:57] VITALS: BP 126/87; PULSE 83; RESP 16; TEMP 36.8; O2SAT 98; BMI 17.7
--- NOTE | 2023-03-23 22:00 | MHC.EDTECH ---
PATIENT EKG TAKEN AND WAS READ BY PROVIDER ,VITALS TAKEN ,BLOOD DRAWN AND SENT TO LAB .
[2023-03-23 22:04] LABS: Hematocrit 40.5 % (37.0-47.0); Hemoglobin 13.3 g/dl (12.0-16.0); Mean Corpuscular HGB Conc 32.8 g/dl (31.0-35.0); Mean Corpuscular Hemoglobin 29.6 pg (27.0-33.0); Mean Platelet Volume 9.4 fL (9.4-12.3); Platelet Count 233 X10*3/uL (160-400); Red Cell Distribution Width 13.4 % (11.0-16.0); White Blood Count 13.2 X10*3/uL (4.8-10.8)
[2023-03-23 22:19] LABS: Alanine Aminotransferase 6 U/L (0-31); Albumin Level 4.5 g/dL (3.5-5.0); Alkaline Phosphatase 53 U/L (39-117); Anion Gap 14 (12-20); Aspartate Amino Transferase 16 U/L (5-31); Bilirubin Total 0.5 mg/dL (0.0-1.0); Blood Urea Nitrogen 10 mg/dL (9-16); Calcium 9.7 mg/dL (8.4-10.2); Carbon Dioxide 28 mmol/L (22-29); Chloride 104 mmol/L (96-108); Creatinine Clr Calc Pharmacy 62.4; Estimated Glomerular Filt Rate > 60; Glucose Random 94 mg/dL (60-115); Potassium 3.7 mmol/L (3.3-5.1); Sodium 142 mmol/L (135-145); Total Protein 7.6 g/dL (6.5-8.0)
[2023-03-23 22:35] LABS: Troponin-I High Sensitivity < 2.7 ng/L (<3.5-17.0)
[2023-03-24 01:51] VITALS: BP 109/79; PULSE 88; O2SAT 100
--- NOTE | 2023-03-24 02:15 | PC.NURSE ---
Addendum entered by Venita Coombs 03/24/23 02:21: pt lung sounds clear bilaterally. Original Note: this rn assumed care of pt. pt a&ox3. respirations even and unlabored. pt reports a constant epigastric pain for about two weeks that has not subsided. pt reports being seen here at [facility] on thursday and given medications that have not seemed to help the pain. pt reports heroin use prior to arrival to the ED. pt denies that heroin use makes the pain worse. pt is normal sinus on tele 82-84 at this time. pt denies nausea, vomiting and SOB.
--- NOTE | 2023-03-24 02:40 | ED_ITS ---
HPI - Chest Pain General Chief Complaint: Chest Pain Stated Complaint: Chest pain Time Seen by Provider: 03/24/23 02:38 Source: patient Mode of arrival: ambulatory Limitations: no limitations History of Present Illness HPI narrative: 27-year-old female with history of heroin use, no intravenous drug abuse presents with continued chest pain. Chest pain started approximately a week to week and half ago. The pain is intermittent. Worse with inspiration and movement. It is not associated with exertion. The pain does not radiate. Sternal in nature. Patient has been on naproxen since last time she was in the emergency department with moderate improvement in her symptoms. Today she describes also some worsening symptoms associated with eating and drinking. She has had no nausea, vomiting, diarrhea, blood in stool of. Her symptoms do not appear to be significantly positional so for example not worse with lying back or leaning forward. She denies any lower extremity edema. She has had no fevers or chills. She has no history or risk factors for pulmonary embolus. Related Data Previous Rx's Medication Instructions Recorded famotidine 20 mg tablet 20 mg PO BEDTIME #20 tabs 03/24/23 meloxicam 15 mg tablet 15 mg PO DAILY #20 tabs 03/24/23 omeprazole 40 mg capsule,delayed 40 mg PO DAILY #20 caps 03/24/23 release Allergies Allergy/AdvReac Type Severity Reaction Status Date / Time No Known Allergies Allergy Verified 03/19/23 16:58 [No Known Allergies*] Review of Systems 2 Review of Systems: CONSTITUTIONAL: Denies weight loss, fever and chills. HEENT: Denies changes in vision and hearing. RESPIRATORY: Denies SOB and cough. CV: Denies palpitations + CP. GI: Denies abdominal pain, nausea, vomiting and diarrhea. : Denies dysuria and urinary frequency. MSK: Denies myalgia and joint pain. SKIN: Denies rash and pruritus. NEUROLOGICAL: Denies headache and syncope. PSYCHIATRIC: Denies recent changes in mood. Denies anxiety and depression. All other ROS are negative unless in HPI PMFSH Past Medical History Medical History Opiate abuse, continuous No known health problems Social History Social History Alcohol intake: never Patient Tobacco Use Status: Tobacco use Unknown Smoked in Last 30 Days: Yes Use of substances other than those prescribed or required for medical reasons: Yes Substance Use Type: Heroin Substance Use Frequency: Daily Last Used Substance: Just Prior to Admission Advance Directives: No Advance Directives Information Provided: Yes Physical Exam 2 Vital Signs: Vital Signs: Last Vital Signs Temp 98.2 F 03/23/23 21:57 Pulse 88 03/24/23 01:51 Resp 16 03/23/23 21:57 BP 109/79 03/24/23 01:51 Pulse Ox 100 03/24/23 01:51 O2 Del Method Room Air 03/24/23 01:51 BMI result Body Mass Index 17.7 GEN: Well developed, no acute distress, alert, oriented HEENT: Normocephalic, atraumatic, normal external ears, nose appears normal, no oropharyngeal edema or exudates Eyes: Normal to appearance Neck: Supple, no lymphadenopathy Respiratory: Talks in complete sentences, no respiratory distress, clear to auscultation bilaterally Cardiovascular: Regular rate and rhythm, no murmurs rubs or gallops Abdomen: Soft, nontender, nondistended, no guarding, no rebound Back: No CVA tenderness Extremities: No clubbing cyanosis or edema Neurologic: No focal neurologic deficits, cranial nerves 2-12 intact, strength is 5/5 bilaterally Skin: No rash Chest wall: Reproducible tenderness to palpation Course Course Course Narrative: It is nearly 3:00 a.m. in the morning. The workup is complete. Cardiac enzymes again or negative. EKG shows no evidence of ischemia. There are no diffuse AR depressions or ST elevations to suggest pericarditis. She has no murmurs rubs or gallops. The no murmurs, no history of recent intravenous drug abuse to suggest endocarditis. Patient has no PE risk factors in her PERC score is 0. At this point, I do believe patient most likely is suffering from some form of pleurisy. Will refer to animal humane agent supervisor and patternmaker metal. Will switch her to selective Berkowitz inhibitor given what sounds like gastroesophageal symptoms. Will also modify her esophagitis medications Medical Decision Making Medical Decision Making MDM Narrative: 27-year-old female with history of heroin use presents with chest pain. Patient is not an IV drug user. She has had no fevers or chills. Examination revealed reproducible chest wall tenderness, no murmurs. Her examination does not show improvement with various positions. Her lungs are clear to auscultation bilaterally. I doubt endocarditis, myocarditis, pericarditis. This is most likely a pleuritic type of chest pain that is musculoskeletal or pleuritis. Laboratory analysis been ordered prior to my evaluation. I did review her EKG which shows no evidence of pericarditis, acute ischemic changes, arrhythmia. Patient has no risk factors for PE. I do not believe patient warrants a CT angiogram at this time. Differential Diagnosis Differential Diagnoses: The differential diagnosis associated with the presentation includes (See above) Admission/Observation Consideration of admission/observation: Escalation of care including admission/observation considered Lab Data MDM Lab Attestation statement: I reviewed the patient's lab results. 03/23/23 21:59 03/23/23 21:59 Labs: Lab Results 03/23/23 Range/Units 21:59 WBC 13.2 H (4.8-10.8) X10*3/uL RBC 4.50 (4.20-5.50) X10*6/uL Hgb 13.3 (12.0-16.0) g/dl Hct 40.5 (37.0-47.0) % MCV 90.0 (80.0-98.0) fL MCH 29.6 (27.0-33.0) pg MCHC 32.8 (31.0-35.0) g/dl RDW 13.4 (11.0-16.0) % Plt Count 233 (160-400) X10*3/uL MPV 9.4 (9.4-12.3) fL Absolute Nucleated RBC 0.000 (0.0-0.012) X10*3/uL Nucleated RBC % (auto) 0.0 (0.0-0.2) /100WBC Sodium 142 (135-145) mmol/L Potassium 3.7 (3.3-5.1) mmol/L Chloride 104 (96-108) mmol/L Carbon Dioxide 28 (22-29) mmol/L Anion Gap 14 (12-20) BUN 10 (9-16) mg/dL Creatinine 0.96 (0.5-1.4) mg/dL Estim Creat Clear Calc 62.4 Estimated GFR > 60 Random Glucose 94 (60-115) mg/dL Calcium 9.7 (8.4-10.2) mg/dL Total Bilirubin 0.5 (0.0-1.0) mg/dL AST 16 (5-31) U/L ALT 6 (0-31) U/L Alkaline Phosphatase 53 (39-117) U/L Troponin I High Sens < 2.7 (<3.5-17.0) ng/L Total Protein 7.6 (6.5-8.0) g/dL Albumin 4.5 (3.5-5.0) g/dL Independent Interpretation I performed an independent interpretation of an: EKG (Normal sinus rhythm heart rate 97, no acute ST elevations depressions, no evidence of right heart strain, normal intervals) External Record Review External record reviewed: Outpatient record Prescription Management I considered prescription management with: Pain Medication Chronic Conditions Patient?s care impacted by: Other (Drug use) Discharge Plan Discharge Clinical Impression: Atypical chest pain Patient Disposition: Home, Self-Care Instructions: Chest Pain (DC) Prescriptions: New meloxicam 15 mg tablet 15 mg PO DAILY Qty: 20 0RF omeprazole 40 mg capsule,delayed release(DR/EC) 40 mg PO DAILY Qty: 20 0RF famotidine 20 mg tablet 20 mg PO BEDTIME Qty: 20 0RF Discontinued naproxen 500 mg tablet 500 mg PO BID 14 Days Qty: 28 0RF famotidine 20 mg tablet 20 mg PO BID Qty: 30 0RF Referrals: Santiago Olea MD [Physician] - 1 week Chad Rees MD [Physician] - 1 week
== END 2023-03-24 03:34 | disposition home or self-care (01) ==
PROVIDERS: Emergency Provider Emergency Medicine; PCP Internal Medicine Geriatric Medicine
DX: R07.89 Other chest pain (principal); Z79.899 Other long term (current) drug therapy; F11.10 Opioid abuse, uncomplicated
CPT/HCPCS: 36415; 80053; 84484; 85027; 93005; 99283; 99284

== ENCOUNTER 2023-03-24 17:24 | Emergency (ER) | payer MEDICAID, SELFPAY ==
--- NOTE | 2023-03-24 | ECG_ITS ---
Test Reason : CHEST DISCOMFORT Blood Pressure : / mmHG Vent. Rate : 080 BPM Atrial Rate : 080 BPM P-R Int : 138 ms QRS Dur : 088 ms QT Int : 364 ms P-R-T Axes : 061 066 063 degrees QTc Int : 419 ms Normal sinus rhythm Normal ECG When compared with ECG of 23-MAR-2023 21:49, No significant change was found Referred By: Generic ED Physician Electronically Signed By:NERI ROBLES
--- NOTE | ~2023-03-24 | XR_ITS ---
EXAMINATION: XR CHEST CLINICAL INFORMATION: Chest discomfort. COMPARISON: Chest radiograph dated 03/11/2023. TECHNIQUE: Frontal view of the chest was obtained. FINDINGS: No significant abnormality is noted involving the heart, lungs, mediastinum, bony thorax or soft tissues. XR/XR chest 1V IMPRESSION: Unremarkable examination.
[2023-03-24 17:52] VITALS: BP 131/83; PULSE 76; RESP 18; TEMP 36.5; O2SAT 96; BMI 17.7
--- NOTE | 2023-03-24 18:07 | PC.NURSE ---
pt brought back from waiting room. pt continues to c/o chest pain 7/10 at this time. talking well. taking ecg by tech
--- NOTE | 2023-03-24 18:32 | ED.GENADULT ---
HPI - General Adult General Chief complaint: General Medical Stated complaint: Chest pain Time Seen by Provider: 03/24/23 18:11 Source: patient Mode of arrival: ambulatory Limitations: no limitations History of Present Illness HPI narrative: 27 year old female with history significant for heroin and opioid abuse, presents to the ED with chest pain worse with breathing x3 weeks. Patient has had multiple ED evaluations over the past month for same symptoms. Was seen in our ED yesterday and prescribed meloxicam for costochondritis and omeprazole for GERD. Patient reports picking up these prescriptions yesterday however has not taken them. Returns today with continued chest pain worse with breathing and palpation of chest wall. Patient endorses smoking tobacco. Denies illicit drug use. Denies trauma, injury, or falls. Denies fever, chills, dizziness, shortness of breath, N/V, abdominal pain, or LE pain/ swelling. No known sick contacts. Related Data Previous Rx's Medication Instructions Recorded cyclobenzaprine 10 mg tablet 10 mg PO BEDTIME PRN muscle spasm 03/24/23 #7 tabs famotidine 20 mg tablet 20 mg PO BEDTIME #20 tabs 03/24/23 meloxicam 15 mg tablet 15 mg PO DAILY #20 tabs 03/24/23 omeprazole 40 mg capsule,delayed 40 mg PO DAILY #20 caps 03/24/23 release prednisone 20 mg tablet 40 mg (2 x 20 mg) PO DAILY 5 days 03/24/23 #10 tabs Allergies Allergy/AdvReac Type Severity Reaction Status Date / Time No Known Allergies Allergy Verified 03/24/23 17:52 [No Known Allergies*] Review of Systems Review of Systems: Constitutional: No fever, chills, fatigue, night sweats, weight changes ENT/Mouth: No ear pain, hearing loss, nasal congestion, sinus pain, rhinorrhea, sore throat Eyes: No eye pain, swelling, redness, vision changes, discharge Cardio: + chest pain, No palpitations, MAX, orthopnea, peripheral edema Pulm: No SOB, cough, sputum, wheezing, dyspnea, hemoptysis GI: No nausea, vomiting, hematemesis, abdominal pain, diarrhea, constipation, hematochezia, melena : No irregular bleeding, dysuria, frequency, urgency, hesitancy, hematuria, flank pain, urinary flow changes, urinary incontinence or retention MSK: No back pain, neck pain, joint pain, myalgias Skin: No lesions, rashes Neuro: No weakness, numbness, paresthesias, LOC, dizziness, headache All other systems reviewed and are negative. [facility] Past Medical History Attestation statement: The following information was validated with the patient. Source: old records reviewed and nursing notes reviewed Medical History Opiate abuse, continuous No known health problems Social History Social History Alcohol intake: never Patient Tobacco Use Status: Tobacco use Unknown Substance Use Type: Heroin Advance Directives: No Advance Directives Information Provided: Yes Physical Exam ED Vital Signs: Vital Signs - 24 hr 03/24/23 17:52 Temperature 97.7 F Pulse Rate 76 Respiratory Rate 18 Blood Pressure 131/83 Pulse Oximetry 96 Oxygen Delivery Method Room Air BMI result Body Mass Index 17.7 Const General: cooperative, no acute distress, alert and awake Orientation/consciousness: patient oriented x3 Limitations: no limitations HENMT Head: Yes normal to inspection Ears: hearing grossly normal bilaterally General nose exam: Normal external nose present Eyes General: appearance normal, both eyes and all related structures Pupils: Equal, round and reactive pupils present Neck Neck: Yes normal visual inspection and Yes no meningeal signs Chest Other: + anterior chest wall diffusely tender to palpation without deformity or crepitus Chest palpation & inspection: normal inspection of the chest Resp Effort & Inspection: normal respiratory effort, able to speak in complete sentences, no audible wheezes, not labored, no nasal flaring, no pursed lip breathing, no respiratory distress, no retractions, no stridor, not tachypneic, no tracheal deviation, no tripod positioning and symmetric chest movement Auscultation: clear to auscultation bilaterally, no crackles, no rales, no rhonchi and no wheezes Cardio Rate: regular rate Rhythm: regular rhythm Heart sounds: S1 normal heart sound present and S2 normal heart sound present Peripheral pulses: Peripheral pulses 2+ throughout GI Inspection: Yes normal to inspection Palpation (GI): Soft to palpation, nontender, no guarding and No Rebound tenderness present Skin General skin exam: no rashes or lesions noted Neuro General: patient oriented x3, gait normal, moves all extremities and no meningeal signs Cranial nerves: Yes CN's II-XII intact bilaterally and Yes Equal, round and reactive pupils present Extrem Other: Negative rivera sign bilaterally. General: Yes normal to inspection and Yes full ROM Course Reevaluation(s) Reevaluation #1: 184-- Patient with normal cardiac workup yesterday. Discharge home with meloxicam for costochondritis along with omeprazole for GERD. Denies taking any medications since being discharged yesterday. Returns with continued symptoms. Will order D-dimer to rule out pulmonary embolism and chest x-ray to rule out pneumothorax. 1925-- Patient signed out to my colleague PARI Gee, pending labs and chest x-ray. Reevaluation #2: CBC appears to be around patient's baseline. No acute findings. Chemistry unremarkable. Troponin negative EKG nonischemic (EKG done at 1811 NSR ventricular rate of 80, VT normal, QRS normal, QT/QTC normal. EKG with no ST elevations or inversions concerning for acute ischemia), 0 heart score, no need for 2nd troponin. Dimer negative, perc nevgative. I did go and re-evaluate patient she states that chest wall pain is worse with palpation, worse with laying back. No recent illness. Likely costochondritis. Will discharge her home with prednisone, cyclobenzaprine. Will give a dose cyclobenzaprine here. Patient not driving home. Patient verbalizes understanding. She is on naproxen I encouraged her to continue taking naproxen. Time: 20:41 Medical Decision Making Medical Decision Making [facility] Narrative: 27 year old female with history significant for heroin and opioid abuse, presents to the ED with chest pain worse with breathing x3 weeks. VSS. Patient nontoxic appearing, in NAD. RRR. Lungs CTA b/l. Rivera sign negative. PERC 0. Heart score 0. Clinical concern for costochondritis vs pleuritis vs msk sprain/ strain vs pneumothorax. Unlikely ACS, arrhythmia, dissection. Unlikely PE, PNA, or pulmonary fibrosis. Unlikely rib fracture or flail chest. EKG/ labs ordered at triage. Will order CXR to r/o pneumothorax and d dimer to r/o PE. Differential Diagnosis Differential Diagnoses: The differential diagnosis associated with the presentation includes As above. Admission/Observation Not indicated. Lab Data [facility] Lab Attestation statement: I reviewed the patient's lab results. As above. 03/24/23 20:06 03/24/23 20:06 Labs: Lab Results 03/24/23 03/24/23 Range/Units 18:50 20:06 WBC 10.1 (4.8-10.8) X10*3/uL RBC 4.75 (4.20-5.50) X10*6/uL Hgb 14.0 (12.0-16.0) g/dl Hct 42.8 (37.0-47.0) % MCV 90.1 (80.0-98.0) fL MCH 29.5 (27.0-33.0) pg MCHC 32.7 (31.0-35.0) g/dl RDW 13.5 (11.0-16.0) % Plt Count 220 (160-400) X10*3/uL MPV 9.7 (9.4-12.3) fL Immature Gran % (Auto) 0.3 (0.0-0.4) % Neut % (Auto) 54.1 (45-73) % Lymph % (Auto) 35.8 (20-40) % [place] % (Auto) 5.3 (2-11) % Eos % (Auto) 3.8 (0-4) % Baso % (Auto) 0.7 (0-2) % Lymph # (Auto) 3.6 (1.2-4.9) X10*3/uL [place] # (Auto) 0.5 (0.1-1.2) X10*3/uL Eos # (Auto) 0.4 (0.0-0.4) X10*3/uL Baso # (Auto) 0.1 (0.0-0.2) X10*3/uL Abs Immat Gran (auto) 0.03 (0.00-0.03) X10*3/uL Absolute Neuts (auto) 5.5 (2.0-8.3) x10*3/uL Absolute Nucleated RBC 0.000 (0.0-0.012) X10*3/uL Nucleated RBC % (auto) 0.0 (0.0-0.2) /100WBC D-Dimer High Sensitivty < 150 NG/ML Sodium 142 (135-145) mmol/L Potassium 3.3 (3.3-5.1) mmol/L Chloride 105 (96-108) mmol/L Carbon Dioxide 28 (22-29) mmol/L Anion Gap 12 (12-20) BUN 10 (9-16) mg/dL Creatinine 0.84 (0.5-1.4) mg/dL Estim Creat Clear Calc 71.2 Estimated GFR > 60 Random Glucose 143 H (60-115) mg/dL Calcium 9.6 (8.4-10.2) mg/dL Total Bilirubin 0.5 (0.0-1.0) mg/dL AST 16 (5-31) U/L ALT 6 (0-31) U/L Alkaline Phosphatase 52 (39-117) U/L Troponin I High Sens < 2.7 (<3.5-17.0) ng/L Total Protein 8.0 (6.5-8.0) g/dL Albumin 4.6 (3.5-5.0) g/dL Independent Interpretation I performed an independent interpretation of an: EKG and Plain X-Ray Interpretation: EKG with NSR ventricular rate of 80, VT normal, QRS normal, QT/QTC normal. EKG with no ST elevations or inversions concerning for acute ischemia CXR without pneumothorax, agree with radiologist's interpretation. Radiology Impression Discussion of test interpretation with radiology: I have reviewed the radiologist's reading. Radiologist Impression: XR chest 1V IMPRESSION: Unremarkable examination. External Record Review External record reviewed: Inpatient record Prescription Management I considered prescription management with: Pain Medication and Other (steroid) Chronic Conditions Patient?s care impacted by: Other (polysubstance use ) Critical Care Time Critical Care Time Critical Care Time: No Discharge Plan Discharge Clinical Impression: Chest pain Patient Disposition: Home, Self-Care Instructions: Chest Pain (DC), Chest Wall Pain (ED) Additional Instructions: Take your medications as prescribed. If you were prescribed antibiotics today, it is important that you take your medication to their entirety, do not skip any doses, do not finish them early. Follow-up with your primary care provider this week. Return to the emergency department with new or worsening symptoms. Such as fevers, chills, chest pain, shortness of breath, nausea, vomiting, dizziness, headache, vision changes, lethargy In case of emergency call 911 Continue taking naproxen Cyclobenzaprine as a muscle relaxer that has been center pharmacy. Please take this as prescribed. Do not mix with sedatives, alcohol or anything that can make you sleepy. Do not drive or operate machinery while taking this XR/XR chest 1V IMPRESSION: Unremarkable examination. Prescriptions: New cyclobenzaprine 10 mg tablet 10 mg PO BEDTIME PRN (Reason: muscle spasm) Qty: 7 0RF prednisone 20 mg tablet 40 mg PO DAILY 5 Days Qty: 10 0RF No Action meloxicam 15 mg tablet 15 mg PO DAILY Qty: 20 0RF omeprazole 40 mg capsule,delayed release(DR/EC) 40 mg PO DAILY Qty: 20 0RF famotidine 20 mg tablet 20 mg PO BEDTIME Qty: 20 0RF Referrals: [facility] [Provider Group] - 2 days Name,MD Mann [Primary Care Provider] - 2 days Discharge Date/Time: 03/24/23 21:10
[2023-03-24 19:32] LABS: D Dimer High Sensitivity < 150 NG/ML
[2023-03-24 20:13] LABS: MANUAL DIFF FLAG NO
[2023-03-24 20:14] LABS: Basophils Absolute Auto 0.1 X10*3/uL (0.0-0.2); Basophils Percent Auto 0.7 % (0-2); Eosinophils Absolute Auto 0.4 X10*3/uL (0.0-0.4); Eosinophils Percent Auto 3.8 % (0-4); Hematocrit 42.8 % (37.0-47.0); Imm Gran Abs Auto 0.03 X10*3/uL (0.00-0.03); Imm Gran Pct Auto 0.3 % (0.0-0.4); Lymphocytes Absolute Auto 3.6 X10*3/uL (1.2-4.9); Lymphocytes Percent Auto 35.8 % (20-40); Mean Corpuscular HGB Conc 32.7 g/dl (31.0-35.0); Mean Corpuscular Hemoglobin 29.5 pg (27.0-33.0); Mean Corpuscular Volume 90.1 fL (80.0-98.0); Mean Platelet Volume 9.7 fL (9.4-12.3); Monocytes Absolute Auto 0.5 X10*3/uL (0.1-1.2); Monocytes Percent Auto 5.3 % (2-11); Neutrophils Absolute Auto 5.5 x10*3/uL (2.0-8.3); Neutrophils Percent Auto 54.1 % (45-73); Platelet Count 220 X10*3/uL (160-400); Red Blood Count 4.75 X10*6/uL (4.20-5.50); Red Cell Distribution Width 13.5 % (11.0-16.0); White Blood Count 10.1 X10*3/uL (4.8-10.8)
[2023-03-24 20:31] LABS: Alanine Aminotransferase 6 U/L (0-31); Albumin Level 4.6 g/dL (3.5-5.0); Alkaline Phosphatase 52 U/L (39-117); Anion Gap 12 (12-20); Aspartate Amino Transferase 16 U/L (5-31); Bilirubin Total 0.5 mg/dL (0.0-1.0); Blood Urea Nitrogen 10 mg/dL (9-16); Calcium 9.6 mg/dL (8.4-10.2); Carbon Dioxide 28 mmol/L (22-29); Chloride 105 mmol/L (96-108); Creatinine Clr Calc Pharmacy 71.2; Estimated Glomerular Filt Rate > 60; Glucose Random 143 mg/dL (60-115); Potassium 3.3 mmol/L (3.3-5.1); Sodium 142 mmol/L (135-145)
[2023-03-24 20:39] LABS: Troponin-I High Sensitivity < 2.7 ng/L (<3.5-17.0)
[2023-03-24] MEDS: Cyclobenzaprine HCl 10 MG TABLET PO (21:07)
== END 2023-03-24 21:10 | disposition home or self-care (01) ==
PROVIDERS: Physician Assistant; Physician Assistant Medical; Emergency Provider Emergency Medicine; PCP Internal Medicine Geriatric Medicine
DX: R07.9 Chest pain, unspecified (principal); F11.10 Opioid abuse, uncomplicated; Z79.899 Other long term (current) drug therapy
CPT/HCPCS: 36415; 71045; 80053; 84484; 85025; 85379; 93005; 99283

== ENCOUNTER 2023-03-25 20:33 | Emergency (ER) | payer MEDICAID, SELFPAY ==
--- NOTE | 2023-03-25 20:34 | ECG_ITS ---
Test Reason : CHEST PAIN Blood Pressure : / mmHG Vent. Rate : 093 BPM Atrial Rate : 093 BPM P-R Int : 146 ms QRS Dur : 088 ms QT Int : 344 ms P-R-T Axes : 077 062 066 degrees QTc Int : 427 ms Normal sinus rhythm Normal ECG When compared with ECG of 24-MAR-2023 18:11, No significant change was found Referred By: Leanne Horowitz Electronically Signed By:NERI ROBLES
[2023-03-25 21:18] VITALS: BP 131/84; PULSE 84; RESP 16; TEMP 36.7; O2SAT 100; BMI 17.7
[2023-03-25 22:12] LABS: Hematocrit 42.7 % (37.0-47.0); Hemoglobin 14.1 g/dl (12.0-16.0); Mean Corpuscular Hemoglobin 29.4 pg (27.0-33.0); Mean Corpuscular Volume 89.1 fL (80.0-98.0); Mean Platelet Volume 9.4 fL (9.4-12.3); Platelet Count 244 X10*3/uL (160-400); Red Blood Count 4.79 X10*6/uL (4.20-5.50); Red Cell Distribution Width 13.4 % (11.0-16.0); White Blood Count 11.6 X10*3/uL (4.8-10.8)
[2023-03-25 22:24] LABS: Anion Gap 13 (12-20); Blood Urea Nitrogen 9 mg/dL (9-16); Calcium 9.8 mg/dL (8.4-10.2); Carbon Dioxide 29 mmol/L (22-29); Chloride 105 mmol/L (96-108); Estimated Glomerular Filt Rate > 60; Glucose Random 99 mg/dL (60-115); Potassium 3.6 mmol/L (3.3-5.1); Sodium 143 mmol/L (135-145)
[2023-03-25 22:33] LABS: Troponin-I High Sensitivity < 2.7 ng/L (<3.5-17.0)
--- NOTE | 2023-03-26 00:16 | ED_ITS ---
HPI - Chest Pain General Chief Complaint: Chest Pain Stated Complaint: chest pain Time Seen by Provider: 03/26/23 00:08 Source: patient Mode of arrival: ambulatory Limitations: no limitations History of Present Illness HPI narrative: Patient 27 years overall no significant past medical history been here 7 times in last 2 weeks for chest pain which is localized to left side patient had multiple labs done D-dimer negative high sensitive troponin negative multiple times without any EKG changes comes in with same pain which is going on for last few days patient was here yesterday 2 times for same denies any anxiety or shortness of breath labs done prior to my evaluation was with normal high sensitive troponin and EKG Related Data Previous Rx's Medication Instructions Recorded cyclobenzaprine 10 mg tablet 10 mg PO BEDTIME PRN muscle spasm 03/24/23 #7 tabs famotidine 20 mg tablet 20 mg PO BEDTIME #20 tabs 03/24/23 meloxicam 15 mg tablet 15 mg PO DAILY #20 tabs 03/24/23 omeprazole 40 mg capsule,delayed 40 mg PO DAILY #20 caps 03/24/23 release prednisone 20 mg tablet 40 mg (2 x 20 mg) PO DAILY 5 days 03/24/23 #10 tabs Allergies Allergy/AdvReac Type Severity Reaction Status Date / Time No Known Allergies Allergy Verified 03/25/23 21:18 [No Known Allergies*] Review of Systems 2 Review of Systems: Yes all other systems are reviewed and are negative PMFSH Past Medical History Medical History Opiate abuse, continuous No known health problems Social History Social History Alcohol intake: never Patient Tobacco Use Status: Tobacco use Unknown Substance Use Type: Heroin Advance Directives: No Advance Directives Information Provided: Yes Physical Exam 2 Vital Signs: Vital Signs: Last Vital Signs Temp 98.1 F 03/25/23 21:18 Pulse 84 03/25/23 21:18 Resp 16 03/25/23 21:18 BP 131/84 03/25/23 21:18 Pulse Ox 100 03/25/23 21:18 O2 Del Method Room Air 03/25/23 21:18 BMI result Body Mass Index 17.7 Appearance: Alert. Oriented X3. No acute distress. Anxious Eyes: PERRLA, No Nystagmus ENT: Pharynx normal. Oral Mucosa moist Neck: Normal inspection. Neck supple. CVS: Normal heart rate and rhythm. Pulses normal. No murmur rub or gallop Respiratory: No respiratory distress. Equal air entry bilateral, no wheezing/rales/rhonchi left chest wall tenderness Abdomen: Soft and nontender. Bowel sounds are present, no mass palpable, no CVA tenderness Skin: Skin warm and dry. Normal skin color. Normal skin turgor. Extremities: No lower extremity edema. No calf tenderness Neuro: Oriented X 3. Medical Decision Making Medical Decision Making [facility] Narrative: Patient has multiple visits with atypical chest pain likely costochondritis discharge patient home advised to continue same medication as before Differential Diagnosis Differential Diagnoses: The differential diagnosis associated with the presentation includes Anxiety/costochondritis/atypical chest pain Lab Data [facility] Lab Attestation statement: I reviewed the patient's lab results. 03/25/23 22:06 03/25/23 22:06 Labs: Lab Results 03/25/23 Range/Units 22:06 WBC 11.6 H (4.8-10.8) X10*3/uL RBC 4.79 (4.20-5.50) X10*6/uL Hgb 14.1 (12.0-16.0) g/dl Hct 42.7 (37.0-47.0) % MCV 89.1 (80.0-98.0) fL MCH 29.4 (27.0-33.0) pg MCHC 33.0 (31.0-35.0) g/dl RDW 13.4 (11.0-16.0) % Plt Count 244 (160-400) X10*3/uL MPV 9.4 (9.4-12.3) fL Absolute Nucleated RBC 0.000 (0.0-0.012) X10*3/uL Nucleated RBC % (auto) 0.0 (0.0-0.2) /100WBC Sodium 143 (135-145) mmol/L Potassium 3.6 (3.3-5.1) mmol/L Chloride 105 (96-108) mmol/L Carbon Dioxide 29 (22-29) mmol/L Anion Gap 13 (12-20) BUN 9 (9-16) mg/dL Creatinine 0.74 (0.5-1.4) mg/dL Estim Creat Clear Calc 81.0 Estimated GFR > 60 Random Glucose 99 (60-115) mg/dL Calcium 9.8 (8.4-10.2) mg/dL Troponin I High Sens < 2.7 (<3.5-17.0) ng/L Independent Interpretation I performed an independent interpretation of an: EKG Interpretation: Normal sinus rhythm heart rate 93 beats per minute normal intervals normal axis no acute ST-T change and no acute ischemia Discharge Plan Discharge Clinical Impression: Costalchondritis Patient Disposition: Home, Self-Care Instructions: Costochondritis (ED) Additional Instructions: Your pain is not from the heart please follow-up with PCP Take pain medication as prescribed in previous visits for pain as needed Prescriptions: No Action meloxicam 15 mg tablet 15 mg PO DAILY Qty: 20 0RF omeprazole 40 mg capsule,delayed release(DR/EC) 40 mg PO DAILY Qty: 20 0RF famotidine 20 mg tablet 20 mg PO BEDTIME Qty: 20 0RF cyclobenzaprine 10 mg tablet 10 mg PO BEDTIME PRN (Reason: muscle spasm) Qty: 7 0RF prednisone 20 mg tablet 40 mg PO DAILY 5 Days Qty: 10 0RF
== END 2023-03-26 01:05 | disposition home or self-care (01) ==
PROVIDERS: Emergency Provider Internal Medicine; PCP Internal Medicine Geriatric Medicine
DX: M94.0 Chondrocostal junction syndrome [Tietze] (principal); Z79.899 Other long term (current) drug therapy
CPT/HCPCS: 36415; 80048; 84484; 85027; 93005; 99283; 99284

== ENCOUNTER 2023-03-26 13:44 | Outpatient (REF) | payer MEDICAID, SELFPAY ==
[2023-03-27 03:36] LABS: CT PCR NOT DETECTED (Not Detect.); NG PCR NOT DETECTED (Not Detect.)
== END 2023-03-26 13:45 | disposition home or self-care (01) ==
LOC: HO.HHCL 13:44
PROVIDERS: Visit Provider Internal Medicine
DX: Z11.3 Encounter for screening for infections with a predominantly sexual mode of transmission (principal)
CPT/HCPCS: 0353U

== ENCOUNTER 2023-04-01 21:25 | Emergency (ER) | payer MEDICAID, SELFPAY ==
--- NOTE | 2023-04-01 | ECG_ITS ---
Test Reason : PALAPATATION Blood Pressure : / mmHG Vent. Rate : 096 BPM Atrial Rate : 096 BPM P-R Int : 144 ms QRS Dur : 086 ms QT Int : 358 ms P-R-T Axes : 077 053 061 degrees QTc Int : 452 ms Normal sinus rhythm Normal ECG When compared with ECG of 25-MAR-2023 20:39, No significant change was found Referred By: Generic ED Physician Electronically Signed By:LINDSAY COLMENARES MD
[2023-04-01 21:34] VITALS: BP 130/86; BP 99/71; PULSE 108; PULSE 91; RESP 18; TEMP 36.6; O2SAT 97; O2SAT 98; BMI 18.4
[2023-04-02 02:14] VITALS: BP 108/81; PULSE 92; RESP 18; TEMP 36.8; O2SAT 99
--- NOTE | 2023-04-02 02:18 | MHC.EDTECH ---
Hourly rounds and vitals completed,awaiting provider at this time.
--- NOTE | 2023-04-02 03:09 | PC.NURSE ---
Pt left ER without informing staff. Bed was found empty, as well as surrounding rooms and bathrooms. Charge nurse and MD aware.
== END 2023-04-02 03:10 | disposition left against medical advice (07) ==
PROVIDERS: Emergency Provider Emergency Medicine; PCP Internal Medicine Geriatric Medicine
DX: R00.2 Palpitations (principal); F41.9 Anxiety disorder, unspecified
CPT/HCPCS: 93005; 99283; 99284

== ENCOUNTER 2023-04-07 15:05 | Emergency (ER) | payer MEDICAID, SELFPAY ==
--- NOTE | ~2023-04-07 | XR_ITS ---
EXAMINATION: XR CHEST CLINICAL INFORMATION: Chest pain. COMPARISON: 03/24/2023. TECHNIQUE: Frontal view of the chest was obtained. FINDINGS: The cardiomediastinal silhouette is normal. There is no focal lung consolidation or pleural effusion. The bony structures and soft tissues are unremarkable. XR/XR chest 1V IMPRESSION: No active cardiopulmonary disease.
[2023-04-07 15:09] VITALS: BP 122/88; PULSE 98; O2SAT 99
--- NOTE | 2023-04-07 15:09 | ECG_ITS ---
Test Reason : CHEST PAIN Blood Pressure : / mmHG Vent. Rate : 091 BPM Atrial Rate : 091 BPM P-R Int : 154 ms QRS Dur : 086 ms QT Int : 358 ms P-R-T Axes : 076 070 068 degrees QTc Int : 440 ms Normal sinus rhythm Normal ECG When compared with ECG of 01-APR-2023 21:33, No significant change was found Referred By: Jayesh Hearn Electronically Signed By:LINDSAY COLMENARES MD
--- NOTE | 2023-04-07 15:12 | ED_ITS ---
HPI - General Adult General Chief complaint: Chest Pain Stated complaint: CHEST TIGHTNESS PER EMS Time Seen by Provider: 04/07/23 21:51 Source: patient Mode of arrival: ambulatory Limitations: no limitations History of Present Illness HPI narrative: 27 yo female with opiate use disorder with 8 visits here for chest pain since February 2023 negative ddimer and troponins normal CXR who comes back again with the same. She states it feels tight to her. Was seen at [facility] and told to come back for abnormal lab 04/06 visit but not sure what that meant. She states her chest always feels tight. She uses cocaine sometimes but denies IVDA though some notes state she might still be using. Called [facility] - CT chest with IV contrast normal, trop flat, ddimer flat complaint: chest pain Onset (ago): month(s) (2) Location: chest Radiation: non-radiation Severity: moderate Quality: other (tightness) Pain Consistency: intermittent Relieving factors: none Exacerbating factors: movement Associated symptoms: shortness of breath Treatments prior to arrival: none Related Data Previous Rx's Medication Instructions Recorded cyclobenzaprine 10 mg tablet 10 mg PO BEDTIME PRN muscle spasm 03/24/23 #7 tabs famotidine 20 mg tablet 20 mg PO BEDTIME #20 tabs 03/24/23 meloxicam 15 mg tablet 15 mg PO DAILY #20 tabs 03/24/23 omeprazole 40 mg capsule,delayed 40 mg PO DAILY #20 caps 03/24/23 release prednisone 20 mg tablet 40 mg (2 x 20 mg) PO DAILY 5 days 03/24/23 #10 tabs Allergies Allergy/AdvReac Type Severity Reaction Status Date / Time No Known Allergies Allergy Verified 03/25/23 21:18 [No Known Allergies*] Review of Systems 2 Review of Systems: Constitutional : No Weight loss, No Fever, No Chills Cardiovascular : pos Chest Pain, pos SOB, no Dyspnea on Exertion, No Orthopnea, No Edema, No Palpitations Respiratory : No Cough, No Sputum Gastrointestinal : no Nausea, No Vomiting, No Diarrhea, No abdominal Pain, No Hematochezia, No Melena Genitourinary : No Dysuria, No Urinary Frequency Musculoskeletal : No joint pain, No Myalgias, No Joint Swelling Skin : No Skin Lesions, No rash Neuro : No Weakness, No Numbness, No Dizziness, No Headache Psych : No Anxiety/Panic, No Depression All other systems reviewed and are negative [facility] Past Medical History Attestation statement: The following information was validated with the patient. Source: old records reviewed Medical History (Updated 04/08/23 @ 00:01 by Latrell Cantu) Asthma Opiate abuse, continuous No known health problems Social History Social History Alcohol intake: never Patient Tobacco Use Status: Tobacco use Unknown Substance Use Type: Heroin Advance Directives: No Advance Directives Information Provided: Yes Physical Exam ED Vital Signs: Vital Signs - 24 hr 04/07/23 15:33 04/07/23 20:41 Temperature 98.1 F 97.5 F Pulse Rate 91 108 H Respiratory Rate 16 18 Blood Pressure 112/74 116/79 Pulse Oximetry 100 98 Oxygen Delivery Method Room Air Room Air BMI result Body Mass Index 18.3 Appearance: Alert. Oriented X3. No acute distress. Eyes: Pupils equal, round and reactive to light. ENT: Pharynx normal. Neck: Normal inspection. Neck supple. CVS: Normal heart rate and rhythm. Pulses normal. Respiratory: No respiratory distress. Breath sounds normal. Abdomen: Soft and nontender. Skin: Skin warm and dry. Normal skin color. Normal skin turgor. Extremities: No lower extremity edema. No calf ttp Neuro: Oriented X 3. No motor deficit. No sensory deficit. Course Course Course Narrative: This is an RME: Additional HPI, ROS, PE not included below will be deferred to primary provider. 27 yo f presents w/ compalints of cp, palpitaitons since yesterday. Went to [facility] left and got a call from [facility] telling her to return to the ED. Sx on going x 2 days no hx of heart disease or PE/DVT Plan- labs, ekg Reevaluation(s) Reevaluation #1: after much discussion the patient just needs education about the left lung nodule 2mm and how she needs to follow up that was the cause of the visit. Medications Administered Discontinued Medications Generic Name Dose Route Start Last Admin Trade Name Freq PRN Reason Stop Dose Admin Acetaminophen 650 mg 04/07/23 17:52 04/07/23 17:55 Acetaminophen 325 Mg Tablet PO 04/07/23 17:53 650 mg ONCE ONE Administration Medical Decision Making Medical Decision Making MDM Narrative: 27 yo female with PMH of chest pain and frequent visits for same, multiple negative CXR, ddimer, negative troponin and CT scan yesterday - she states she had abnormal labs at [facility] and was told to come back but I see no abnormal labs on medical chart sent over and her CT Scan report was normal, no cultures sent off. At this time will DC home with repeat workup negative again. Will refer back to PCP. Differential Diagnosis Differential Diagnoses: The differential diagnosis associated with the presentation includes atypical chest pain, reactive airway disease Admission/Observation Consideration of admission/observation: Escalation of care including admission/observation considered trop flat no ACS risk factors stable for DC Lab Data MDM Lab Attestation statement: I reviewed the patient's lab results. 04/07/23 15:27 04/07/23 15:27 Labs: Lab Results 04/07/23 Range/Units 15:27 WBC 9.0 (4.8-10.8) X10*3/uL RBC 4.20 (4.20-5.50) X10*6/uL Hgb 12.5 (12.0-16.0) g/dl Hct 37.9 (37.0-47.0) % MCV 90.2 (80.0-98.0) fL MCH 29.8 (27.0-33.0) pg MCHC 33.0 (31.0-35.0) g/dl RDW 13.6 (11.0-16.0) % Plt Count 257 (160-400) X10*3/uL MPV 9.1 L (9.4-12.3) fL Immature Gran % (Auto) 0.2 (0.0-0.4) % Neut % (Auto) 59.7 (45-73) % Lymph % (Auto) 28.4 (20-40) % [place] % (Auto) 8.0 (2-11) % Eos % (Auto) 3.0 (0-4) % Baso % (Auto) 0.7 (0-2) % Lymph # (Auto) 2.6 (1.2-4.9) X10*3/uL [place] # (Auto) 0.7 (0.1-1.2) X10*3/uL Eos # (Auto) 0.3 (0.0-0.4) X10*3/uL Baso # (Auto) 0.1 (0.0-0.2) X10*3/uL Abs Immat Gran (auto) 0.02 (0.00-0.03) X10*3/uL Absolute Neuts (auto) 5.4 (2.0-8.3) x10*3/uL Absolute Nucleated RBC 0.000 (0.0-0.012) X10*3/uL Nucleated RBC % (auto) 0.0 (0.0-0.2) /100WBC PT 12.8 (11.1-13.3) SEC INR 1.1 (0.9-1.1) Sodium 141 (135-145) mmol/L Potassium 3.4 (3.3-5.1) mmol/L Chloride 106 (96-108) mmol/L Carbon Dioxide 26 (22-29) mmol/L Anion Gap 12 (12-20) BUN 8 L (9-16) mg/dL Creatinine 0.65 (0.5-1.4) mg/dL Estim Creat Clear Calc 95.2 Estimated GFR > 60 Random Glucose 105 (60-115) mg/dL Calcium 9.2 D (8.4-10.2) mg/dL Magnesium 2.0 (1.6-2.6) mg/dL Total Bilirubin 0.5 (0.0-1.0) mg/dL AST 13 (5-31) U/L ALT 9 (0-31) U/L Alkaline Phosphatase 56 (39-117) U/L Troponin I High Sens < 2.7 (<3.5-17.0) ng/L Total Protein 7.8 (6.5-8.0) g/dL Albumin 4.4 (3.5-5.0) g/dL Beta HCG, Quant < 2 mIU/mL Independent Interpretation I performed an independent interpretation of an: EKG and Plain X-Ray (normal ) Interpretation: Rate: 91 Rhythm: NSR [place]: normal Normal P waves. Normal [place]ISE[place]. Normal QRS complex. ST T wave : normal no KITTY qTC: normal prior studies: no acute ischemia The study has been interpreted contemporaneously by me. . Radiology Impression Discussion of test interpretation with radiology: I have reviewed the radiologist's reading. External Record Review External record reviewed: Inpatient record and Prior outpatient labs Discharge Plan Discharge Clinical Impression: Atypical chest pain Patient Disposition: Home, Self-Care Instructions: Chest Wall Pain (ED) Additional Instructions: tests here are normal, your tests at [facility] that we called and received are including CT scan of chest are normal - no acute findings you can [facility] to be sure but at this time no acute findings. please follow up with your doctor about this and ask for cardiology referral at this time. return for faintning, worsening symptoms, difficulty breathing, blue skin or any other concerns. Prescriptions: No Action meloxicam 15 mg tablet 15 mg PO DAILY Qty: 20 0RF omeprazole 40 mg capsule,delayed release(DR/EC) 40 mg PO DAILY Qty: 20 0RF famotidine 20 mg tablet 20 mg PO BEDTIME Qty: 20 0RF cyclobenzaprine 10 mg tablet 10 mg PO BEDTIME PRN (Reason: muscle spasm) Qty: 7 0RF prednisone 20 mg tablet 40 mg PO DAILY 5 Days Qty: 10 0RF Interventions: ED Discharge Assessment Last Done: 04/07/23 22:26 Discharge Date/Time: 04/07/23 22:28
[2023-04-07 15:31] LABS: MANUAL DIFF FLAG NO
[2023-04-07 15:33] VITALS: BP 112/74; PULSE 91; RESP 16; TEMP 36.7; O2SAT 100; BMI 18.3
[2023-04-07 15:33] LABS: Basophils Absolute Auto 0.1 X10*3/uL (0.0-0.2); Basophils Percent Auto 0.7 % (0-2); Eosinophils Absolute Auto 0.3 X10*3/uL (0.0-0.4); Hematocrit 37.9 % (37.0-47.0); Hemoglobin 12.5 g/dl (12.0-16.0); Imm Gran Abs Auto 0.02 X10*3/uL (0.00-0.03); Imm Gran Pct Auto 0.2 % (0.0-0.4); Lymphocytes Absolute Auto 2.6 X10*3/uL (1.2-4.9); Lymphocytes Percent Auto 28.4 % (20-40); Mean Corpuscular Hemoglobin 29.8 pg (27.0-33.0); Mean Corpuscular Volume 90.2 fL (80.0-98.0); Mean Platelet Volume 9.1 fL (9.4-12.3); Monocytes Absolute Auto 0.7 X10*3/uL (0.1-1.2); Neutrophils Absolute Auto 5.4 x10*3/uL (2.0-8.3); Neutrophils Percent Auto 59.7 % (45-73); Platelet Count 257 X10*3/uL (160-400); Red Cell Distribution Width 13.6 % (11.0-16.0)
[2023-04-07 15:39] LABS: INTERNATIONAL NORM RATIO 1.1 (0.9-1.1); Prothrombin Time 12.8 SEC (11.1-13.3)
[2023-04-07 15:49] LABS: Alanine Aminotransferase 9 U/L (0-31); Albumin Level 4.4 g/dL (3.5-5.0); Alkaline Phosphatase 56 U/L (39-117); Anion Gap 12 (12-20); Aspartate Amino Transferase 13 U/L (5-31); Bilirubin Total 0.5 mg/dL (0.0-1.0); Blood Urea Nitrogen 8 mg/dL (9-16); Calcium 9.2 mg/dL (8.4-10.2); Carbon Dioxide 26 mmol/L (22-29); Chloride 106 mmol/L (96-108); Creatinine Clr Calc Pharmacy 95.2; Estimated Glomerular Filt Rate > 60; Glucose Random 105 mg/dL (60-115); Potassium 3.4 mmol/L (3.3-5.1); Sodium 141 mmol/L (135-145); Total Protein 7.8 g/dL (6.5-8.0)
[2023-04-07 15:57] LABS: HCG Quantitative < 2 mIU/mL
[2023-04-07 15:58] LABS: Troponin-I High Sensitivity < 2.7 ng/L (<3.5-17.0)
[2023-04-07] MEDS: Acetaminophen 325 MG TABLET 650 MG PO (17:55)
[2023-04-07 20:41] VITALS: BP 116/79; PULSE 108; RESP 18; TEMP 36.4; O2SAT 98
== END 2023-04-07 22:28 | disposition home or self-care (01) ==
PROVIDERS: Physician Assistant; Emergency Provider Emergency Medicine
DX: R07.89 Other chest pain (principal); F11.20 Opioid dependence, uncomplicated; Z79.899 Other long term (current) drug therapy
CPT/HCPCS: 36415; 71045; 80053; 83735; 84484; 84702; 85025; 85610; 93005; 99283

== ENCOUNTER 2023-04-17 10:10 | Outpatient (REF) | payer MEDICAID, SELFPAY ==
[2023-04-17 12:09] LABS: Alanine Aminotransferase 8 U/L (0-31); Albumin Level 4.4 g/dL (3.5-5.0); Alkaline Phosphatase 58 U/L (39-117); Aspartate Amino Transferase 14 U/L (5-31); Bilirubin Direct 0.2 mg/dL (0.0-0.5); Bilirubin Total 0.4 mg/dL (0.0-1.0); Total Protein 7.5 g/dL (6.5-8.0)
[2023-04-18 03:43] LABS: HIV AB/AG Nonreactive (Nonreactive); HIV Num 1 0.05 S/CO (0.00-0.99)
[2023-04-20 00:04] LABS: TS Negative Control Passed; TS Panel A 2; TS Panel B 4; TS Positive Control Passed; TSpotTB Negative (Negative)
[2023-04-20 13:33] LABS: RPR Rapid Plasma Reagin NON-REACTIVE (NON-REACTIVE)
== END 2023-04-17 10:11 | disposition home or self-care (01) ==
LOC: HO.HHCL 10:10
PROVIDERS: Visit Provider Internal Medicine
DX: Z11.4 Encounter for screening for human immunodeficiency virus [HIV] (principal); Z11.3 Encounter for screening for infections with a predominantly sexual mode of transmission; Z11.1 Encounter for screening for respiratory tuberculosis
CPT/HCPCS: 36415; 80076; 86481; 86592; 87389

== ENCOUNTER 2023-05-11 18:57 | Emergency (ER) | payer MEDICAID, SELFPAY ==
--- NOTE | ~2023-05-11 | XR_ITS ---
EXAMINATION: XR CHEST 2 VIEW CLINICAL INFORMATION: Chest pain COMPARISON: 04/07/2023 TECHNIQUE: PA and lateral views of the chest obtained. FINDINGS: The lungs are clear. There are no pleural effusions. The cardiomediastinal silhouette is normal. XR/XR chest 2V IMPRESSION: No acute cardiopulmonary disease.
--- NOTE | 2023-05-11 18:58 | ECG_ITS ---
Test Reason : CHEST PAIN Blood Pressure : / mmHG Vent. Rate : 086 BPM Atrial Rate : 086 BPM P-R Int : 144 ms QRS Dur : 082 ms QT Int : 360 ms P-R-T Axes : 075 054 057 degrees QTc Int : 430 ms Normal sinus rhythm Normal ECG No significant changes seen Referred By: Vibha Oliveira Electronically Signed By:LINDSAY COLMENARES MD
[2023-05-11 19:11] VITALS: BP 97/68; PULSE 64; RESP 14; TEMP 36.9; BMI 19.8
--- NOTE | 2023-05-11 19:12 | ED.GENADULT ---
HPI - General Adult General Chief complaint: Chest Pain Stated complaint: chest pain Time Seen by Provider: 05/11/23 21:08 Related Data Home Medications Medication Instructions Recorded Confirmed zolpidem 10 mg tablet 1 tab PO BEDTIME 01/15/21 01/15/21 Previous Rx's Medication Instructions Recorded amoxicillin 875 mg-potassium 1 tab PO BID #9 tabs 01/17/21 clavulanate 125 mg tablet (Augmentin) buprenorphine 4 mg-naloxone 1 mg 1 film sublingual BID 7 days #14 ea 01/17/21 sublingual film (Suboxone) fluoxetine 20 mg capsule 20 mg PO DAILY #30 caps 01/17/21 cyclobenzaprine 10 mg tablet 10 mg PO BEDTIME PRN muscle spasm 03/24/23 #7 tabs famotidine 20 mg tablet 20 mg PO BEDTIME #20 tabs 03/24/23 meloxicam 15 mg tablet 15 mg PO DAILY #20 tabs 03/24/23 omeprazole 40 mg capsule,delayed 40 mg PO DAILY #20 caps 03/24/23 release prednisone 20 mg tablet 40 mg (2 x 20 mg) PO DAILY 5 days 03/24/23 #10 tabs Allergies Allergy/AdvReac Type Severity Reaction Status Date / Time No Known Allergies Allergy Verified 04/24/23 14:51 [No Known Allergies*] PMFSH Past Medical History Medical History Asthma Opiate abuse, continuous No known health problems Social History Household Members: None Housing: Apartment Do you presently have visiting nurse or other home services: No Alcohol intake: never Patient Tobacco Use Status: Current everyday Tobacco user Tobacco use type: Cigarette Cigarette Packs Per Day: 0.5 Cigarettes Per Day: 10.0 Substance Use Type: Heroin Advance Directives: No Advance Directives Information Provided: No service: No Current occupational status: employed Physical Exam ED Vital Signs: Vital Signs - 24 hr 05/11/23 19:11 05/11/23 21:05 05/11/23 22:00 Temperature 98.4 F 98.0 F Pulse Rate 64 93 78 Respiratory Rate 14 20 14 Blood Pressure 97/68 115/67 96/60 Pulse Oximetry 99 100 Oxygen Delivery Method Room Air Room Air BMI result Body Mass Index 19.8 Course Course Course Narrative: JUDYE performed by Vibha Oliveira PA-C. Patient is a 27 year old assigned female at presenting to the emergency department with chest pain. Labs, imaging, and swabs ordered. Patient placed back in the waiting room pending room availability and results. Patient was seen and dispositioned by Dr. Negron. Please see his note from 05/11/2023. Medications Administered Discontinued Medications Generic Name Dose Route Start Last Admin Trade Name Freq PRN Reason Stop Dose Admin Acetaminophen 650 mg 05/11/23 23:22 05/11/23 23:28 Acetaminophen 325 Mg Tablet PO 05/11/23 23:23 650 mg ONCE ONE Administration Medical Decision Making Lab Data 05/11/23 19:55 05/11/23 19:55 Labs: Lab Results 05/11/23 05/11/23 Range/Units 19:55 21:09 WBC 9.7 (4.8-10.8) X10*3/uL RBC 4.46 (4.20-5.50) X10*6/uL Hgb 13.2 (12.0-16.0) g/dl Hct 40.4 (37.0-47.0) % MCV 90.6 (80.0-98.0) fL MCH 29.6 (27.0-33.0) pg MCHC 32.7 (31.0-35.0) g/dl RDW 13.2 (11.0-16.0) % Plt Count 285 (160-400) X10*3/uL MPV 9.7 (9.4-12.3) fL Immature Gran % (Auto) 0.2 (0.0-0.4) % Neut % (Auto) 50.6 (45-73) % Lymph % (Auto) 38.6 (20-40) % [place] % (Auto) 6.4 (2-11) % Eos % (Auto) 3.5 (0-4) % Baso % (Auto) 0.7 (0-2) % Lymph # (Auto) 3.8 (1.2-4.9) X10*3/uL [place] # (Auto) 0.6 (0.1-1.2) X10*3/uL Eos # (Auto) 0.3 (0.0-0.4) X10*3/uL Baso # (Auto) 0.1 (0.0-0.2) X10*3/uL Abs Immat Gran (auto) 0.02 (0.00-0.03) X10*3/uL Absolute Neuts (auto) 4.9 (2.0-8.3) x10*3/uL Absolute Nucleated RBC 0.000 (0.0-0.012) X10*3/uL Nucleated RBC % (auto) 0.0 (0.0-0.2) /100WBC PT 12.6 (11.1-13.3) SEC INR 1.0 (0.9-1.1) APTT 36.0 (26.0-36.4) SEC Sodium 139 (135-145) mmol/L Potassium 3.3 (3.3-5.1) mmol/L Chloride 105 (96-108) mmol/L Carbon Dioxide 30 H (22-29) mmol/L Anion Gap 7 L (12-20) BUN 9 (9-16) mg/dL Creatinine 0.66 (0.5-1.4) mg/dL Estim Creat Clear Calc 95.3 Estimated GFR > 60 Random Glucose 87 (60-115) mg/dL Calcium 9.1 (8.4-10.2) mg/dL Magnesium 1.7 (1.6-2.6) mg/dL Total Bilirubin 0.6 (0.0-1.0) mg/dL AST 15 (5-31) U/L ALT 9 (0-31) U/L Alkaline Phosphatase 55 (39-117) U/L Troponin I High Sens < 2.7 (<3.5-17.0) ng/L Total Protein 7.8 (6.5-8.0) g/dL Albumin 4.4 (3.5-5.0) g/dL Urine Color Yellow Urine Appearance Cloudy Urine pH 5.5 (5.0-9.0) Ur Specific [place] >= 1.030 H (1.005-1.025) Urine Protein Negative (Neg-Trace) mg/dL Urine Glucose (UA) Negative (Negative) mg/dL Urine Ketones Negative (Negative) mg/dL Urine Blood Negative (Negative) Urine Nitrite Negative (Negative) Ur Leukocyte Esterase Negative (Negative) Influenza Type A (PCR) NEGATIVE (Negative) Influenza Type B (PCR) NEGATIVE (Negative) RSV RNA Qual (PCR) NEGATIVE (Negative) SARS-CoV-2 RNA (RT-PCR) NEGATIVE (Negative) Discharge Plan Discharge Clinical Impression: Chest pain Patient Disposition: Home, Self-Care Instructions: Chest Pain (ED) Prescriptions: No Action zolpidem 10 mg tablet 1 tab PO BEDTIME amoxicillin-pot clavulanate [Augmentin] 875-125 mg tablet 1 tab PO BID Qty: 9 0RF buprenorphine-naloxone [Suboxone] 4-1 mg film 1 film sublingual BID 7 Days Qty: 14 0RF fluoxetine 20 mg capsule 20 mg PO DAILY Qty: 30 0RF meloxicam 15 mg tablet 15 mg PO DAILY Qty: 20 0RF omeprazole 40 mg capsule,delayed release(DR/EC) 40 mg PO DAILY Qty: 20 0RF famotidine 20 mg tablet 20 mg PO BEDTIME Qty: 20 0RF cyclobenzaprine 10 mg tablet 10 mg PO BEDTIME PRN (Reason: muscle spasm) Qty: 7 0RF prednisone 20 mg tablet 40 mg PO DAILY 5 Days Qty: 10 0RF Referrals: Name,MD Mann [Primary Care Provider] - 05/13/23 Interventions: ED Discharge Assessment Last Done: 05/11/23 23:29 Discharge Date/Time: 05/11/23 23:31
[2023-05-11 20:01] LABS: MANUAL DIFF FLAG NO
[2023-05-11 20:08] LABS: Basophils Absolute Auto 0.1 X10*3/uL (0.0-0.2); Basophils Percent Auto 0.7 % (0-2); Eosinophils Absolute Auto 0.3 X10*3/uL (0.0-0.4); Eosinophils Percent Auto 3.5 % (0-4); Hematocrit 40.4 % (37.0-47.0); Hemoglobin 13.2 g/dl (12.0-16.0); Imm Gran Abs Auto 0.02 X10*3/uL (0.00-0.03); Imm Gran Pct Auto 0.2 % (0.0-0.4); Lymphocytes Absolute Auto 3.8 X10*3/uL (1.2-4.9); Lymphocytes Percent Auto 38.6 % (20-40); Mean Corpuscular HGB Conc 32.7 g/dl (31.0-35.0); Mean Corpuscular Hemoglobin 29.6 pg (27.0-33.0); Mean Corpuscular Volume 90.6 fL (80.0-98.0); Mean Platelet Volume 9.7 fL (9.4-12.3); Monocytes Absolute Auto 0.6 X10*3/uL (0.1-1.2); Monocytes Percent Auto 6.4 % (2-11); Neutrophils Absolute Auto 4.9 x10*3/uL (2.0-8.3); Neutrophils Percent Auto 50.6 % (45-73); Platelet Count 285 X10*3/uL (160-400); Red Blood Count 4.46 X10*6/uL (4.20-5.50); Red Cell Distribution Width 13.2 % (11.0-16.0); White Blood Count 9.7 X10*3/uL (4.8-10.8)
[2023-05-11 20:18] LABS: Prothrombin Time 12.6 SEC (11.1-13.3)
[2023-05-11 20:23] LABS: Alanine Aminotransferase 9 U/L (0-31); Albumin Level 4.4 g/dL (3.5-5.0); Alkaline Phosphatase 55 U/L (39-117); Anion Gap 7 (12-20); Aspartate Amino Transferase 15 U/L (5-31); Bilirubin Total 0.6 mg/dL (0.0-1.0); Blood Urea Nitrogen 9 mg/dL (9-16); Calcium 9.1 mg/dL (8.4-10.2); Carbon Dioxide 30 mmol/L (22-29); Chloride 105 mmol/L (96-108); Creatinine Clr Calc Pharmacy 95.3; Estimated Glomerular Filt Rate > 60; Glucose Random 87 mg/dL (60-115); Magnesium 1.7 mg/dL (1.6-2.6); Potassium 3.3 mmol/L (3.3-5.1); Sodium 139 mmol/L (135-145); Total Protein 7.8 g/dL (6.5-8.0)
[2023-05-11 20:33] LABS: Troponin-I High Sensitivity < 2.7 ng/L (<3.5-17.0)
[2023-05-11 20:42] LABS: Influenza A PCR NEGATIVE (Negative); Influenza B PCR NEGATIVE (Negative); Resp Syncy Virus RNA Qual PCR NEGATIVE (Negative); SARS COV2 PCR INHOUSE NEGATIVE (Negative)
[2023-05-11 21:05] VITALS: BP 115/67; PULSE 93; RESP 20; O2SAT 99
[2023-05-11 21:16] LABS: Appearance Urine Cloudy; Color Urine Yellow; Glucose Urine UA Negative (Negative); Leukocyte Esterase Urine Negative (Negative); Nitrite Urine Negative (Negative); PH 5.5 (5.0-9.0); Specific Gravity - Urine >= 1.030 (1.005-1.025); Urine Blood Negative (Negative); Urine Ketones Negative (Negative); Urine Protein Negative (Neg-Trace)
--- NOTE | 2023-05-11 21:47 | ED_ITS ---
HPI - Chest Pain General Chief Complaint: Chest Pain Stated Complaint: chest pain Time Seen by Provider: 05/11/23 21:08 History of Present Illness HPI narrative: Patient is a 27-year-old female presents today with having chest pain. The chest pain is constant since this morning. Patient had multiple visits for chest pain. the pain is constant. There is no radiation. There is no history of diabetes hypertension, high cholesterol, smoking, mi. Patient is from home. Has similar pain previously had a multiple workups in March they are all negative. Presented again with having chest pain that is very similar. Patient denies any travel history a history of being on control any leg swelling any shortness of breath associated with these pain. The pain is dul Related Data Home Medications Medication Instructions Recorded Confirmed zolpidem 10 mg tablet 1 tab PO BEDTIME 01/15/21 01/15/21 Previous Rx's Medication Instructions Recorded amoxicillin 875 mg-potassium 1 tab PO BID #9 tabs 01/17/21 clavulanate 125 mg tablet (Augmentin) buprenorphine 4 mg-naloxone 1 mg 1 film sublingual BID 7 days #14 ea 01/17/21 sublingual film (Suboxone) fluoxetine 20 mg capsule 20 mg PO DAILY #30 caps 01/17/21 cyclobenzaprine 10 mg tablet 10 mg PO BEDTIME PRN muscle spasm 03/24/23 #7 tabs famotidine 20 mg tablet 20 mg PO BEDTIME #20 tabs 03/24/23 meloxicam 15 mg tablet 15 mg PO DAILY #20 tabs 03/24/23 omeprazole 40 mg capsule,delayed 40 mg PO DAILY #20 caps 03/24/23 release prednisone 20 mg tablet 40 mg (2 x 20 mg) PO DAILY 5 days 03/24/23 #10 tabs Allergies Allergy/AdvReac Type Severity Reaction Status Date / Time No Known Allergies Allergy Verified 04/24/23 14:51 [No Known Allergies*] Review of Systems 2 Review of Systems: No fever no chills no cough no congestion or upper respiratory symptoms Yes all other systems are reviewed and are negative PMF Past Medical History Attestation statement: The following information was validated with the patient. Medical History Asthma Opiate abuse, continuous No known health problems Social History Social History Household Members: None Housing: Apartment Do you presently have visiting nurse or other home services: No Alcohol intake: never Patient Tobacco Use Status: Current everyday Tobacco user Tobacco use type: Cigarette Cigarette Packs Per Day: 0.5 Cigarettes Per Day: 10.0 Substance Use Type: Heroin Advance Directives: No Advance Directives Information Provided: No service: No Current occupational status: employed Physical Exam 2 Vital Signs: Vital Signs: Last Vital Signs Temp 98.0 F 05/11/23 22:00 Pulse 78 05/11/23 22:00 Resp 14 05/11/23 22:00 BP 96/60 05/11/23 22:00 Pulse Ox 100 05/11/23 22:00 O2 Del Method Room Air 05/11/23 22:00 BMI result Body Mass Index 19.8 Appearance: Alert. Oriented X3. No acute distress. Eyes: Pupils equal, round and reactive to light. ENT: Pharynx normal. Neck: Normal inspection. Neck supple. No lymph nodes noted. No crepitus CVS: Normal heart rate and rhythm. Pulses normal. Normal S1 and S2 Respiratory: No respiratory distress. Breath sounds normal. No Wheezing. No rales Abdomen: Soft and nontender. No rigidity. No distention. good BS x4 Skin: Skin warm and dry. Normal skin color. Normal skin turgor. Extremities: No lower extremity edema. Neurovascular intact to all extremities. No Lacerations. No Rash Neuro: Oriented X 3. No motor deficit. No sensory deficit. Moving all extermities. No slurred speech Medical Decision Making Medical Decision Making [facility] Narrative: Patient's chest pain atypical for ACS she is only 27 years old has no significant cardiac risk factor pain is atypical. My interpretation of her EKG showed a sinus rhythm heart rate is 80 MN QRS QTC within normal limits is no acute ST segment elevation. In the setting of negative troponin normal EKG atypical history no cardiac risk factor patient's heart score is less than 3. Less likely to have ACS. Will have patient closely follow up on an outpatient basis. Currently patient is in stable condition. My interpretation of patient's chest x-ray was grossly negative for any acute evidence of pneumonia pneumothorax. I reviewed radiology's reading. Differential Diagnosis Differential Diagnoses: The differential diagnosis associated with the presentation includes ACS, pneumonia, pneumothorax, PE, rib fractur Lab Data [facility] Lab Attestation statement: I reviewed the patient's lab results. 05/11/23 19:55 05/11/23 19:55 Labs: Lab Results 05/11/23 05/11/23 Range/Units 19:55 21:09 WBC 9.7 (4.8-10.8) X10*3/uL RBC 4.46 (4.20-5.50) X10*6/uL Hgb 13.2 (12.0-16.0) g/dl Hct 40.4 (37.0-47.0) % MCV 90.6 (80.0-98.0) fL MCH 29.6 (27.0-33.0) pg MCHC 32.7 (31.0-35.0) g/dl RDW 13.2 (11.0-16.0) % Plt Count 285 (160-400) X10*3/uL MPV 9.7 (9.4-12.3) fL Immature Gran % (Auto) 0.2 (0.0-0.4) % Neut % (Auto) 50.6 (45-73) % Lymph % (Auto) 38.6 (20-40) % [place] % (Auto) 6.4 (2-11) % Eos % (Auto) 3.5 (0-4) % Baso % (Auto) 0.7 (0-2) % Lymph # (Auto) 3.8 (1.2-4.9) X10*3/uL [place] # (Auto) 0.6 (0.1-1.2) X10*3/uL Eos # (Auto) 0.3 (0.0-0.4) X10*3/uL Baso # (Auto) 0.1 (0.0-0.2) X10*3/uL Abs Immat Gran (auto) 0.02 (0.00-0.03) X10*3/uL Absolute Neuts (auto) 4.9 (2.0-8.3) x10*3/uL Absolute Nucleated RBC 0.000 (0.0-0.012) X10*3/uL Nucleated RBC % (auto) 0.0 (0.0-0.2) /100WBC PT 12.6 (11.1-13.3) SEC INR 1.0 (0.9-1.1) APTT 36.0 (26.0-36.4) SEC Sodium 139 (135-145) mmol/L Potassium 3.3 (3.3-5.1) mmol/L Chloride 105 (96-108) mmol/L Carbon Dioxide 30 H (22-29) mmol/L Anion Gap 7 L (12-20) BUN 9 (9-16) mg/dL Creatinine 0.66 (0.5-1.4) mg/dL Estim Creat Clear Calc 95.3 Estimated GFR > 60 Random Glucose 87 (60-115) mg/dL Calcium 9.1 (8.4-10.2) mg/dL Magnesium 1.7 (1.6-2.6) mg/dL Total Bilirubin 0.6 (0.0-1.0) mg/dL AST 15 (5-31) U/L ALT 9 (0-31) U/L Alkaline Phosphatase 55 (39-117) U/L Troponin I High Sens < 2.7 (<3.5-17.0) ng/L Total Protein 7.8 (6.5-8.0) g/dL Albumin 4.4 (3.5-5.0) g/dL Urine Color Yellow Urine Appearance Cloudy Urine pH 5.5 (5.0-9.0) Ur Specific [place] >= 1.030 H (1.005-1.025) Urine Protein Negative (Neg-Trace) mg/dL Urine Glucose (UA) Negative (Negative) mg/dL Urine Ketones Negative (Negative) mg/dL Urine Blood Negative (Negative) Urine Nitrite Negative (Negative) Ur Leukocyte Esterase Negative (Negative) Influenza Type A (PCR) NEGATIVE (Negative) Influenza Type B (PCR) NEGATIVE (Negative) RSV RNA Qual (PCR) NEGATIVE (Negative) SARS-CoV-2 RNA (RT-PCR) NEGATIVE (Negative) Independent Interpretation I performed an independent interpretation of an: EKG and Plain X-Ray ( chest x- ray negative for pneumonia pneumothorax) Interpretation: sinus heart rate is 80 MN QRS QTC within normal limits is no acute ST segment elevation Radiology Impression Discussion of test interpretation with radiology: I have reviewed the radiologist's reading. External Record Review External record reviewed: Prior outpatient labs Discharge Plan Discharge Clinical Impression: Chest pain Patient Disposition: Home, Self-Care Instructions: Chest Pain (ED) Prescriptions: No Action zolpidem 10 mg tablet 1 tab PO BEDTIME amoxicillin-pot clavulanate [Augmentin] 875-125 mg tablet 1 tab PO BID Qty: 9 0RF buprenorphine-naloxone [Suboxone] 4-1 mg film 1 film sublingual BID 7 Days Qty: 14 0RF fluoxetine 20 mg capsule 20 mg PO DAILY Qty: 30 0RF meloxicam 15 mg tablet 15 mg PO DAILY Qty: 20 0RF omeprazole 40 mg capsule,delayed release(DR/EC) 40 mg PO DAILY Qty: 20 0RF famotidine 20 mg tablet 20 mg PO BEDTIME Qty: 20 0RF cyclobenzaprine 10 mg tablet 10 mg PO BEDTIME PRN (Reason: muscle spasm) Qty: 7 0RF prednisone 20 mg tablet 40 mg PO DAILY 5 Days Qty: 10 0RF Referrals: Name,MD Mann [Primary Care Provider] - 05/13/23
[2023-05-11 22:00] VITALS: BP 96/60; PULSE 78; RESP 14; TEMP 36.7; O2SAT 100
[2023-05-11] MEDS: Acetaminophen 325 MG TABLET 650 MG PO (23:28)
== END 2023-05-11 23:31 | disposition home or self-care (01) ==
PROVIDERS: Physician Assistant Medical; Emergency Provider Emergency Medicine Emergency Medical Services; PCP Internal Medicine Geriatric Medicine
DX: R07.9 Chest pain, unspecified (principal); F17.210 Nicotine dependence, cigarettes, uncomplicated; Z20.822 Contact with and (suspected) exposure to COVID-19; Z20.828 Contact with and (suspected) exposure to other viral communicable diseases
CPT/HCPCS: 0241U; 71046; 80053; 81003; 83735; 84484; 85025; 85610; 85730; 93005; 99283; 99285

== ENCOUNTER → 2023-06-08 15:03 | Outpatient (BNVA) | payer MEDICAID, SELFPAY | PROVIDERS: PCP Internal Medicine Geriatric Medicine; Visit Provider Nurse Practitioner Family | DX: R07.89 Other chest pain (principal); I25.2 Old myocardial infarction | CPT/HCPCS: 93005; 99212 ==

== ENCOUNTER 2023-06-08 15:04 | Outpatient (AMB) | payer MEDICAID, SELFPAY ==
[2023-06-08 15:05] VITALS: BP 90/62; PULSE 87; BMI 19.6
--- NOTE | 2023-06-08 15:05 | MHC.OFFVIS ---
Intake Vital Signs 06/08/23 15:05 Height 5 ft 1 in Weight 103 lb 9.876 oz BMI 19.6 BP 90/62 Pulse 87 Pulse Source Pulse Oximeter Intake Visit Reasons: HS pt/ from Dr. Diamond/Chest pain Safe Technician Required: Yes Safe Technician Language: Track Man Name: susan solorzano [id number] Allergies No Known Allergies [No Known Allergies*] Allergy (Verified 06/08/23 15:08) HPI HS pt/ from Dr. Diamond/Chest pain HPI Details Miley is a 27-year-old female with past medical history of substance abuse, NSTEMI who has been seen in the ER on 4 occasions this past year with chest discomfort. She has ruled out for ACS. She was thought to have costochondritis. She was referred to Cardiology in follow-up. Today she presents for follow-up visit. She was last seen by Dr. Rees on 01/16/2021. She tells me she gets pain in her left chest region that is tender to palpation however she does have pain on the inside as well. Her discomfort comes and goes. It is not usually brought on by physical activity. No concerning shortness of breath, palpitations, presyncope, syncope, PND, orthopnea or edema. She does not take any prescribed medications. She walks frequently as she does not have a car. [facility] Medical History Asthma Opiate abuse, continuous No known health problems Social History Household Members: None Housing: Apartment Do you presently have visiting nurse or other home services: No Alcohol intake: never Patient Tobacco Use Status: Current everyday Tobacco user Tobacco use type: Cigarette Cigarette Packs Per Day: 0.5 Cigarettes Per Day: 10.0 Substance Use Type: Heroin service: No Current occupational status: employed Review of Systems Const All systems reviewed & are unremarkable except as noted in HPI and below ENT Denies dizziness Card Reports chest pain, Reports chest pain at rest, Reports chest pain with activity, Denies rapid heart rate, Denies pedal edema, Denies edema, Denies leg edema, Denies lightheadedness, Denies palpitations, Denies dyspnea, Denies dyspnea on exertion and Denies orthopnea Resp Denies cough, Denies dyspnea and Denies dyspnea on exertion GI Denies hematochezia and Denies change in stool character Musc Denies abnormal gait, Denies limited range of motion, Denies muscle cramps, Denies muscle weakness, Denies numbness, Denies radiating pain into limb, Denies stiffness and Denies tingling Neuro Denies abnormal gait, Denies dizziness, Denies numbness and Denies tingling Endo Denies palpitations Physical Exam Vital Signs: Last Vital Signs Pulse 87 06/08/23 15:05 BP 90/62 06/08/23 15:05 BMI result Body Mass Index 19.6 Const Other: Thin built General: cooperative, comfortable and no acute distress Orientation/consciousness: patient oriented x3 Neck Neck: Yes normal visual inspection Resp Effort & Inspection: normal respiratory effort Auscultation: clear to auscultation bilaterally, no crackles, no rales, no rhonchi and no wheezes Cardio Jugular venous distension: no JVD Rate: regular rate Rhythm: regular rhythm Heart sounds: S1 normal heart sound present, S2 normal heart sound present, no murmurs and no rubs Neuro General: patient oriented x3 Extrem General: Yes normal to inspection, No no pedal edema and No calf tenderness Psych Appearance: grossly normal Mental Status: mental status grossly normal Speech and movement: Normal speech and movement present Office Procedures EKG Details: Today, read by me, normal sinus rhythm, no acute ST or T-wave abnormalities, rate 87, QTC 430 millisecond [id number], Complete Assessment & Plan Assessment & Plan (1) Chest discomfort: Code(s): R07.89 - Other chest pain Plan: Report of left-sided chest discomfort, mostly chest wall however she does report pain on the inside as well. Her symptoms are intermittent, nonexertional. She does have some grimacing with palpation of the anterior chest but states she has other pain as well. She has been seen in the ER 4 times this past year. All troponins have been normal. She does have a history of having elevated troponin, NSTEMI 12/2020 in the setting of drug use. Echocardiogram at that time showed EF 50-55%, no valve abnormalities and no regional wall motion abnormalities. She does not know her family history or if anyone has had heart disease at a young age. For further evaluation will repeat echocardiogram to assess for EF and wall motion. Will order an exercise stress test to evaluate for any ischemia. She may have costochondritis. Will have her take ibuprofen 2 to 3 times a day for the next week to see if there is any improvement in her symptom. Cardiology office visit in 6-8 weeks, sooner if needed. (2) Hx of non-ST elevation myocardial infarction (NSTEMI): Code(s): I25.2 - Old myocardial infarction Plan: As above Orders: Orders CA echo transthoracic complete Today R07.89 - Other chest pain CA stress test Today R07.89 - Other chest pain Medications: New ibuprofen 400 mg PO Q8H 7 days 21 tabs 0RF Coding Level of Care Code Est Pt Level 4 (06012) Diagnoses Chest discomfort R07.89 Hx of non-ST elevation myocardial infarction (NSTEMI) I25.2 CPT Codes EKG - CPT: 86405-[id number], Complete ([id number]) Time Spent (min) 28
== END 2023-06-08 15:44 | disposition home or self-care (01) ==
PROVIDERS: PCP Internal Medicine Geriatric Medicine; Visit Provider Nurse Practitioner Family
DX: R07.89 Other chest pain (principal); I25.2 Old myocardial infarction
CPT/HCPCS: 93010; 99214

== ENCOUNTER 2023-06-08 23:53 | Emergency (ER) | payer MEDICAID, SELFPAY ==
--- NOTE | ~2023-06-08 | CT_ITS ---
EXAMINATION: CT ABDOMEN AND PELVIS WITH CONTRAST CLINICAL INFORMATION: Right lower quadrant pain COMPARISON: None available. TECHNIQUE: Multidetector volumetric images were obtained from the superior aspect of the liver through the pubic symphysis following administration 85 mL of Omnipaque 350 intravenous contrast. Sagittal and coronal reformatted images were obtained on the technologist's workstation. Oral contrast: No This CT examination was performed using dose optimization techniques as appropriate, variously including the following: *Automated exposure control *Adjustment of mA and/or kV according to patient size (this includes techniques or standardized protocols for targeted exams where dose is matched to indication/reason for exam; i.e. extremities or head) *Use of iterative reconstruction technique DLP: 251 mGy-cm FINDINGS: LUNG BASES: The visualized lung bases are unremarkable. LIVER, GALLBLADDER, AND BILIARY TREE: The liver is normal in size, shape, and attenuation. No focal hepatic lesion or biliary ductal dilatation is present. The gallbladder is unremarkable with no evidence of radiopaque gallstones, gallbladder wall thickening, or obvious pericholecystic inflammatory changes. PANCREAS: Unremarkable. SPLEEN: Unremarkable. ADRENAL GLANDS: Unremarkable. KIDNEYS AND URETERS: The kidneys are normal in size, shape, and attenuation. No hydronephrosis, hydroureter, or calculi seen. No perinephric stranding. BLADDER: Unremarkable. GASTROINTESTINAL TRACT: The small and large bowel are unremarkable. The appendix is unremarkable. ABDOMINAL WALL: No significant hernia is appreciated. LYMPH NODES: Normal. VASCULAR: Unremarkable. PELVIC VISCERA: There is a 4 cm cyst with a fluid level in the right adnexa, likely a hemorrhagic cyst. Small surrounding fluid. Left adnexa unremarkable. Suspect an arcuate uterus. Uterus otherwise unremarkable. OSSEOUS STRUCTURES: Unremarkable. CT/CT abdomen pelvis w IV con IMPRESSION: * There is a 4 cm cyst in the right adnexa with a fluid level, likely a hemorrhagic cyst. Small surrounding free fluid. Consider pelvic ultrasound for confirmation, and to exclude torsion in the setting of right lower quadrant pain. * Normal appendix. * No additional potential etiology for the patient's right lower quadrant pain is identified.
[2023-06-08 23:58] VITALS: BP 116/77; PULSE 97; RESP 20; TEMP 36.6; O2SAT 98; BMI 19.8
[2023-06-09 00:52] LABS: Basophils Absolute Auto 0.1 X10*3/uL (0.0-0.2); Basophils Percent Auto 0.7 % (0-2); Eosinophils Absolute Auto 0.4 X10*3/uL (0.0-0.4); Eosinophils Percent Auto 3.3 % (0-4); Hematocrit 41.3 % (37.0-47.0); Hemoglobin 13.6 g/dl (12.0-16.0); Imm Gran Abs Auto 0.02 X10*3/uL (0.00-0.03); Imm Gran Pct Auto 0.2 % (0.0-0.4); Lymphocytes Percent Auto 40.9 % (20-40); MANUAL DIFF FLAG NO; Mean Corpuscular HGB Conc 32.9 g/dl (31.0-35.0); Mean Corpuscular Hemoglobin 29.6 pg (27.0-33.0); Mean Platelet Volume 9.6 fL (9.4-12.3); Monocytes Absolute Auto 0.8 X10*3/uL (0.1-1.2); Monocytes Percent Auto 6.9 % (2-11); Neutrophils Absolute Auto 5.8 x10*3/uL (2.0-8.3); Platelet Count 237 X10*3/uL (160-400); Red Blood Count 4.59 X10*6/uL (4.20-5.50); White Blood Count 12.2 X10*3/uL (4.8-10.8)
[2023-06-09 00:53] LABS: Appearance Urine Cloudy; Color Urine Yellow; Glucose Urine UA Negative (Negative); Leukocyte Esterase Urine Trace (Negative); Nitrite Urine Negative (Negative); Specific Gravity - Urine >= 1.030 (1.005-1.025); UMIC TRIGGER UACC YES; Urine Blood Negative (Negative); Urine Ketones Trace mg/dL (Negative); Urine Protein Negative (Neg-Trace)
[2023-06-09 00:56] LABS: UPreg QC Valid YES; Urine Pregnancy NEGATIVE (NEGATIVE)
--- NOTE | 2023-06-09 00:57 | MHC.EDTECH ---
Patient blood drawn and urine sample collected and sent to lab .
[2023-06-09 00:58] LABS: Bacteria Urine 3+ (None Seen); Hyaline Casts Urine 0-2 /LPF (0-2); RBC Urine 0-2 /HPF (0-2); WBC Urine 0-5 /HPF (0-5)
[2023-06-09 01:08] LABS: Alanine Aminotransferase 10 U/L (0-31); Albumin Level 4.5 g/dL (3.5-5.0); Alkaline Phosphatase 52 U/L (39-117); Anion Gap 12 (12-20); Aspartate Amino Transferase 17 U/L (5-31); Bilirubin Total 0.4 mg/dL (0.0-1.0); Blood Urea Nitrogen 10 mg/dL (9-16); Calcium 9.6 mg/dL (8.4-10.2); Carbon Dioxide 26 mmol/L (22-29); Chloride 107 mmol/L (96-108); Creatinine Clr Calc Pharmacy 96.6; Estimated Glomerular Filt Rate > 60; Glucose Random 101 mg/dL (60-115); Lipase 11 U/L (8-78); Sodium 141 mmol/L (135-145); Total Protein 7.8 g/dL (6.5-8.0)
--- NOTE | 2023-06-09 02:47 | ED.ABDPAIN ---
HPI - Abdominal Pain General Chief Complaint: Abdominal Pain Stated Complaint: side pain Time Seen by Provider: 06/09/23 02:34 Source: patient Mode of arrival: ambulatory Limitations: no limitations History of Present Illness HPI narrative: 27 yo female no sig PMH no prior surgeries here with c/o RLQ pain x 2 days some mild nausea and dysuria. Denies vaginal discharge, fevers, diarrhea. She notes its hurts to move and walk. No prior ovarian cyst/renal stones. MD elicited complaint: abdominal pain Pertinent past history: none Onset (ago): day(s) (2) Pain Consistency: constant Location: RLQ Severity: moderate Quality: aching Radiation: none Migration to: no migration Exacerbating factors: movement Relieving factors: nothing Associated symptoms: nausea Related Data Previous Rx's Medication Instructions Recorded ibuprofen 400 mg tablet 400 mg PO Q8H 7 days #21 tabs 06/08/23 Allergies Allergy/AdvReac Type Severity Reaction Status Date / Time No Known Allergies Allergy Verified 06/08/23 15:08 [No Known Allergies*] Review of Systems Review of Systems Constitutional : No Weight loss, No Fever, No Chills ENT/Mouth : No sore throat, No Rhinorrhea Eyes: No Swelling, No Redness Cardiovascular : No Chest Pain, No SOB, No Edema Respiratory : No Cough, No Sputum, No Wheezing Gastrointestinal : Positive Nausea, no Vomiting, no Diarrhea, positive abdominal Pain, No Hematochezia, No Melena Genitourinary : No Dysuria, No Urinary Frequency, No Hematuria, No Urgency Musculoskeletal : No joint pain, No Myalgias, No Joint Swelling Skin : No Skin Lesions, No rash Neuro : No Weakness, No Numbness, No Dizziness, No Headache Psych : No Anxiety/Panic, No Depression Heme/Lymph: No Bruising, No Lymphadenopathy Endocrine : No Polyuria, No Polydipsia All other systems reviewed and are negative. [facility] Past Medical History Medical History Asthma Opiate abuse, continuous No known health problems Social History Social History Household Members: None Housing: Apartment Do you presently have visiting nurse or other home services: No Alcohol intake: never Patient Tobacco Use Status: Current everyday Tobacco user Tobacco use type: Cigarette Cigarette Packs Per Day: 0.5 Cigarettes Per Day: 10.0 Smoked in Last 30 Days: Yes Use of substances other than those prescribed or required for medical reasons: No Substance Use Type: Heroin Advance Directives: No Advance Directives Information Provided: Yes service: No Current occupational status: employed Physical Exam ED Vital Signs: Vital Signs - 24 hr 06/08/23 23:58 06/09/23 02:54 06/09/23 02:54 Temperature 97.8 F Pulse Rate 97 90 Pulse Rate [Monitor] 90 Respiratory Rate 20 16 Blood Pressure 116/77 101/75 Pulse Oximetry 98 100 Oxygen Delivery Method Room Air Room Air BMI result Body Mass Index 19.8 Appearance: Alert. Oriented X3. No acute distress. Eyes: Pupils equal, round and reactive to light. ENT: Pharynx normal. Neck: Normal inspection. Neck supple. CVS: Normal heart rate and rhythm. Pulses normal. Respiratory: No respiratory distress. Breath sounds normal. Abdomen: Soft and mild RLQ ttp no rebound or guarding Skin: Skin warm and dry. Normal skin color. Normal skin turgor. Extremities: No lower extremity edema. Neuro: Oriented X 3. No motor deficit. No sensory deficit. Course Course Course Narrative: no peritoneal signs, no sig pain, doubt torsion at this time very low clinical suspicion Medical Decision Making Medical Decision Making [facility] Narrative: 27 yo female no sig PMH no surgeries here with RLQ pain worse with walking and mild nausea but no fevers at this time will yaima basic labs and CT scan for appendicitis. Could be cyst, appendicitis, renal colic Differential Diagnosis Differential Diagnoses: The differential diagnosis associated with the presentation includes cyst, appendicitis, renal colic Admission/Observation Consideration of admission/observation: Escalation of care including admission/observation considered not toxic, pain improved stable for DC Lab Data [facility] Lab Attestation statement: I reviewed the patient's lab results. 06/09/23 00:45 06/09/23 00:45 Labs: Lab Results 06/09/23 Range/Units 00:45 WBC 12.2 H (4.8-10.8) X10*3/uL RBC 4.59 (4.20-5.50) X10*6/uL Hgb 13.6 (12.0-16.0) g/dl Hct 41.3 (37.0-47.0) % MCV 90.0 (80.0-98.0) fL MCH 29.6 (27.0-33.0) pg MCHC 32.9 (31.0-35.0) g/dl RDW 13.0 (11.0-16.0) % Plt Count 237 (160-400) X10*3/uL MPV 9.6 (9.4-12.3) fL Immature Gran % (Auto) 0.2 (0.0-0.4) % Neut % (Auto) 48.0 (45-73) % Lymph % (Auto) 40.9 H (20-40) % [place] % (Auto) 6.9 (2-11) % Eos % (Auto) 3.3 (0-4) % Baso % (Auto) 0.7 (0-2) % Lymph # (Auto) 5.0 H (1.2-4.9) X10*3/uL [place] # (Auto) 0.8 (0.1-1.2) X10*3/uL Eos # (Auto) 0.4 (0.0-0.4) X10*3/uL Baso # (Auto) 0.1 (0.0-0.2) X10*3/uL Abs Immat Gran (auto) 0.02 (0.00-0.03) X10*3/uL Absolute Neuts (auto) 5.8 (2.0-8.3) x10*3/uL Absolute Nucleated RBC 0.000 (0.0-0.012) X10*3/uL Nucleated RBC % (auto) 0.0 (0.0-0.2) /100WBC Sodium 141 (135-145) mmol/L Potassium 4.0 D (3.3-5.1) mmol/L Chloride 107 (96-108) mmol/L Carbon Dioxide 26 (22-29) mmol/L Anion Gap 12 (12-20) BUN 10 (9-16) mg/dL Creatinine 0.67 (0.5-1.4) mg/dL Estim Creat Clear Calc 96.6 Estimated GFR > 60 Random Glucose 101 (60-115) mg/dL Calcium 9.6 (8.4-10.2) mg/dL Total Bilirubin 0.4 (0.0-1.0) mg/dL AST 17 (5-31) U/L ALT 10 (0-31) U/L Alkaline Phosphatase 52 (39-117) U/L Total Protein 7.8 (6.5-8.0) g/dL Albumin 4.5 (3.5-5.0) g/dL Lipase 11 (8-78) U/L Urine Color Yellow Urine Appearance Cloudy Urine pH 6.0 (5.0-9.0) Ur Specific [place] >= 1.030 H (1.005-1.025) Urine Protein Negative (Neg-Trace) mg/dL Urine Glucose (UA) Negative (Negative) mg/dL Urine Ketones Trace (Negative) mg/dL Urine Blood Negative (Negative) Urine Nitrite Negative (Negative) Ur Leukocyte Esterase Trace H (Negative) Urine RBC 0-2 (0-2) /HPF Urine WBC 0-5 (0-5) /HPF Ur Squamous Epith Cells 11-20 (0-2) /HPF Urine Bacteria 3+ (None Seen) Hyaline Casts 0-2 (0-2) /LPF Urine Test NEGATIVE (NEGATIVE) Independent Interpretation I performed an independent interpretation of an: CT Scan (ovarian cyst) Radiology Impression Discussion of test interpretation with radiology: I have reviewed the radiologist's reading. External Record Review External record reviewed: Inpatient record Medications Administered Discontinued Medications Generic Name Dose Route Start Last Admin Trade Name Freq PRN Reason Stop Dose Admin Sodium Chloride 1,000 mls @ 999 mls/hr 06/09/23 03:00 06/09/23 03:20 Ns IV 06/09/23 04:00 999 mls/hr .Q1H1M IRISH Administration Iohexol 85 ml 06/09/23 03:14 06/09/23 03:15 Iohexol 350 Mg/Ml 100 Ml Infus..Btl IV 06/09/23 03:15 85 ml ONCE ONE Administration Ketorolac Tromethamine 15 mg 06/09/23 02:46 06/09/23 03:20 Ketorolac Tromethamine 15 Mg/Ml Vial IVPUSH 06/09/23 02:47 15 mg ONCE ONE Administration Discharge Plan Discharge Clinical Impression: Abdominal pain Qualifiers: Abdominal location: right lower quadrant Qualified Code(s): R10.31 - Right lower quadrant pain Ovarian cyst Qualifiers: Laterality: right Qualified Code(s): N83.201 - Unspecified ovarian cyst, right side Patient Disposition: Home, Self-Care Instructions: Abdominal Pain (ED), Ovarian Cyst (ED) Additional Instructions: return for worsening pain, fevers, vomiting, fainting or any other concerns. take ibuprofen as needed for pain. your doctor should order repeat ultrasound for 4 weeks. Regrese si el dolor empeora, tiene fiebre, v?mitos, desmayos o cualquier otra inquietud. [place] ibuprofeno seg?n sea necesario para el dolor. lopez m?dico debe ordenar que se repita la ecograf?a nelsy 4 semanas. Prescriptions: No Action ibuprofen 400 mg tablet 400 mg PO Q8H 7 Days Qty: 21 0RF
[2023-06-09 02:54] VITALS: BP 101/75; PULSE 90; RESP 16; O2SAT 100
[2023-06-09] MEDS: iohexoL 350 MG/ML 100 ML INFUS..BTL 85 ML IV (03:15)
[2023-06-09] MEDS: Ketorolac Tromethamine 15 MG/ML VIAL IVPUSH (03:20)
[2023-06-09] MEDS: 0.9 % Sodium Chloride 1,000 ML 999 ML IV (03:20)
[2023-06-09 04:57] VITALS: PULSE 92; RESP 16; O2SAT 99
== END 2023-06-09 05:01 | disposition home or self-care (01) ==
PROVIDERS: Emergency Provider Emergency Medicine; PCP Internal Medicine Geriatric Medicine
DX: R10.31 Right lower quadrant pain (principal); N83.201 Unspecified ovarian cyst, right side; F17.210 Nicotine dependence, cigarettes, uncomplicated
CPT/HCPCS: 36415; 74177; 80053; 81001; 81025; 83690; 85025; 96361; 96374; 99284; 99285; J1885; Q9967

== ENCOUNTER 2023-07-10 13:35 | Outpatient (REF) | payer MEDICAID, SELFPAY ==
[2023-07-11 04:26] LABS: HBS Num1 10.64 mIU/mL (0-7.99); HBc Num1 0.31 S/CO (0.00-0.79); HBsAGNum1 0.27 S/CO (0.00-0.99); Hepatitis B Core Antibody Nonreactive (Nonreactive); Hepatitis B Surface Antigen Negative (Negative); ~HepC Num1 10.83 S/CO (0.00-0.79); ~Hepatitis C Antibody Reactive (Nonreactive)
[2023-07-11 04:31] LABS: Hepatitis A Antibody IgG REACTIVE (Nonreactive)
[2023-07-11 05:14] LABS: HBS Num2 10.55 mIU/mL (0-7.99); HBS Num3 9.86 mIU/mL (0-7.99); ~Hepatitis B Surface Antibody GRAYZONE (Nonreactive)
[2023-07-11 05:51] LABS: CT PCR NOT DETECTED (Not Detect.); NG PCR NOT DETECTED (Not Detect.)
[2023-07-13 21:24] LABS: TS Negative Control Passed; TS Panel A 0; TS Panel B 0; TS Positive Control Passed; TSpotTB Negative (Negative)
[2023-07-14 18:18] LABS: HCV Log PCR <1.18 NOT DETECTED Log IU/mL (NOT DETECTED); HepC Viral Load <15 NOT DETECTED IU/mL (NOT DETECTED)
== END 2023-07-10 13:36 | disposition home or self-care (01) ==
LOC: HO.HHCL 13:35
PROVIDERS: Visit Provider Emergency Medicine
DX: F11.20 Opioid dependence, uncomplicated (principal)
CPT/HCPCS: 0353U; 36415; 86481; 86704; 86706; 86708; 86803; 87340; 87522

== ENCOUNTER 2023-07-14 11:18 | Emergency (ER) | payer MEDICAID, SELFPAY ==
--- NOTE | ~2023-07-14 | CT_ITS ---
EXAMINATION: CT ABDOMEN AND PELVIS WITH CONTRAST CLINICAL INFORMATION: Periumbilical pain. Leukocytosis. COMPARISON: CT abdomen pelvis June 09, 2023 TECHNIQUE: Multidetector volumetric images were obtained from the superior aspect of the liver through the pubic symphysis following administration 85 mL of Omnipaque 350 intravenous contrast. Sagittal and coronal reformatted images were obtained on the technologist's workstation. This CT examination was performed using dose optimization techniques as appropriate, variously including the following: *Automated exposure control *Adjustment of mA and/or kV according to patient size (this includes techniques or standardized protocols for targeted exams where dose is matched to indication/reason for exam; i.e. extremities or head) *Use of iterative reconstruction technique DLP: 179 mGy-cm FINDINGS: Visualized lung bases are well aerated. The liver is normal in size. The gallbladder is normal in appearance. The pancreas, spleen and adrenal glands are unremarkable. Symmetrically enhancing kidneys. There is no hydronephrosis. Normal caliber loops of small and large bowel. Moderate to severe colonic stool burden. Normal appendix. Normal caliber abdominal aorta. No retroperitoneal lymphadenopathy. The bladder is decompressed and therefore not optimally characterized. Unremarkable CT appearance of the uterus. There is a small amount of free pelvic fluid, likely physiologic. No inguinal lymphadenopathy. No acute osseous abnormality. CT/CT abdomen pelvis w IV con IMPRESSION: Visualized lung bases are well aerated. Fleischner guidelines were followed.
[2023-07-14 11:29] VITALS: BP 102/75; BP 97/62; PULSE 101; PULSE 90; RESP 18; TEMP 36.8; O2SAT 100; O2SAT 99; BMI 19.3
[2023-07-14 11:59] LABS: MANUAL DIFF FLAG NO
[2023-07-14 12:03] LABS: Basophils Absolute Auto 0.1 X10*3/uL (0.0-0.2); Basophils Percent Auto 0.4 % (0-2); Eosinophils Absolute Auto 0.3 X10*3/uL (0.0-0.4); Eosinophils Percent Auto 1.4 % (0-4); Hematocrit 39.8 % (37.0-47.0); Hemoglobin 13.1 g/dl (12.0-16.0); Imm Gran Abs Auto 0.07 X10*3/uL (0.00-0.03); Imm Gran Pct Auto 0.4 % (0.0-0.4); Lymphocytes Percent Auto 10.6 % (20-40); Mean Corpuscular HGB Conc 32.9 g/dl (31.0-35.0); Mean Corpuscular Hemoglobin 29.7 pg (27.0-33.0); Mean Corpuscular Volume 90.2 fL (80.0-98.0); Mean Platelet Volume 9.7 fL (9.4-12.3); Monocytes Absolute Auto 1.5 X10*3/uL (0.1-1.2); Monocytes Percent Auto 7.9 % (2-11); Neutrophils Absolute Auto 14.8 x10*3/uL (2.0-8.3); Neutrophils Percent Auto 79.3 % (45-73); Platelet Count 193 X10*3/uL (160-400); Red Blood Count 4.41 X10*6/uL (4.20-5.50); Red Cell Distribution Width 12.7 % (11.0-16.0); White Blood Count 18.7 X10*3/uL (4.8-10.8)
[2023-07-14 12:21] LABS: Alanine Aminotransferase 11 U/L (0-31); Albumin Level 4.2 g/dL (3.5-5.0); Alkaline Phosphatase 45 U/L (39-117); Anion Gap 12 (12-20); Aspartate Amino Transferase 16 U/L (5-31); Bilirubin Total 0.4 mg/dL (0.0-1.0); Blood Urea Nitrogen 12 mg/dL (9-16); Calcium 8.9 mg/dL (8.4-10.2); Carbon Dioxide 25 mmol/L (22-29); Chloride 107 mmol/L (96-108); Creatinine Clr Calc Pharmacy 109.7; Estimated Glomerular Filt Rate > 60; Glucose Random 102 mg/dL (60-115); Potassium 3.7 mmol/L (3.3-5.1); Sodium 140 mmol/L (135-145); Total Protein 7.3 g/dL (6.5-8.0)
[2023-07-14 12:24] LABS: HCG Quantitative < 2 mIU/mL; Troponin-I High Sensitivity < 2.7 ng/L (<3.5-17.0)
--- NOTE | 2023-07-14 14:30 | ED_ITS ---
HPI - General Adult General Chief complaint: Abdominal Pain Stated complaint: ABD PAIN,CP S/P VOMITING, POOR APPETITE PER EMS Time Seen by Provider: 07/14/23 13:33 Source: patient Mode of arrival: ambulatory Limitations: no limitations History of Present Illness HPI narrative: Patient comes to the emergency room complaining of nausea and vomiting and periumbilical pain since this morning. Patient was given 4 mg of Zofran by EMS and the vomiting improved. Patient denies any recent use of street drugs. Patient denies fever chills, no URI or UTI symptoms. Related Data Previous Rx's Medication Instructions Recorded ibuprofen 400 mg tablet 400 mg PO Q8H 7 days #21 tabs 06/08/23 ondansetron 4 mg disintegrating 4 mg PO Q6H PRN nausea and 07/14/23 tablet vomiting #14 tabs Allergies Allergy/AdvReac Type Severity Reaction Status Date / Time No Known Allergies Allergy Verified 06/08/23 15:08 [No Known Allergies*] Review of Systems 2 Review of Systems: Constitutional : No Weight loss, No Fever, No Chills, No Night Sweats, No Fatigue, No Malaise ENT/Mouth : No Hearing loss, No Ear Pain, No Nasal Congestion, No Sinus Pain, No Hoarseness, No sore throat, No Rhinorrhea, No Swallowing Difficulty Eyes: No Eye Pain, No Swelling, No Redness, No Foreign Body, No Discharge, No Vision Changes Cardiovascular : No Chest Pain, No SOB, No Dyspnea on Exertion, No Orthopnea, No Edema, No Palpitations Respiratory : No Cough, No Sputum, No Wheezing, No Smoke Exposure, No Dyspnea Gastrointestinal : Complaining of nausea and vomit, No Diarrhea, No Constipation, complaining of periumbilical pain, No Hematochezia, No Melena Genitourinary : no irregular bleeding, No Dysuria, No Urinary Frequency, No Hematuria, No Urinary Incontinence, No Urgency, No Flank Pain, No Urinary Flow Changes, No Hesitancy Musculoskeletal : No joint pain, No Myalgias, No Joint Swelling Skin : No Skin Lesions, No rash Neuro : No Weakness, No Numbness, No Paresthesias, No Loss of Consciousness, No Dizziness, No Headache Psych : No Anxiety/Panic, No Depression, No SI/HI/AH/VH, No Social Issues, Heme/Lymph: No Bruising, No Bleeding,No Lymphadenopathy Endocrine : No Polyuria, No Polydipsia, No Temperature Intolerance [facility] Past Medical History Medical History Asthma Opiate abuse, continuous No known health problems Social History Social History Household Members: None Housing: Apartment Do you presently have visiting nurse or other home services: No Alcohol intake: never Patient Tobacco Use Status: Current everyday Tobacco user Tobacco use type: Cigarette Cigarette Packs Per Day: 0.5 Cigarettes Per Day: 10.0 Smoked in Last 30 Days: Yes Use of substances other than those prescribed or required for medical reasons: Yes Substance Use Type: Heroin Advance Directives: No service: No Current occupational status: employed Physical Exam ED Vital Signs: Vital Signs - 24 hr 07/14/23 11:29 07/14/23 14:42 07/14/23 14:44 Temperature 98.2 F 98.3 F 98.2 F Pulse Rate 90 89 81 Respiratory Rate 18 18 17 Blood Pressure 97/62 98/58 L 110/64 Pulse Oximetry 99 98 96 Oxygen Delivery Method Room Air Room Air Room Air BMI result Body Mass Index 19.3 Const Other: Appearance: Alert. Oriented X3. No acute distress. Well-appearing Eyes: Pupils equal, round and reactive to light. ENT: Pharynx normal. Neck: Normal inspection. Neck supple. No lymph nodes noted. No crepitus CVS: Normal heart rate and rhythm. Pulses normal. Normal S1 and S2 Respiratory: No respiratory distress. Breath sounds normal. No Wheezing. No rales Abdomen: Soft and nontender. No rebound, no guarding, No rigidity. No distention. Skin: Skin warm and dry. Normal skin color. Normal skin turgor. Extremities: No lower extremity edema. No Lacerations. No Rash Neuro: Oriented X 3. No motor deficit. No sensory deficit. Moving all extremities. No slurred speech. CN 2 through 12 grossly intact Psych: calm, cooperative, normal affect Medications Administered Discontinued Medications Generic Name Dose Route Start Last Admin Trade Name Freq PRN Reason Stop Dose Admin Sodium Chloride 1,000 mls @ 999 mls/hr 07/14/23 14:28 07/14/23 16:52 Ns IVCONT 07/14/23 15:28 Infused .Q1H1M ONE Infusion Iohexol 100 ml 07/14/23 16:11 07/14/23 16:11 Iohexol 350 Mg/Ml 100 Ml Infus..Btl IV 07/14/23 16:12 85 ml ONCE ONE Administration Ondansetron HCl 4 mg 07/14/23 14:28 07/14/23 14:40 Ondansetron Hcl 4 Mg/2 Ml Vial IVPUSH 07/14/23 14:29 4 mg ONCE ONE Administration Medical Decision Making Medical Decision Making [facility] Narrative: -my interpretation of labs: Patient has elevated white blood cell count, 18.7. However, patient does not have significant abdominal pain, patient claimed that earlier today she had periumbilical pain. Musculoskeletal from vomiting versus early appendicitis. Patient has had multiple visits for abdominal pain in the past. However, this time leukocytosis higher than usual. LFTs within normal limits. HCG negative. -urinalysis my interpretation: No UTI. -my interpretation of CT scan of the abdomen and pelvis: No obvious abnormality. -patient states that she is remembered that she is taking new antibiotics for a dental infection, since then she has been nauseous. Leukocytosis likely secondary to be vomiting, reactive leukocytosis. -patient's physical exam was reassuring Differential Diagnosis Differential Diagnoses: The differential diagnosis associated with the presentation includes (As above) Admission/Observation Consideration of admission/observation: Escalation of care including admission/observation considered (Given patient's initial presentation and symptoms, admission was was considered) Lab Data [facility] Lab Attestation statement: I reviewed the patient's lab results. 07/14/23 11:56 07/14/23 11:56 Labs: Lab Results 07/14/23 07/14/23 Range/Units 11:56 16:07 WBC 18.7 H (4.8-10.8) X10*3/uL RBC 4.41 (4.20-5.50) X10*6/uL Hgb 13.1 (12.0-16.0) g/dl Hct 39.8 (37.0-47.0) % MCV 90.2 (80.0-98.0) fL MCH 29.7 (27.0-33.0) pg MCHC 32.9 (31.0-35.0) g/dl RDW 12.7 (11.0-16.0) % Plt Count 193 (160-400) X10*3/uL MPV 9.7 (9.4-12.3) fL Immature Gran % (Auto) 0.4 (0.0-0.4) % Neut % (Auto) 79.3 H (45-73) % Lymph % (Auto) 10.6 L (20-40) % [place] % (Auto) 7.9 (2-11) % Eos % (Auto) 1.4 (0-4) % Baso % (Auto) 0.4 (0-2) % Lymph # (Auto) 2.0 (1.2-4.9) X10*3/uL [place] # (Auto) 1.5 H (0.1-1.2) X10*3/uL Eos # (Auto) 0.3 (0.0-0.4) X10*3/uL Baso # (Auto) 0.1 (0.0-0.2) X10*3/uL Abs Immat Gran (auto) 0.07 H (0.00-0.03) X10*3/uL Absolute Neuts (auto) 14.8 H (2.0-8.3) x10*3/uL Absolute Nucleated RBC 0.000 (0.0-0.012) X10*3/uL Nucleated RBC % (auto) 0.0 (0.0-0.2) /100WBC Sodium 140 (135-145) mmol/L Potassium 3.7 (3.3-5.1) mmol/L Chloride 107 (96-108) mmol/L Carbon Dioxide 25 (22-29) mmol/L Anion Gap 12 (12-20) BUN 12 (9-16) mg/dL Creatinine 0.59 (0.5-1.4) mg/dL Estim Creat Clear Calc 109.7 Estimated GFR > 60 Random Glucose 102 (60-115) mg/dL Calcium 8.9 D (8.4-10.2) mg/dL Total Bilirubin 0.4 (0.0-1.0) mg/dL AST 16 (5-31) U/L ALT 11 (0-31) U/L Alkaline Phosphatase 45 (39-117) U/L Troponin I High Sens < 2.7 (<3.5-17.0) ng/L Total Protein 7.3 (6.5-8.0) g/dL Albumin 4.2 (3.5-5.0) g/dL Lipase 11 (8-78) U/L Beta HCG, Quant < 2 mIU/mL Urine Color Yellow Urine Appearance Clear Urine pH >= 9.0 (5.0-9.0) Ur Specific Strang 1.020 (1.005-1.025) Urine Protein Negative (Neg-Trace) mg/dL Urine Glucose (UA) Negative (Negative) mg/dL Urine Ketones Negative (Negative) mg/dL Urine Blood Negative (Negative) Urine Nitrite Negative (Negative) Ur Leukocyte Esterase Negative (Negative) Independent Interpretation I performed an independent interpretation of an: CT Scan Radiology Impression Discussion of test interpretation with radiology: I have reviewed the radiologist's reading. Radiologist Impression: FINDINGS: Visualized lung bases are well aerated. The liver is normal in size. The gallbladder is normal in appearance. The pancreas, spleen and adrenal glands are unremarkable. Symmetrically enhancing kidneys. There is no hydronephrosis. Normal caliber loops of small and large bowel. Moderate to severe colonic stool burden. Normal appendix. Normal caliber abdominal aorta. No retroperitoneal lymphadenopathy. The bladder is decompressed and therefore not optimally characterized. Unremarkable CT appearance of the uterus. There is a small amount of free pelvic fluid, likely physiologic. No inguinal lymphadenopathy. No acute osseous abnormality. CT/CT abdomen pelvis w IV con IMPRESSION: Visualized lung bases are well aerated. Fleischner guidelines were followe Critical Care Time Critical Care Time Critical Care Time: Yes Total Critical Care Time: 60 Attestation: I have personally provided critical care time. Time includes review of lab data, radiology results, discussion with consultants, and monitoring for potential decompensation. Intervention performed as documented. Discharge Plan Discharge Clinical Impression: Nausea & vomiting, Abdominal pain Patient Disposition: Home, Self-Care Instructions: Acute Nausea and Vomiting (ED), Abdominal Pain (ED) Additional Instructions: Please follow-up with your primary care physician tomorrow. If you have any worsening or new symptoms, please return to the emergency room or call 911 Prescriptions: New ondansetron 4 mg tablet,disintegrating 4 mg PO Q6H PRN (Reason: nausea and vomiting) Qty: 14 0RF No Action ibuprofen 400 mg tablet 400 mg PO Q8H 7 Days Qty: 21 0RF Stand Alone Forms: Work/School Release
[2023-07-14 14:34] LABS: Lipase 11 U/L (8-78)
[2023-07-14] MEDS: 0.9 % Sodium Chloride 1,000 ML 999 ML IVCONT (14:39)
[2023-07-14] MEDS: ondansetron HCL 4 MG/2 ML VIAL IVPUSH (14:40)
[2023-07-14 14:42] VITALS: BP 98/58; PULSE 89; RESP 18; TEMP 36.8; O2SAT 98
[2023-07-14 14:44] VITALS: BP 110/64; PULSE 81; RESP 17; TEMP 36.8; O2SAT 96
[2023-07-14] MEDS: iohexoL 350 MG/ML 100 ML INFUS..BTL IV (16:11)
[2023-07-14 16:40] LABS: Appearance Urine Clear; Color Urine Yellow; Glucose Urine UA Negative (Negative); Leukocyte Esterase Urine Negative (Negative); Nitrite Urine Negative (Negative); PH >= 9.0 (5.0-9.0); Urine Blood Negative (Negative); Urine Ketones Negative (Negative); Urine Protein Negative (Neg-Trace)
[2023-07-14 17:15] LABS: Amphetamine Screen Urine Not Detected (Not Detect); Barbiturates, Urine Not Detected (Not Detect); Benzodiazepines Screen Urine Not Detected (Not Detect); Cannabinoid Screen Urine Not Detected (Not Detect); Cocaine Screen Urine Not Detected (Not Detect); Fentanyl, urine POSITIVE (Not Detect); Opiate Screen Urine POSITIVE (Not Detect); Phencyclidine Screen Urine Not Detected (Not Detect)
== END 2023-07-14 17:17 | disposition home or self-care (01) ==
PROVIDERS: Physician Assistant Medical; Emergency Provider Emergency Medicine; PCP Internal Medicine Geriatric Medicine
DX: R11.2 Nausea with vomiting, unspecified (principal); R10.33 Periumbilical pain; D72.829 Elevated white blood cell count, unspecified; F17.210 Nicotine dependence, cigarettes, uncomplicated; F11.10 Opioid abuse, uncomplicated
CPT/HCPCS: 36415; 74177; 80053; 80307; 81003; 83690; 84484; 84702; 85025; 96361; 96374; 99284; J2405; Q9967

== ENCOUNTER 2023-07-17 11:27 | Outpatient (REF) | payer MEDICAID, SELFPAY ==
[2023-07-17 13:21] LABS: MANUAL DIFF FLAG NO
[2023-07-17 13:27] LABS: Basophils Absolute Auto 0.1 X10*3/uL (0.0-0.2); Eosinophils Absolute Auto 0.5 X10*3/uL (0.0-0.4); Eosinophils Percent Auto 6.4 % (0-4); Hematocrit 37.4 % (37.0-47.0); Hemoglobin 12.3 g/dl (12.0-16.0); Imm Gran Abs Auto 0.02 X10*3/uL (0.00-0.03); Imm Gran Pct Auto 0.3 % (0.0-0.4); Lymphocytes Absolute Auto 2.7 X10*3/uL (1.2-4.9); Lymphocytes Percent Auto 36.6 % (20-40); Mean Corpuscular HGB Conc 32.9 g/dl (31.0-35.0); Mean Corpuscular Hemoglobin 29.7 pg (27.0-33.0); Mean Corpuscular Volume 90.3 fL (80.0-98.0); Mean Platelet Volume 10.2 fL (9.4-12.3); Monocytes Absolute Auto 0.7 X10*3/uL (0.1-1.2); Neutrophils Absolute Auto 3.4 x10*3/uL (2.0-8.3); Neutrophils Percent Auto 46.7 % (45-73); Platelet Count 242 X10*3/uL (160-400); Red Blood Count 4.14 X10*6/uL (4.20-5.50); Red Cell Distribution Width 12.4 % (11.0-16.0); White Blood Count 7.3 X10*3/uL (4.8-10.8)
== END 2023-07-17 11:28 | disposition home or self-care (01) ==
LOC: HO.HHCL 11:27
PROVIDERS: Visit Provider Internal Medicine Geriatric Medicine
DX: D72.829 Elevated white blood cell count, unspecified (principal)
CPT/HCPCS: 36415; 85025

== ENCOUNTER 2023-07-30 14:27 | Outpatient (REF) | payer MEDICAID, SELFPAY ==
--- NOTE | ~2023-07-30 | US_ITS ---
EXAMINATION: US DIAGNOSTIC ULTRASOUND BREAST, LEFT CLINICAL INFORMATION: 28-year-old female complaining of palpable abnormality left breast upper outer quadrant as per 's office. Patient denies being able to feel the abnormality. COMPARISON: None available. TECHNIQUE: Ultrasound of the left breast is performed with real-time benítez scale imaging and color Doppler. Attention focused on the upper outer quadrant in the purported region of palpable concern. FINDINGS: There is no focal suspicious finding. There is no solid mass, architectural abnormality, duct ectasia, or edema in the soft tissue planes. There is no cystic abnormality. There is no correlate to the purported palpable focus. US/US breast LT limited mamm only IMPRESSION: No suspicious findings in the left breast. No sonographic abnormality in the purported region of palpable concern left breast upper outer quadrant. Recommend clinical management. ASSESSMENT: BI-RADS 1 - Negative RECOMMENDATION: 1. Patient should be managed based on the clinical impression. Decision to proceed with biopsy should be based on clinical grounds and degree of clinical concern.
== END 2023-07-30 14:28 | disposition home or self-care (01) ==
LOC: HO.MAMMO 14:27
PROVIDERS: PCP Internal Medicine Geriatric Medicine; Visit Provider Internal Medicine Geriatric Medicine
DX: N64.4 Mastodynia (principal)
CPT/HCPCS: 76642

== ENCOUNTER → 2023-07-30 14:30 | Outpatient (BNV) | payer MEDICAID, SELFPAY | PROVIDERS: PCP Internal Medicine Geriatric Medicine; Visit Provider Radiology Diagnostic Radiology | DX: N63.21 Unspecified lump in the left breast, upper outer quadrant (principal) | CPT/HCPCS: 76642 ==

== ENCOUNTER 2023-07-30 16:45 | Outpatient (REF) | payer MEDICAID, SELFPAY ==
[2023-07-31 09:50] LABS: BV Int Neg Control Negative (Negative); BV Int Pos Control Positive (Positive)
== END 2023-07-30 16:46 | disposition home or self-care (01) ==
LOC: HO.HHCLNP 16:45
PROVIDERS: Visit Provider Advanced Practice Midwife
DX: Z12.4 Encounter for screening for malignant neoplasm of cervix (principal); Z11.3 Encounter for screening for infections with a predominantly sexual mode of transmission; N89.8 Other specified noninflammatory disorders of vagina
CPT/HCPCS: 87480; 87510; 87660; 88142

== ENCOUNTER → 2023-08-03 08:10 | Outpatient (REF) | payer MEDICAID, SELFPAY ==
--- NOTE | 2023-08-03 08:17 | CA_ITS ---
Transthoracic Echocardiogram Patient (Last, First, Middle): Miley Hannah A Gender: Female Date of : 1995 Age: 28 Procedure Date: 08/03/2023 Procedure Type: Transthoracic Echocardiogram Location: OP Height: 160.02 cm Weight: 46.72 kg BSA: 1.46 m2 Heart Rate: bpm BP: 100 / 62 mmHg Parcel Post Clerk: [email or web address] Referring MD: Stephanie Grvoe NEUROPSYCHIATRIC AIDE-Janey Symptoms: R07.89 - Other chest pain Study Quality: Adequate ECG Rhythm: Sinus Conclusions: - The left ventricular systolic function is normal. The calculated ejection fraction is 60% by biplane method. - No obvious valvular pathology seen on this study. Findings Left Ventricle Normal left ventricular cavity size. There is normal left ventricular wall thickness. The left ventricular systolic function is normal. The calculated ejection fraction is 60% by biplane method. There is no evidence of regional wall motion abnormalities. Diastolic function is normal for age. LV peak GLS -23.4%. Right Ventricle Normal right ventricular cavity size and systolic function. Atria Both atria are normal in size. Aortic Valve There is a normal trileaflet aortic valve. There is no aortic valve stenosis. There is no aortic valve regurgitation. Mitral Valve The mitral valve appears normal. There is no mitral valve regurgitation. There is no mitral valve stenosis. Pulmonic Valve The pulmonic valve is likely normal. Tricuspid Valve Normal tricuspid valve structure. There is trace tricuspid valve regurgitation. There is no evidence of pulmonary hypertension. Great Vessels The asc aorta is normal in size. Venous The inferior vena cava is normal in size and collapses greater than 50% with inspiration. Pericardium/Pleural There is no evidence of pericardial effusion. Prior Study Comparison No prior study available for comparison. Recommendations, Care & Conclusions No obvious valvular pathology seen on this study. Measurements 2D Linear Measurements IVSd: 0.80 0.6-0.9/0.6-1.0 cm LVIDd: 4.59 3.9-5.3/4.2-5.9 cm LVIDd Index: 3.14 2.4-3.2/2.2-3.1 cm/m2 LVIDs: 3.10 2.0-3.6 cm LVPWd: 0.72 0.7-1.1 cm LA Diam: 2.70 2.7-3.8/3.0-4.0 cm LAIDs Index: 1.85 1.5-2.3 cm/m2 LV Mass: 136.30 67-162/88-224 g LV Mass Index: 93.36 43-95/49-115 g/m2 LVOT Diam: 2.00 3.0+(-)1.3 cm 2D Systolic Function EF 4C: 63.00 >55% EF 2C: 59.40 >55% EF BiP: 59.80 >55% Mitral Valve MV Pk E: 0.85 MV PK A: 0.32 MV Decel Time: 148.00 E/A: 2.70 E'Lateral: 13.70 E'Medial: 10.90 E/E' Med: 7.80 E/E' Lat: 6.20 PHT: 43.00 MVA PHT: 5.12 Decel [place]: 5.74 Aortic Valve AoV Pk Rajat: 1.12 AoV Mn Rajat: 0.76 AoV VTI: 0.26 AoV Pk Grad: 5.00 Aov Mn Grad: 3.00 KELSIE Cont.VTI: 2.41 LVOT LVOT Pk Rajat: 0.88 LVOT Mn Rajat: 0.60 LVOT VTI: 0.20 LVOT Pk Grad: 3.00 LVOT Mn Grad: 2.00 LVOT Diam: 2.00 LVOT Area: 3.14 Diastolic Function MV Pk E: 0.85 MV Pk A: 0.32 E/A: 2.70 E'Medial: 10.90 E/E' Med: 7.80 E' Laterial: 13.70 E/E' Lat: 6.20 Right Ventricle TAPSE (mm): 21.60 TVS' Rajat: 11.20 Tricuspid Valve TR Pk Rajat: 1.87 TR Pk Grad: 14.00 RA Press: 3.00 RVSP: 17.00 Great Vessels Aorta Sinus of Valsalva: 2.77 2.0-3.[address] [place]: 2.42 1.7-3.4 cm Ao Asc: 2.50 2.1-3.4 cm Updated in Other Vendor System with Status of Final Chad Rees MD electronically signed on 08/03/2023 6:08:43 AM with status of Final
--- NOTE | 2023-08-03 08:17 | CA_ITS ---
Acquisition Time: 2023-08-03 09:00:08 Total Exercise Time: 00:09:24 Test Indications: CP Medications: SEE H Protocol: LONG Max HR: 173 BPM 90% of Pred: 191 BPM Max BP: 120/060 mmHG Max Work Load: 10.7 METS Exercise stress test exercise 9 min 24 sec of Long protocol achieving 90% MPHR, without anginal symptoms,without arrhythmias, with normotensive response to exercise, with T wave inversions leads 2, 3, aVF, V3-V6 upon standing Test reviewed with Dr. Diaz. Referred By: Stephanie Grove Overread By: Aleksandra Ferris
== END ==
LOC: HO.CARD 08:10
PROVIDERS: PCP Internal Medicine Geriatric Medicine; Visit Provider Nurse Practitioner Family
DX: R07.89 Other chest pain (principal)
CPT/HCPCS: 93017; 93306; 93356

== ENCOUNTER → 2023-08-03 08:17 | Outpatient (BNV) | payer MEDICAID, SELFPAY | PROVIDERS: PCP Internal Medicine Geriatric Medicine; Visit Provider Internal Medicine | DX: R07.89 Other chest pain (principal) | CPT/HCPCS: 93016; 93018; 93306 ==

== ENCOUNTER → 2023-08-13 15:19 | Outpatient (BNVA) | payer MEDICAID, SELFPAY | PROVIDERS: PCP Internal Medicine Geriatric Medicine; Visit Provider Nurse Practitioner Family | DX: I25.2 Old myocardial infarction (principal); R07.89 Other chest pain | CPT/HCPCS: 99212 ==

== ENCOUNTER 2023-08-13 15:21 | Outpatient (AMB) | payer MEDICAID, SELFPAY ==
[2023-08-13 15:31] VITALS: BP 94/60; PULSE 99; BMI 17.9
--- NOTE | 2023-08-13 15:31 | A.OFFVIS_ITS ---
Intake Vital Signs 3 08/13/23 15:31 Height 5 ft 3 in Weight 100 lb 15.547 oz BMI 17.9 BP 94/60 Blood Pressure Location Lt brachial Position Sitting Pulse 99 Pulse Source Pulse Oximeter Intake Visit Reasons: followup after testing Metals Sales Representative Required: Yes Metals Sales Representative Language: Deep Submergence Vehicle Crewmember Name: regan rodriguez [id number] Allergies No Known Allergies [No Known Allergies*] Allergy (Verified 08/13/23 15:33) Medication List - Last Reconciled 08/13/23 by Stephanie Grove NP-C ibuprofen 400 mg PO Q8H 7 days HPI followup after testing 2 HPI0 Details Miley is a 28-year-old female with past medical history of substance abuse, NSTEMI who has been seen in the ER on 4 occasions this past year with chest discomfort. She has ruled out for ACS. She was thought to have costochondritis. She was referred to Cardiology in follow-up. On last visit a echocardiogram and stress test were ordered. Today she reports that recently she has been feeling well. She does have some tenderness to her anterior chest wall with palpation. She is able to point out localized areas that are sensitive to touch. No exertional chest discomfort. No shortness of breath, palpitations, lightheadedness, presyncope, syncope, PND, orthopnea or edema. She walks frequently as she does not have a car. No concerning symptoms with activity. [facility] Medical History Asthma Opiate abuse, continuous No known health problems Social History Household Members: None Housing: Apartment Do you presently have visiting nurse or other home services: No Alcohol intake: never Patient Tobacco Use Status: Current everyday Tobacco user Tobacco use type: Cigarette Cigarette Packs Per Day: 0.5 Cigarettes Per Day: 10.0 Substance Use Type: Heroin service: No Current occupational status: employed Review of Systems Const All systems reviewed & are unremarkable except as noted in HPI and below ENT Denies dizziness Card Details: anterior chest wall tenderness to palpation Reports chest pain, Denies chest pain at rest, Denies chest pain with activity, Denies rapid heart rate, Denies pedal edema, Denies edema, Denies leg edema, Denies lightheadedness, Denies palpitations, Denies dyspnea, Denies dyspnea on exertion and Denies orthopnea Resp Denies cough, Denies dyspnea and Denies dyspnea on exertion GI Denies hematochezia and Denies change in stool character Musc Denies abnormal gait, Denies limited range of motion, Denies muscle cramps, Denies muscle weakness, Denies numbness, Denies radiating pain into limb, Denies stiffness and Denies tingling Neuro Denies abnormal gait, Denies dizziness, Denies numbness and Denies tingling Endo Denies palpitations Physical Exam Vital Signs: Last Vital Signs Pulse 99 08/13/23 15:31 BP 94/60 08/13/23 15:31 BMI result Body Mass Index 17.9 Const Other: Thin built General: cooperative, comfortable and no acute distress Orientation/consciousness: patient oriented x3 Neck Neck: Yes normal visual inspection Chest Other: Facial grimace to palpation of left anterior chest wall Chest/axillae images: 2 1. Resp Effort & Inspection: normal respiratory effort Auscultation: clear to auscultation bilaterally, no crackles, no rales, no rhonchi and no wheezes Cardio Jugular venous distension: no JVD Rate: regular rate Rhythm: regular rhythm Heart sounds: S1 normal heart sound present, S2 normal heart sound present, no murmurs and no rubs Neuro General: patient oriented x3 Extrem General: Yes normal to inspection, No no pedal edema and No calf tenderness Psych Appearance: grossly normal Mental Status: mental status grossly normal Speech and movement: Normal speech and movement present Assessment & Plan Assessment & Plan (1) Chest discomfort: Code(s): R07.89 - Other chest pain Plan: Report of left-sided chest discomfort, mostly chest wall however she does report pain on the inside as well. Her symptoms are intermittent, nonexertional. She does have some grimacing with palpation of the left anterior chest wall. She has been seen in the ER 4 times this past year. All troponins have been normal. She does have a history of having elevated troponin, NSTEMI 12/2020 in the setting of drug use. Echocardiogram at that time showed EF 50-55%, no valve abnormalities and no regional wall motion abnormalities. She does not know her family history or if anyone has had heart disease at a young age. For further evaluation, she underwent repeat echocardiogram on 08/03/23 showing EF 60%, no regional wall motion abnormalities and no valve abnormalities. An exercise stress test done on 08/03/2023 with exercise 9-1/2 minutes without anginal symptoms and no EKG changes that meet criteria for ischemia. Stress EKG images reviewed by me. Today she continues to have mild tenderness along various spots in the anterior chest, mostly left side. Her symptom is most likely consistent with chest wall discomfort/possible costochondritis. Instructed on use of ibuprofen 2 to 3 times a day, if needed for symptoms. Continue physical activity as tolerated. Offered reassurance that no clear cardiac issues identified. Cardiology follow-up as needed (2) Hx of non-ST elevation myocardial infarction (NSTEMI): Code(s): I25.2 - Old myocardial infarction Plan: As above. Continue complete cessation of drug use Plan Time spent on chart review, documentation, interview and assessment Coding Level of Care Code Est Pt Level 3 (85423) Diagnoses Chest discomfort R07.89 Hx of non-ST elevation myocardial infarction (NSTEMI) I25.2 Time Spent (min) 22
== END 2023-08-13 16:04 | disposition home or self-care (01) ==
PROVIDERS: PCP Internal Medicine Geriatric Medicine; Visit Provider Nurse Practitioner Family
DX: R07.89 Other chest pain (principal); I25.2 Old myocardial infarction
CPT/HCPCS: 99213

== ENCOUNTER 2023-09-13 23:16 | Emergency (ER) | payer MEDICAID, SELFPAY ==
[2023-09-13 23:17] VITALS: BP 137/65; PULSE 91; RESP 18; TEMP 36.8; O2SAT 100; BMI 19.0
[2023-09-13 23:51] LABS: MANUAL DIFF FLAG NO
[2023-09-13 23:53] LABS: Basophils Absolute Auto 0.1 X10*3/uL (0.0-0.2); Basophils Percent Auto 0.7 % (0-2); Eosinophils Absolute Auto 0.2 X10*3/uL (0.0-0.4); Eosinophils Percent Auto 1.9 % (0-4); Hematocrit 38.8 % (37.0-47.0); Imm Gran Abs Auto 0.02 X10*3/uL (0.00-0.03); Imm Gran Pct Auto 0.2 % (0.0-0.4); Lymphocytes Absolute Auto 2.7 X10*3/uL (1.2-4.9); Lymphocytes Percent Auto 23.9 % (20-40); Mean Corpuscular HGB Conc 33.5 g/dl (31.0-35.0); Mean Corpuscular Hemoglobin 29.5 pg (27.0-33.0); Mean Platelet Volume 9.8 fL (9.4-12.3); Monocytes Absolute Auto 0.7 X10*3/uL (0.1-1.2); Monocytes Percent Auto 5.8 % (2-11); Neutrophils Absolute Auto 7.6 x10*3/uL (2.0-8.3); Neutrophils Percent Auto 67.5 % (45-73); Platelet Count 213 X10*3/uL (160-400); Red Blood Count 4.41 X10*6/uL (4.20-5.50); White Blood Count 11.3 X10*3/uL (4.8-10.8)
[2023-09-13 23:54] LABS: Appearance Urine Clear; Color Urine Dark Yellow; Glucose Urine UA Negative (Negative); Leukocyte Esterase Urine Negative (Negative); Nitrite Urine Negative (Negative); PH 5.5 (5.0-9.0); Specific Gravity - Urine >= 1.030 (1.005-1.025); Urine Blood Negative (Negative); Urine Ketones Trace mg/dL (Negative); Urine Protein Trace mg/dL (Neg-Trace)
[2023-09-13 23:56] LABS: UPreg QC Valid YES; Urine Pregnancy POSITIVE (NEGATIVE)
[2023-09-13 23:57] LABS: Bacteria Urine Trace (None Seen); Hyaline Casts Urine 0-2 /LPF (0-2); RBC Urine 0-2 /HPF (0-2); WBC Urine 0-5 /HPF (0-5)
[2023-09-14 00:31] LABS: Influenza A PCR NEGATIVE (Negative); Influenza B PCR NEGATIVE (Negative); Resp Syncy Virus RNA Qual PCR NEGATIVE (Negative); SARS COV2 PCR INHOUSE NEGATIVE (Negative)
[2023-09-14 00:59] LABS: Alanine Aminotransferase 10 U/L (0-31); Albumin Level 4.2 g/dL (3.5-5.0); Alkaline Phosphatase 57 U/L (39-117); Anion Gap 12 (12-20); Aspartate Amino Transferase 12 U/L (5-31); Bilirubin Total 0.4 mg/dL (0.0-1.0); Blood Urea Nitrogen 10 mg/dL (9-16); Calcium 8.8 mg/dL (8.4-10.2); Carbon Dioxide 22 mmol/L (22-29); Chloride 109 mmol/L (96-108); Creatinine Clr Calc Pharmacy 92.1; Estimated Glomerular Filt Rate > 60; Glucose Random 117 mg/dL (60-115); Potassium 3.9 mmol/L (3.3-5.1); Sodium 139 mmol/L (135-145); Total Protein 7.2 g/dL (6.5-8.0)
[2023-09-14 01:01] LABS: HCG Quantitative 160 mIU/mL
[2023-09-14 02:45] VITALS: BP 138/68; PULSE 88; RESP 18; TEMP 36.6; O2SAT 100
--- NOTE | 2023-09-14 05:23 | ED_ITS ---
HPI - General Adult General Chief complaint: General Medical Stated complaint: Breast pain, stabbing pain Time Seen by Provider: 09/14/23 05:23 History of Present Illness HPI narrative: The patient is a 28-year-old female who presented to the emergency room this is a sense of discomfort in her breasts over the last 3 or 4 days. She says that her last normal period was about a month ago. She says that recently she has had some brown spotting but no regular menstrual blood flow. She says that she also thinks that she might have put on a slight amount of weight recently. She has not not been trying to get recently. She says that she has had intercourse very rarely with her partner recently. When told that her test today was positive she was very surprised. She has had no abdominal pain. No pelvic pain. No vaginal bleeding other than some slight brown spotting recently. Related Data Previous Rx's Medication Instructions Recorded ibuprofen 400 mg tablet 400 mg PO Q8H 7 days #21 tabs 06/08/23 Allergies Allergy/AdvReac Type Severity Reaction Status Date / Time No Known Allergies Allergy Verified 09/13/23 23:20 [No Known Allergies*] Review of Systems 2 Review of Systems: Yes all other systems are reviewed and are negative [facility] Past Medical History Medical History Asthma Opiate abuse, continuous No known health problems Social History Social History Household Members: None Housing: Apartment Do you presently have visiting nurse or other home services: No Alcohol intake: never Patient Tobacco Use Status: Current everyday Tobacco user Tobacco use type: Cigarette Cigarette Packs Per Day: 0.5 Cigarettes Per Day: 10.0 Substance Use Type: Heroin Advance Directives: No Advance Directives Information Provided: No service: No Current occupational status: employed Physical Exam ED Vital Signs: Vital Signs - 24 hr 09/13/23 23:17 09/14/23 02:45 09/14/23 05:40 Temperature 98.2 F 98 F 98.7 F Pulse Rate 91 88 18 L Respiratory Rate 18 18 78 H Blood Pressure 137/65 138/68 128/68 Pulse Oximetry 100 100 99 Oxygen Delivery Method Room Air Room Air BMI result Body Mass Index 19.0 Const Other: The patient is a the slim 28-year-old who looks as though she is ordinarily healthy. She does not in any way. HENMT Other: Face is symmetrical, mucous membranes moist Eyes Other: Pupils are round equal, conjunctivae are clear Neck Other: Moving her neck easily Resp Effort & Inspection: normal respiratory effort Auscultation: clear to auscultation bilaterally Cardio Rate: regular rate Rhythm: regular rhythm Heart sounds: S1 normal heart sound present and S2 normal heart sound present GI Other: Abdomen is soft and nontender Skin Other: Skin is dry and unremarkable Neuro Other: The patient is awake and alert with a normal mental status. Gait is normal. She is grossly neurologically intact. Extrem Other: No peripheral edema Medical Decision Making Medical Decision Making MDM Narrative: The patient is a 28-year-old woman who presented to the emergency room with a complaint of bilateral breast discomfort. She had a long wait to be seen by a provider. During that time blood testing had been sent in her beta-hCG came back at 160. When I saw her she had gotten herself dressed because she was about to walk out of the emergency room without being seen. She said that she had to get home to her children. [place] that her test was positive said that in fact she was concerned that not having a normal period currently. She says that her last normal menstrual period was about a month ago. She also said that she would recently thought she might be putting on a small amount of weight. I explained to the patient that this is a very early and that it is possible it might not be a viable . Patient was quite upset to learn that she was . She was also very eager to leave the emergency room because she had been here long time. She seems medically stable. I do not think this is likely an ectopic . I think she may be discharged with instructions to get a repeat beta-hCG in 2 days to see if this is an established or not. She was advised to contact her primary care doctor's office to try to set up a repeat beta-hCG in 2 days. If she is unable to set up a repeat beta-hCG through her primary care doctor's office she should emergency room. 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 Lab Data 09/13/23 23:42 09/13/23 23:42 Labs: Lab Results 09/13/23 09/13/23 Range/Units 23:42 23:43 WBC 11.3 H (4.8-10.8) X10*3/uL RBC 4.41 (4.20-5.50) X10*6/uL Hgb 13.0 (12.0-16.0) g/dl Hct 38.8 (37.0-47.0) % MCV 88.0 (80.0-98.0) fL MCH 29.5 (27.0-33.0) pg MCHC 33.5 (31.0-35.0) g/dl RDW 13.0 (11.0-16.0) % Plt Count 213 (160-400) X10*3/uL MPV 9.8 (9.4-12.3) fL Immature Gran % (Auto) 0.2 (0.0-0.4) % Neut % (Auto) 67.5 (45-73) % Lymph % (Auto) 23.9 (20-40) % [place] % (Auto) 5.8 (2-11) % Eos % (Auto) 1.9 (0-4) % Baso % (Auto) 0.7 (0-2) % Lymph # (Auto) 2.7 (1.2-4.9) X10*3/uL [place] # (Auto) 0.7 (0.1-1.2) X10*3/uL Eos # (Auto) 0.2 (0.0-0.4) X10*3/uL Baso # (Auto) 0.1 (0.0-0.2) X10*3/uL Abs Immat Gran (auto) 0.02 (0.00-0.03) X10*3/uL Absolute Neuts (auto) 7.6 (2.0-8.3) x10*3/uL Absolute Nucleated RBC 0.000 (0.0-0.012) X10*3/uL Nucleated RBC % (auto) 0.0 (0.0-0.2) /100WBC Sodium 139 (135-145) mmol/L Potassium 3.9 (3.3-5.1) mmol/L Chloride 109 H (96-108) mmol/L Carbon Dioxide 22 (22-29) mmol/L Anion Gap 12 (12-20) BUN 10 (9-16) mg/dL Creatinine 0.69 (0.5-1.4) mg/dL Estim Creat Clear Calc 92.1 Estimated GFR > 60 Random Glucose 117 H (60-115) mg/dL Calcium 8.8 (8.4-10.2) mg/dL Total Bilirubin 0.4 (0.0-1.0) mg/dL AST 12 (5-31) U/L ALT 10 (0-31) U/L Alkaline Phosphatase 57 (39-117) U/L Total Protein 7.2 (6.5-8.0) g/dL Albumin 4.2 (3.5-5.0) g/dL Beta HCG, Quant 160 mIU/mL Urine Color Dark Yellow Urine Appearance Clear Urine pH 5.5 (5.0-9.0) Ur Specific [place] >= 1.030 H (1.005-1.025) Urine Protein Trace (Neg-Trace) mg/dL Urine Glucose (UA) Negative (Negative) mg/dL Urine Ketones Trace (Negative) mg/dL Urine Blood Negative (Negative) Urine Nitrite Negative (Negative) Ur Leukocyte Esterase Negative (Negative) Urine RBC 0-2 (0-2) /HPF Urine WBC 0-5 (0-5) /HPF Ur Squamous Epith Cells 3-5 (0-2) /HPF Urine Bacteria Trace (None Seen) Hyaline Casts 0-2 (0-2) /LPF Urine Test POSITIVE H (NEGATIVE) Influenza Type A (PCR) NEGATIVE (Negative) Influenza Type B (PCR) NEGATIVE (Negative) RSV RNA Qual (PCR) NEGATIVE (Negative) SARS-CoV-2 RNA (RT-PCR) NEGATIVE (Negative) Discharge Plan Discharge Clinical Impression: at early stage Patient Disposition: Home, Self-Care Additional Instructions: Your blood test today indicates a very early stage of . Blood test you had today is called beta-hCG. Your beta HCG value today is 160. This is a very low number indicating a very early stage of . It is possible this could also indicate a which is not likely to progress. At this point you should get a repeat blood test on Thursday to see if this number is increasing in a manner consistent with a normal or not. Please contact your regular doctor's office today to try to arrange a repeat beta-hCG blood test on Thursday. If you are unable to get this blood test done through your regular doctor's office please return to the emergency room and have it done here. Return to the emergency room at any point if you develop abdominal pain. Prescriptions: No Action ibuprofen 400 mg tablet 400 mg PO Q8H 7 Days Qty: 21 0RF Referrals: Name,MD Mann [Primary Care Provider] - (Very early ) Interventions: ED Discharge Assessment Last Done: 09/14/23 05:40 Discharge Date/Time: 09/14/23 05:43
[2023-09-14 05:40] VITALS: BP 128/68; PULSE 18; RESP 78; TEMP 37.1; O2SAT 99
== END 2023-09-14 05:43 | disposition home or self-care (01) ==
PROVIDERS: Emergency Provider Emergency Medicine; PCP Internal Medicine Geriatric Medicine
DX: O99.891 Other specified diseases and conditions complicating pregnancy (principal); N64.4 Mastodynia; Z3A.00 Weeks of gestation of pregnancy not specified; Z11.52 Encounter for screening for COVID-19; Z20.828 Contact with and (suspected) exposure to other viral communicable diseases
CPT/HCPCS: 0241U; 80053; 81001; 81025; 84702; 85025; 99283

== ENCOUNTER 2023-09-19 18:01 | Emergency (ER) | payer MEDICAID, SELFPAY ==
[2023-09-19 18:27] VITALS: BP 114/72; PULSE 77; RESP 18; TEMP 37; O2SAT 98; BMI 18.5
[2023-09-19 18:45] LABS: MANUAL DIFF FLAG NO
[2023-09-19 19:00] LABS: Basophils Absolute Auto 0.1 X10*3/uL (0.0-0.2); Basophils Percent Auto 0.8 % (0-2); Eosinophils Absolute Auto 0.3 X10*3/uL (0.0-0.4); Hematocrit 39.9 % (37.0-47.0); Hemoglobin 13.4 g/dl (12.0-16.0); Imm Gran Abs Auto 0.06 X10*3/uL (0.00-0.03); Imm Gran Pct Auto 0.7 % (0.0-0.4); Mean Corpuscular HGB Conc 33.6 g/dl (31.0-35.0); Mean Corpuscular Volume 89.5 fL (80.0-98.0); Mean Platelet Volume 9.8 fL (9.4-12.3); Monocytes Absolute Auto 0.7 X10*3/uL (0.1-1.2); Monocytes Percent Auto 8.6 % (2-11); Neutrophils Absolute Auto 4.5 x10*3/uL (2.0-8.3); Neutrophils Percent Auto 51.9 % (45-73); Platelet Count 249 X10*3/uL (160-400); Red Blood Count 4.46 X10*6/uL (4.20-5.50); White Blood Count 8.6 X10*3/uL (4.8-10.8)
[2023-09-19 19:11] LABS: Alanine Aminotransferase 8 U/L (0-31); Albumin Level 4.5 g/dL (3.5-5.0); Alkaline Phosphatase 60 U/L (39-117); Anion Gap 10 (12-20); Aspartate Amino Transferase 14 U/L (5-31); Bilirubin Total 0.7 mg/dL (0.0-1.0); Blood Urea Nitrogen 7 mg/dL (9-16); Calcium 9.5 mg/dL (8.4-10.2); Carbon Dioxide 25 mmol/L (22-29); Chloride 108 mmol/L (96-108); Creatinine Clr Calc Pharmacy 101.7; Estimated Glomerular Filt Rate > 60; Glucose Random 84 mg/dL (60-115); HCG Quantitative 51 mIU/mL; Potassium 3.4 mmol/L (3.3-5.1); Sodium 140 mmol/L (135-145); Total Protein 7.7 g/dL (6.5-8.0)
--- NOTE | 2023-09-19 19:24 | ED_ITS ---
HPI - Female Genitourinary General Chief complaint: Vaginal Bleeding Stated complaint: , bleeding, has pain Time Seen by Provider: 09/19/23 19:22 Source: patient Mode of arrival: ambulatory Limitations: no limitations History of Present Illness HPI Narrative: 28-year-old female , asthma, opiate use disorder who presents emergency department for evaluation vaginal bleeding and lower abdominal pain. The patient was seen in the emergency department on 09/14/2023 (5 days prior for breast pain, lower abdominal pain and vaginal bleeding. At that time the patient had a beta-hCG which was 160 and she was told that she may be and she should return if her pain or bleeding got worse. The patient states that she now has bright red blood vaginally and has lower abdominal cramping. She states that the cramping sensation is a constant, pressure-like pain. She states the pain is [id number] in intensity. She denied fever, chills, nausea, vomiting, frequency, urgency or dysuria. Related Data Previous Rx's Medication Instructions Recorded ibuprofen 400 mg tablet 400 mg PO Q8H 7 days #21 tabs 06/08/23 acetaminophen 500 mg tablet 1,000 mg (2 x 500 mg) PO Q6H PRN 09/19/23 (Tylenol Extra Strength) fever or pain #20 tabs ibuprofen 400 mg tablet 400 mg PO TID PRN fever or pain 09/19/23 #30 tabs Allergies Allergy/AdvReac Type Severity Reaction Status Date / Time No Known Allergies Allergy Verified 09/13/23 23:20 [No Known Allergies*] Review of Systems 2 Review of Systems: Yes all other systems are reviewed and are negative COUNT INCLUDES [facility] Past Medical History COUNT INCLUDES THE [facility] Narrative: Past medical history: Asthma, opiate use disorder. Social history: She does smoke cigarettes, she denies alcohol use. She denies drug use. Medical History Asthma Opiate abuse, continuous No known health problems Social History Social History Household Members: None Housing: Apartment Do you presently have visiting nurse or other home services: No Alcohol intake: never Patient Tobacco Use Status: Current everyday Tobacco user Tobacco use type: Cigarette Cigarette Packs Per Day: 0.5 Cigarettes Per Day: 10.0 Smoked in Last 30 Days: No Use of substances other than those prescribed or required for medical reasons: No Substance Use Type: Heroin Advance Directives: No Advance Directives Information Provided: No service: No Current occupational status: employed Physical Exam 2 Vital Signs: Vital Signs: Last Vital Signs Temp 98.7 F 09/19/23 20:41 Pulse 92 09/19/23 20:41 Resp 14 09/19/23 20:41 BP 111/68 09/19/23 20:41 Pulse Ox 100 09/19/23 20:41 O2 Del Method Room Air 09/19/23 20:41 BMI result Body Mass Index 18.5 Vital signs were normal Exam: General: Awake, alert in no distress, low BMI 18.5 Head: Normocephalic, atraumatic EENT: PERRL, Lids normal, sclera normal, conjunctiva normal, nose normal , ears normal, throat without erythema or exudates Neck: Supple, no adenopathy Lung: breath sounds symmetric, no wheezing, rales or rhonchi Chest: symmetric movement, nontender Heart: regular rate and rhythm, normal S1, S2 no murmurs or rubs Abdomen: soft, mild suprapubic tenderness, nondistended, normal bowel sounds Back: no vertebral tenderness, no CVAT Extremities: no deformities, moves all extremities symmetrically Neuro: Awake, alert, oriented, normal speech, cranial nerves intact, moves all extremities symmetrically Psych: Pleasant, cooperative Medications Administered Discontinued Medications Generic Name Dose Route Start Last Admin Trade Name Freq PRN Reason Stop Dose Admin Ibuprofen 400 mg 09/19/23 19:46 09/19/23 20:19 Ibuprofen 400 Mg Tablet PO 09/19/23 19:47 400 mg ONCE STA Administration Medical Decision Making Medical Decision Making [facility] Narrative: 28-year-old female , asthma, opiate use disorder who presents emergency department for evaluation vaginal bleeding and lower abdominal pain. The patient was seen in the emergency department on 09/14/2023 (5 days prior for breast pain, lower abdominal pain and vaginal bleeding and was found to have a quantitative beta-hCG of 160, patient returns for evaluation of increased vaginal bleeding and abdominal pain. Patient had no other significant symptoms. Vital signs were normal. Exam did reveal mild suprapubic tenderness otherwise was unremarkable. Differential diagnosis: ?Includes but is not limited to , ectopic , miscarriage, menstrual period Following evaluation was ordered: CBC, CMP, quantitative beta hCG, ABO Rh type Patient was initially treated with the following: Ibuprofen 400 mg orally Course: 19:55 My interpretation patient's laboratory evaluation as follows: WBC was normal 8600. Mild anemia with an H&H of 13.4 and 39. Normal platelet count 249,000. CMP was normal. Quantitative beta-hCG 51 which is lower than previous quantitative beta hCG of 160. Given the patient[place] [id number] I suspect that the patient has had a miscarriage and I did discuss this with her. The patient did have a negative quantitative beta-hCG in June 2023. Ibuprofen 400 mg orally. Patient did have an ABO Rh type drawn but this is pending. Patient was discharged home with a prescription for ibuprofen and Tylenol, she was advised to follow-up with our [facility] planning for re-evaluation 21:28 Patient's blood type is AB-positive and I did inform her of this result Admission/Observation Consideration of admission/observation: Escalation of care including admission/observation considered Lab Data MDM Lab Attestation statement: I reviewed the patient's lab results. 09/19/23 18:42 09/19/23 18:42 Labs: Lab Results 09/19/23 09/19/23 Range/Units 18:42 19:59 WBC 8.6 (4.8-10.8) X10*3/uL RBC 4.46 (4.20-5.50) X10*6/uL Hgb 13.4 (12.0-16.0) g/dl Hct 39.9 (37.0-47.0) % MCV 89.5 (80.0-98.0) fL MCH 30.0 (27.0-33.0) pg MCHC 33.6 (31.0-35.0) g/dl RDW 13.0 (11.0-16.0) % Plt Count 249 (160-400) X10*3/uL MPV 9.8 (9.4-12.3) fL Immature Gran % (Auto) 0.7 H (0.0-0.4) % Neut % (Auto) 51.9 (45-73) % Lymph % (Auto) 35.0 (20-40) % [place] % (Auto) 8.6 (2-11) % Eos % (Auto) 3.0 (0-4) % Baso % (Auto) 0.8 (0-2) % Lymph # (Auto) 3.0 (1.2-4.9) X10*3/uL [place] # (Auto) 0.7 (0.1-1.2) X10*3/uL Eos # (Auto) 0.3 (0.0-0.4) X10*3/uL Baso # (Auto) 0.1 (0.0-0.2) X10*3/uL Abs Immat Gran (auto) 0.06 H (0.00-0.03) X10*3/uL Absolute Neuts (auto) 4.5 (2.0-8.3) x10*3/uL Absolute Nucleated RBC 0.000 (0.0-0.012) X10*3/uL Nucleated RBC % (auto) 0.0 (0.0-0.2) /100WBC Sodium 140 (135-145) mmol/L Potassium 3.4 (3.3-5.1) mmol/L Chloride 108 (96-108) mmol/L Carbon Dioxide 25 (22-29) mmol/L Anion Gap 10 L (12-20) BUN 7 L (9-16) mg/dL Creatinine 0.61 (0.5-1.4) mg/dL Estim Creat Clear Calc 101.7 Estimated GFR > 60 Random Glucose 84 (60-115) mg/dL Calcium 9.5 D (8.4-10.2) mg/dL Total Bilirubin 0.7 (0.0-1.0) mg/dL AST 14 (5-31) U/L ALT 8 (0-31) U/L Alkaline Phosphatase 60 (39-117) U/L Total Protein 7.7 (6.5-8.0) g/dL Albumin 4.5 (3.5-5.0) g/dL Beta HCG, Quant 51 mIU/mL Blood Type AB Positive Independent Historian Clinical information obtained from an independent historian. History obtained from or confirmed by: Parent Prescription Management I considered prescription management with: Pain Medication Discharge Plan Discharge Clinical Impression: Miscarriage Patient Disposition: Home, Self-Care Additional Instructions: Your red blood cell count was normal, you are not anemic Your blood test (quantitative beta-hCG) was 160 on 09/14/2023 and is 51 today. This decrease in number means that you had a miscarriage. A miscarriage is a natural process and this occurs in 20% of pregnancies. Do not use tampons but use pads for the menstrual bleeding Take ibuprofen 4 mg pills, 1 pills every 6 hours as needed for pain or fever. Take Tylenol (acetaminophen) 500 mg pills, 2 pills every 6 hours as needed for pain or fever. Follow-up with our executive community planning in 1 week for re-evaluation Please return to the emergency department if your symptoms get worse or if you develop any symptoms that are concerning to you. I will text or call you with your blood type. If you have a negative blood type then you will need to come back to the emergency department for a RhoGAM shot otherwise if if your blood type is positive then you will not need a sharp Prescriptions: New acetaminophen [Tylenol Extra Strength] 500 mg tablet 1,000 mg PO Q6H PRN (Reason: fever or pain) Qty: 20 0RF ibuprofen 400 mg tablet 400 mg PO TID PRN (Reason: fever or pain) Qty: 30 0RF No Action ibuprofen 400 mg tablet 400 mg PO Q8H 7 Days Qty: 21 0RF Referrals: Meño Monsivais MD [Physician] - 1 week (Miscarriage, quantitative beta-hCG 160 on 09/14/2023 and on 09/19/2023) Interventions: ED Discharge Assessment Last Done: 09/19/23 20:41 Discharge Date/Time: 09/19/23 20:42
[2023-09-19] MEDS: Ibuprofen 400 MG TABLET PO (20:19)
[2023-09-19 20:41] VITALS: BP 111/68; PULSE 92; RESP 14; TEMP 37.1; O2SAT 100
== END 2023-09-19 20:42 | disposition home or self-care (01) ==
PROVIDERS: Emergency Provider Emergency Medicine Emergency Medical Services; PCP Internal Medicine Geriatric Medicine
DX: O03.9 Complete or unspecified spontaneous abortion without complication (principal)
CPT/HCPCS: 36415; 80053; 84702; 85025; 86900; 86901; 99283; 99284

== ENCOUNTER 2023-09-23 11:14 | Outpatient (REF) | payer MEDICAID, SELFPAY ==
[2023-09-23 12:04] LABS: HCG Quantitative 12 mIU/mL
[2023-09-23 18:34] LABS: CT PCR NOT DETECTED (Not Detect.); NG PCR NOT DETECTED (Not Detect.)
== END 2023-09-23 11:15 | disposition home or self-care (01) ==
LOC: HO.LAB 11:14
PROVIDERS: PCP Internal Medicine Geriatric Medicine; Visit Provider Obstetrics & Gynecology
DX: O03.9 Complete or unspecified spontaneous abortion without complication (principal)
CPT/HCPCS: 0353U; 36415; 84702; 99202

== ENCOUNTER 2023-09-23 15:19 | Outpatient (AMB) | payer MEDICAID, SELFPAY ==
[2023-09-23 15:26] VITALS: BP 106/66; BMI 18.2
--- NOTE | 2023-09-23 15:26 | A.OFFVIS_ITS ---
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 HCG dropped from 160 on 09/12 down to 51 on 09/18. AB-positive, H&H was 13.4/39.9. Since then the patient has bleeding and cramping has low done markedly today's hCG dropped down to 20 PFSH Medical History Asthma Opiate abuse, continuous No known health problems Social History Household Members: None Housing: Apartment Do you presently have visiting nurse or other home services: No Alcohol intake: never Patient Tobacco Use Status: Current everyday Tobacco user Tobacco use type: Cigarette Cigarette Packs Per Day: 0.5 Cigarettes Per Day: 10.0 Substance Use Type: Heroin service: No Current occupational status: employed Female Reproductive History Menstrual Date of last menstrual period: 09/21/23 Total pregnancies: 2 Full term: 1 Number of Living Children: 1 Ab spontaneous: 1 Review of Systems Const All systems reviewed & are unremarkable except as noted in HPI and below Physical Exam General: Yes no CVA tenderness External Female Exam: normal external appearance and normal appearance of the urethra Speculum Exam - Vagina: normal appearance of the vagina, normal palpation, no lesions and no masses Speculum Exam - Cervix: normal appearance of the cervix, normal palpation, no lesions, no masses and nontender Bimanual exam- vagina & uterus: normal bimanual exam, normal palpation, uterine size normal, normal palpation, uterine shape normal, No Cervical tenderness present and non-tender Bimanual Exam- Adnexa, other: normal adnexae Back/Spine/Pelvis Back: no CVA tenderness Assessment & Plan Assessment & Plan (1) Miscarriage: Code(s): O03.9 - Complete or unspecified spontaneous without complication Plan: GC/CT taken. Will repeat hCG a week and follow up with down to non levels. Signs and symptoms of incomplete were given to the patient, she is to call or go to emergency room in case of pelvic pain and or vaginal bleeding. All questions answered, the patient verbalized understanding Orders: Orders HCG Quantitative 1 Week O03.9 - Complete or unspecified spontaneous without complication Coding Level of Care Code New Pt Level 3 (63608) Diagnoses Miscarriage O03.9
== END 2023-09-23 16:07 | disposition home or self-care (01) ==
LOC: HO.HWS 15:19
PROVIDERS: PCP Internal Medicine Geriatric Medicine; Referring Provider Internal Medicine Geriatric Medicine; Visit Provider Obstetrics & Gynecology
DX: O03.9 Complete or unspecified spontaneous abortion without complication (principal)
CPT/HCPCS: 99203

== ENCOUNTER 2023-09-23 15:44 | Outpatient (REF) | payer MEDICAID, SELFPAY | END 2023-09-23 15:45 | disposition home or self-care (01) | LOC: HO.LNP 15:44 | PROVIDERS: Visit Provider Obstetrics & Gynecology | DX: Z13.89 Encounter for screening for other disorder (principal) ==

== ENCOUNTER 2023-09-25 18:08 | Emergency (ER) | payer MEDICAID, SELFPAY ==
[2023-09-25 18:45] VITALS: BP 113/64; PULSE 113; RESP 14; TEMP 37.5; O2SAT 96; BMI 18.6
--- NOTE | 2023-09-25 18:49 | ED_ITS ---
HPI - General Adult General Chief complaint: Upper Respiratory Symptoms Stated complaint: swollen throat, feels like ulcers are there? Time Seen by Provider: 09/25/23 19:46 Source: patient, RN notes reviewed and old records reviewed Mode of arrival: ambulatory Limitations: no limitations History of Present Illness HPI narrative: 28-year-old female presents for evaluation of a sore throat for the last 2-3 days. Patient reports that it started mild but today became severe and she is having difficulty swallowing She denies any fevers, chills Denies any sick contacts She denies any other complaints or concerns Related Data Previous Rx's ?Medication ?Instructions ?Recorded acetaminophen 500 mg tablet 1,000 mg (2 x 500 mg) PO Q6H PRN 09/19/23 (Tylenol Extra Strength) fever or pain #20 tabs ibuprofen 400 mg tablet 400 mg PO TID PRN fever or pain 09/19/23 #30 tabs amoxicillin 875 mg-potassium 1 tab PO Q12H #14 tabs 09/25/23 clavulanate 125 mg tablet Allergies Allergy/AdvReac Type Severity Reaction Status Date / Time No Known Allergies Allergy Verified 09/25/23 18:52 [No Known Allergies*] Review of Systems Constitutional: Constitutional: Denies chills and Denies fever(s) ENT: Reports sore throat Cardiovascular: Cardiovascular: Denies chest pain and Denies dyspnea Respiratory: Respiratory: Denies cough and Denies dyspnea Gastrointestinal: Gastrointestinal: Denies abdominal pain, Denies nausea and Denies vomiting Musculoskeletal: Musculoskeletal: Denies back pain Integumentary/Breasts: Skin/Breast: Denies rash PMFSH Past Medical History Medical History Asthma Opiate abuse, continuous No known health problems Social History Social History Household Members: None Housing: Apartment Do you presently have visiting nurse or other home services: No Alcohol intake: never Patient Tobacco Use Status: Current everyday Tobacco user Tobacco use type: Cigarette Cigarette Packs Per Day: 0.5 Cigarettes Per Day: 10.0 Substance Use Type: Heroin Advance Directives: No Advance Directives Information Provided: No service: No Current occupational status: employed Physical Exam ED Vital Signs: Vital Signs - 24 hr 09/25/23 18:45 09/25/23 20:19 Temperature 99.5 F 98.0 F Pulse Rate 113 H 104 H Respiratory Rate 14 17 Blood Pressure 113/64 106/58 L Pulse Oximetry 96 100 Oxygen Delivery Method Room Air Room Air BMI result Body Mass Index 18.6 Const General: healthy appearing, comfortable, no acute distress, alert and awake Nutritional Appearance: well nourished Orientation/consciousness: patient oriented x3 HENMT Other: Retro pharynx is erythematous with bilateral tonsillar hypertrophy, right greater than left and whitish exudates. No evidence of peritonsillar abscess. Positive right-sided peritonsillar lymphadenopathy Head: Yes normocephalic and Yes atraumatic Eyes Eyelids: Yes eyelids normal Conjunctivae: conjunctivae normal Sclerae: sclerae normal Corneas: corneas normal Pupils: Equal, round and reactive pupils present EOM: EOMs intact bilaterally Neck Neck: Yes full ROM Resp Effort & Inspection: normal respiratory effort, able to speak in complete sentences and not labored Cardio Rate: regular rate Rhythm: regular rhythm Skin General skin exam: no rashes or lesions noted Neuro General: patient oriented x3 Cranial nerves: Yes Equal, round and reactive pupils present and Yes Bilaterally intact EOM present Cognition (Neuro): normal cognition Extrem Other: Moving all extremities well without any obvious deformities Course Course Course Narrative: RME performed by Vibha Oliveira PA-C. Patient is a 28 year old assigned female at presenting to the emergency department with a sore throat and a headache. Detailed physical exam and review of systems are deferred to the primary class teacher. Swabs ordered. Patient placed back in the waiting room pending room availability and results. Medications Administered Discontinued Medications Generic Name Dose Route Start Last Admin Trade Name Freq PRN Reason Stop Dose Admin Amoxicillin/Clavulanate Potassium 875 mg 09/25/23 19:53 09/25/23 20:15 Amoxicillin/Potassium Clav 875 Mg Tablet PO 09/25/23 19:54 875 mg ONCE ONE Administration Ibuprofen 400 mg 09/25/23 19:53 09/25/23 20:15 Ibuprofen 400 Mg Tablet PO 09/25/23 19:54 400 mg ONCE ONE Administration Medical Decision Making Medical Decision Making MDM Narrative: Patient tested positive for strep throat, she has no evidence of peritonsillar abscess. She has pain with swallowing but is able to swallow. Will treat with Augmentin b.i.d. x7 days. Differential Diagnosis Differential Diagnoses: The differential diagnosis associated with the presentation includes Strep pharyngitis Upper respiratory infection Viral syndrome Peritonsillar abscess Lab Data Labs: Lab Results 09/25/23 Range/Units 19:11 Influenza Type A (PCR) NEGATIVE (Negative) Influenza Type B (PCR) NEGATIVE (Negative) RSV RNA Qual (PCR) NEGATIVE (Negative) SARS-CoV-2 RNA (RT-PCR) NEGATIVE (Negative) S. pyogenes GrpA CONCHITA Positive A (Negative) Discharge Plan Discharge Clinical Impression: Acute streptococcal pharyngitis Patient Disposition: Home, Self-Care Instructions: Strep Throat (ED) Additional Instructions: You tested positive for strep pharyngitis. Take Augmentin twice daily for the next 7 days Use ibuprofen/Tylenol for pain, fevers You may also use saltwater gargles I recommend that you get a new toothbrush after you take your last dose of antibiotics Prescriptions: New amoxicillin-pot clavulanate 875-125 mg tablet 1 tab PO Q12H Qty: 14 0RF No Action acetaminophen [Tylenol Extra Strength] 500 mg tablet 1,000 mg PO Q6H PRN (Reason: fever or pain) Qty: 20 0RF ibuprofen 400 mg tablet 400 mg PO TID PRN (Reason: fever or pain) Qty: 30 0RF Interventions: ED Discharge Assessment Last Done: 09/25/23 20:19 Discharge Date/Time: 09/25/23 20:20 Print Language: Kiswahili
--- NOTE | 2023-09-25 19:14 | MHC.EDTECH ---
Patient brought into triage area,sars/flu/rsv, and strep swabs obtained and sent to lab.
[2023-09-25 19:19] LABS: IDNOW Serial# 58CA691E; Strep A Nucleic Acid Positive (Negative)
[2023-09-25 19:52] LABS: Influenza A PCR NEGATIVE (Negative); Influenza B PCR NEGATIVE (Negative); Resp Syncy Virus RNA Qual PCR NEGATIVE (Negative); SARS COV2 PCR INHOUSE NEGATIVE (Negative)
[2023-09-25] MEDS: Amoxicillin/Potassium Clav 875 MG TABLET PO (20:15)
[2023-09-25] MEDS: Ibuprofen 400 MG TABLET PO (20:15)
[2023-09-25 20:19] VITALS: BP 106/58; PULSE 104; RESP 17; TEMP 36.7; O2SAT 100
== END 2023-09-25 20:20 | disposition home or self-care (01) ==
PROVIDERS: Physician Assistant Medical; Emergency Provider Emergency Medicine; PCP Internal Medicine Geriatric Medicine
DX: J02.0 Streptococcal pharyngitis (principal); J45.909 Unspecified asthma, uncomplicated
CPT/HCPCS: 0241U; 87651; 99283

== ENCOUNTER 2023-10-06 11:38 | Outpatient (REF) | payer MEDICAID, SELFPAY ==
[2023-10-06 13:20] LABS: HCG Quantitative < 2 mIU/mL
== END 2023-10-06 11:39 | disposition home or self-care (01) ==
LOC: HO.LAB 11:38
PROVIDERS: PCP Internal Medicine Geriatric Medicine; Visit Provider Obstetrics & Gynecology
DX: O03.9 Complete or unspecified spontaneous abortion without complication (principal)
CPT/HCPCS: 36415; 84702

== ENCOUNTER 2023-10-07 15:19 | Outpatient (AMB) | payer MEDICAID, SELFPAY ==
[2023-10-07 15:23] VITALS: BP 102/60; BMI 18.4
--- NOTE | 2023-10-07 15:23 | MHC.OFFVIS ---
Intake Vital Signs 10/07/23 15:23 Height 5 ft 3 in Weight 103 lb 9.876 oz BMI 18.4 BP 102/60 Intake Visit Reasons: HCG follow up Allergies No Known Allergies [No Known Allergies*] Allergy (Verified 09/25/23 18:52) HPI HPI Comments History of Present Illness Details Presenting for hCG follow-up with no complaints, no vaginal bleeding pelvic cramping or any other concerns. HCG done today was less than 2 PFSH Medical History Asthma Opiate abuse, continuous No known health problems Social History Household Members: None Housing: Apartment Do you presently have visiting nurse or other home services: No Alcohol intake: never Patient Tobacco Use Status: Current everyday Tobacco user Tobacco use type: Cigarette Cigarette Packs Per Day: 0.5 Cigarettes Per Day: 10.0 Substance Use Type: Heroin service: No Current occupational status: employed Review of Systems Const All systems reviewed & are unremarkable except as noted in HPI and below Reports as per HPI and Reports no additional complaints GI Reports no additional complaints Reports no additional complaints Physical Exam Vital Signs: Last Vital Signs BP 102/60 10/07/23 15:23 BMI result Body Mass Index 18.4 Assessment & Plan Assessment & Plan (1) Miscarriage: Code(s): O03.9 - Complete or unspecified spontaneous without complication Plan: Discussed with the patient the results of hCG less than 2, the patient was reassured. Offer the patient different options of control, the patient declined at this point. All questions answered, the patient verbalized understanding. Coding Level of Care Code Est Pt Level 3 (55993) Diagnoses Miscarriage O03.9
== END 2023-10-08 07:26 | disposition home or self-care (01) ==
LOC: HO.HWS 15:19
PROVIDERS: PCP Internal Medicine Geriatric Medicine; Referring Provider Internal Medicine Geriatric Medicine; Visit Provider Obstetrics & Gynecology
DX: O03.9 Complete or unspecified spontaneous abortion without complication (principal)
CPT/HCPCS: 99213

== ENCOUNTER → 2023-10-07 15:19 | Outpatient (BNVA) | payer MEDICAID, SELFPAY | PROVIDERS: PCP Internal Medicine Geriatric Medicine; Visit Provider Obstetrics & Gynecology | DX: O03.9 Complete or unspecified spontaneous abortion without complication (principal) | CPT/HCPCS: 99212 ==

== ENCOUNTER 2023-12-16 22:20 | Emergency (ER) | payer MEDICAID, SELFPAY ==
--- NOTE | 2023-12-16 | ECG_ITS ---
Test Reason : CP Blood Pressure : / mmHG Vent. Rate : 081 BPM Atrial Rate : 081 BPM P-R Int : 146 ms QRS Dur : 084 ms QT Int : 364 ms P-R-T Axes : 059 058 046 degrees QTc Int : 422 ms Normal sinus rhythm with sinus arrhythmia Normal ECG When compared with ECG of 11-MAY-2023 19:01, No significant change was found Referred By: Generic ED Physician Electronically Signed By:JAVIER MENEZES MD
--- NOTE | ~2023-12-16 | XR_ITS ---
EXAMINATION: XR CHEST, 2 VIEWS CLINICAL INFORMATION: Chest pain. COMPARISON: 05/11/2023 TECHNIQUE: PA and lateral views of the chest were obtained. FINDINGS: Lungs are clear. No consolidation, pneumothorax, or pleural effusion. Cardiac and mediastinal contours are normal. Pulmonary vasculature is unremarkable. Trachea is midline. Osseous structures are unremarkable. XR/XR chest 2V IMPRESSION: Normal chest radiographs.
[2023-12-16 22:37] VITALS: BP 105/72; PULSE 83; RESP 18; TEMP 36.8; O2SAT 100; BMI 18.9
[2023-12-16 23:08] LABS: Basophils Absolute Auto 0.1 X10*3/uL (0.0-0.2); Eosinophils Absolute Auto 0.4 X10*3/uL (0.0-0.4); Eosinophils Percent Auto 4.7 % (0-4); Hematocrit 38.1 % (37.0-47.0); Hemoglobin 12.6 g/dl (12.0-16.0); Imm Gran Abs Auto 0.01 X10*3/uL (0.00-0.03); Imm Gran Pct Auto 0.1 % (0.0-0.4); Lymphocytes Absolute Auto 3.2 X10*3/uL (1.2-4.9); Lymphocytes Percent Auto 41.3 % (20-40); MANUAL DIFF FLAG NO; Mean Corpuscular HGB Conc 33.1 g/dl (31.0-35.0); Mean Corpuscular Volume 90.7 fL (80.0-98.0); Mean Platelet Volume 9.8 fL (9.4-12.3); Monocytes Absolute Auto 0.7 X10*3/uL (0.1-1.2); Neutrophils Absolute Auto 3.3 x10*3/uL (2.0-8.3); Neutrophils Percent Auto 43.9 % (45-73); Platelet Count 209 X10*3/uL (160-400); Red Cell Distribution Width 12.7 % (11.0-16.0); White Blood Count 7.6 X10*3/uL (4.8-10.8)
[2023-12-16 23:26] LABS: Alanine Aminotransferase 9 U/L (0-31); Albumin Level 4.3 g/dL (3.5-5.0); Alkaline Phosphatase 56 U/L (39-117); Anion Gap 10 (12-20); Aspartate Amino Transferase 19 U/L (5-31); Bilirubin Direct 0.1 mg/dL (0.0-0.5); Bilirubin Total 0.4 mg/dL (0.0-1.0); Blood Urea Nitrogen 9 mg/dL (9-16); Calcium 9.2 mg/dL (8.4-10.2); Carbon Dioxide 26 mmol/L (22-29); Chloride 108 mmol/L (96-108); Creatinine Clr Calc Pharmacy 89.1; Estimated Glomerular Filt Rate > 60; Glucose Random 104 mg/dL (60-115); Lipase 14 U/L (8-78); Potassium 4.1 mmol/L (3.3-5.1); Sodium 140 mmol/L (135-145); Total Protein 7.6 g/dL (6.5-8.0)
[2023-12-16 23:36] LABS: Troponin-I High Sensitivity < 2.7 ng/L (<3.5-17.0)
[2023-12-17 00:20] VITALS: BP 104/58; PULSE 82; RESP 16; TEMP 36.8; O2SAT 98
--- NOTE | 2023-12-17 00:25 | MHC.EDTECH ---
THIS PCT JUST ASSUMED CARE OF PATIENT ,VITALS TAKEN AND PATIENT WAS HOOKED UP TO PHONE MANAGER ,PATIENT RESTING QUIETLY IN BED ,CALL REMY WITHIN PATIENT REACH .
== END 2023-12-17 01:56 | disposition home or self-care (01) ==
PROVIDERS: Emergency Provider Emergency Medicine; PCP Internal Medicine Geriatric Medicine
DX: R07.89 Other chest pain (principal); I25.2 Old myocardial infarction; J45.909 Unspecified asthma, uncomplicated; F17.210 Nicotine dependence, cigarettes, uncomplicated; F11.20 Opioid dependence, uncomplicated
CPT/HCPCS: 36415; 71046; 80048; 80076; 83690; 84484; 85025; 93005; 99283

== ENCOUNTER → 2023-12-16 22:21 | Outpatient (BNV) | payer MEDICAID, SELFPAY | PROVIDERS: Emergency Provider Emergency Medicine; PCP Internal Medicine Geriatric Medicine; Visit Provider Internal Medicine Cardiovascular Disease | DX: R07.9 Chest pain, unspecified (principal) | CPT/HCPCS: 93010 ==

== ENCOUNTER 2023-12-28 16:03 | Outpatient (REF) | payer MEDICAID, SELFPAY ==
[2023-12-28 17:42] LABS: MANUAL DIFF FLAG NO
[2023-12-28 17:54] LABS: Basophils Absolute Auto 0.1 X10*3/uL (0.0-0.2); Basophils Percent Auto 0.9 % (0-2); Eosinophils Absolute Auto 0.3 X10*3/uL (0.0-0.4); Eosinophils Percent Auto 3.9 % (0-4); Hematocrit 40.4 % (37.0-47.0); Hemoglobin 13.1 g/dl (12.0-16.0); Imm Gran Abs Auto 0.02 X10*3/uL (0.00-0.03); Imm Gran Pct Auto 0.2 % (0.0-0.4); Lymphocytes Percent Auto 34.7 % (20-40); Mean Corpuscular HGB Conc 32.4 g/dl (31.0-35.0); Mean Corpuscular Hemoglobin 29.6 pg (27.0-33.0); Mean Corpuscular Volume 91.4 fL (80.0-98.0); Mean Platelet Volume 10.2 fL (9.4-12.3); Monocytes Absolute Auto 0.4 X10*3/uL (0.1-1.2); Monocytes Percent Auto 5.1 % (2-11); Neutrophils Absolute Auto 4.8 x10*3/uL (2.0-8.3); Neutrophils Percent Auto 55.2 % (45-73); Platelet Count 264 X10*3/uL (160-400); Red Blood Count 4.42 X10*6/uL (4.20-5.50); White Blood Count 8.6 X10*3/uL (4.8-10.8)
[2023-12-28 18:46] LABS: Alanine Aminotransferase 8 U/L (0-31); Albumin Level 4.5 g/dL (3.5-5.0); Alkaline Phosphatase 61 U/L (39-117); Anion Gap 10 (12-20); Aspartate Amino Transferase 16 U/L (5-31); Bilirubin Total 0.4 mg/dL (0.0-1.0); Blood Urea Nitrogen 9 mg/dL (9-16); C Reactive Protein < 0.04 mg/dL (< or = 0.50); Calcium 9.4 mg/dL (8.4-10.2); Carbon Dioxide 28 mmol/L (22-29); Chloride 106 mmol/L (96-108); Estimated Glomerular Filt Rate > 60; Glucose Random 93 mg/dL (60-115); Potassium 3.8 mmol/L (3.3-5.1); Sodium 140 mmol/L (135-145); Total Protein 7.7 g/dL (6.5-8.0)
[2023-12-28 19:21] LABS: Erythrocyte Sedimentation Rate 2 MM/HR (0-20)
[2023-12-29 07:15] LABS: Estimated Average Glucose 103 mg/dL; Hemoglobin A1c % 5.2 % (<6.0)
[2023-12-29 08:37] LABS: HIV AB/AG Nonreactive (Nonreactive); HIV Num 1 0.05 S/CO (0.00-0.99); ~HepC Num1 12.36 S/CO (0.00-0.79); ~Hepatitis C Antibody Reactive (Nonreactive)
[2024-01-04 13:24] LABS: HCV Log PCR <1.18 NOT DETECTED Log IU/mL (NOT DETECTED); HepC Viral Load <15 NOT DETECTED IU/mL (NOT DETECTED)
== END 2023-12-28 16:04 | disposition home or self-care (01) ==
LOC: HO.HHCL 16:03
PROVIDERS: Visit Provider Nurse Practitioner Family
DX: R00.2 Palpitations (principal)
CPT/HCPCS: 36415; 80053; 83036; 85025; 85652; 86140; 86803; 87389; 87522

== ENCOUNTER 2024-01-13 14:38 | Emergency (ER) | payer MEDICAID, SELFPAY ==
--- NOTE | ~2024-01-13 | XR_ITS ---
EXAMINATION: XR CHEST CLINICAL INFORMATION: Chest pain COMPARISON: Chest radiograph 12/16/2023 TECHNIQUE: AP view of the chest was obtained. FINDINGS: The lungs are well expanded. No focal consolidation, effusion, edema, or pneumothorax. The cardiomediastinal silhouette is within normal limits for technique and unchanged. No acute osseous abnormality. XR/XR chest 1V IMPRESSION: No acute pulmonary disease.
[2024-01-13 14:43] VITALS: BP 117/79; BP 135/109; PULSE 115; PULSE 99; RESP 18; TEMP 36.8; O2SAT 100; BMI 19.7
--- NOTE | 2024-01-13 15:05 | ECG_ITS ---
Test Reason : chest pain Blood Pressure : / mmHG Vent. Rate : 089 BPM Atrial Rate : 089 BPM P-R Int : 146 ms QRS Dur : 084 ms QT Int : 378 ms P-R-T Axes : 075 058 064 degrees QTc Int : 459 ms Normal sinus rhythm with sinus arrhythmia Normal ECG When compared with ECG of 16-DEC-2023 22:21, No significant change was found Referred By: Lisa Godfrey Electronically Signed By:MIKE BAUTISTA
--- NOTE | 2024-01-13 15:07 | ED_ITS ---
HPI - Chest Pain General Chief Complaint: Chest Pain Stated Complaint: L UPPER CHEST PAIN TO L ARM,FROM [facility] PER EMS Time Seen by Provider: 01/13/24 15:02 Source: patient, EMS and old records reviewed Mode of arrival: EMS Limitations: no limitations History of Present Illness ED Provider: JR MACIAS narrative: 28 yo female with PMH of NSTEMI in setting of opiate overdose in 2020 had ECHO at that time no GWMA, since then has had recurrent chest pain episodes negative stress test per cardiology notes 07/2023 and repeat ECHO 07/2023 which was reassuring and EF 60% she presents today with c/o MD complaint: chest pain Pertinent past history: prior CT (in setting of hypoxia) Onset (ago): day(s) (3) Prior episodes: Yes Onset: during rest and during exertion Pain location: left chest Pain radiation: neck Severity: similar to previous episodes Quality: tightness Relieving factors: nothing Exacerbating factors: palpation and movement Associated symptoms: dyspnea Treatment prior to arrival: none Related Data Previous Rx's ?Medication ?Instructions ?Recorded acetaminophen 500 mg tablet 1,000 mg (2 x 500 mg) PO Q6H PRN 09/19/23 (Tylenol Extra Strength) fever or pain #20 tabs ibuprofen 400 mg tablet 400 mg PO TID PRN fever or pain 09/19/23 #30 tabs amoxicillin 875 mg-potassium 1 tab PO Q12H #14 tabs 09/25/23 clavulanate 125 mg tablet cyclobenzaprine 10 mg tablet 10 mg PO TID PRN muscle spasm #20 01/13/24 tabs Allergies Allergy/AdvReac Type Severity Reaction Status Date / Time No Known Allergies Allergy Verified 01/13/24 14:51 [No Known Allergies*] Review of Systems 2 Review of Systems: Constitutional : No Weight loss, No Fever, No Chills ENT/Mouth : No sore throat, No Rhinorrhea Eyes: No Eye Pain, No Swelling Cardiovascular : pos Chest Pain, pos SOB, no Dyspnea on Exertion, No Orthopnea, No Edema, No Palpitations Respiratory : No Cough, No Sputum Gastrointestinal : no Nausea, No Vomiting, No Diarrhea, No abdominal Pain, No Hematochezia, No Melena Genitourinary : No Dysuria, No Urinary Frequency Musculoskeletal : No joint pain, No Myalgias, No Joint Swelling Skin : No Skin Lesions, No rash Neuro : No Weakness, No Numbness, No Dizziness, No Headache Psych : No Anxiety/Panic, No Depression All other systems reviewed and are negative [facility] Past Medical History Attestation statement: The following information was validated with the patient. Source: old records reviewed Medical History Asthma Opiate abuse, continuous No known health problems Social History Social History Household Members: None Housing: Apartment Do you presently have visiting nurse or other home services: No Alcohol intake: never Patient Tobacco Use Status: Current everyday Tobacco user Tobacco use type: Cigarette Cigarette Packs Per Day: 0.5 Cigarettes Per Day: 10.0 Substance Use Type: Heroin Advance Directives: No Advance Directives Information Provided: Yes service: No Current occupational status: employed Physical Exam 2 Vital Signs: Vital Signs: Last Vital Signs Temp 97.9 F 01/13/24 16:33 Pulse 78 01/13/24 16:33 Resp 19 01/13/24 16:33 BP 90/65 01/13/24 16:33 Pulse Ox 95 01/13/24 16:33 O2 Del Method Room Air 01/13/24 16:33 BMI result Body Mass Index 19.7 Appearance: Alert. Oriented X3. No acute distress. Eyes: Pupils equal, round and reactive to light. ENT: Pharynx normal. Neck: Normal inspection. Neck supple. CVS: Normal heart rate and rhythm. Pulses normal. chest: ttp L upper chest wall Respiratory: No respiratory distress. Breath sounds normal. Abdomen: Soft and nontender. Skin: Skin warm and dry. Normal skin color. Normal skin turgor. Extremities: No lower extremity edema. No calf ttp Neuro: Oriented X 3. No motor deficit. No sensory deficit. Medical Decision Making Medical Decision Making MDM Narrative: 28 yo female with PMH of NSTEMI in setting of opiate overdose back in 2020 since then has had recurrent chest pain with recent negative stress and ECHO 07/2023 who presents with c/o L sided chest pain worse with movementse - has some mild dyspnea at this time will need basic labs, troponin x 1, ddimer, cxr. She has no known CAD or risk factors for VTE. Pain is reproduceable. The EKG from PCP office read septal infarct but her changes are not new and are old from prior EKGs. Anticipate DC home if work up negative. Differential Diagnosis Differential Diagnoses: The differential diagnosis associated with the presentation includes atypical chest pain, chest wall pain distal pulses intact doubt dissection Admission/Observation Consideration of admission/observation: Escalation of care including admission/observation considered negative ddimer, trop, BNP CXR EKG unchanged atypical stable for DC Lab Data MDM Lab Attestation statement: I reviewed the patient's lab results. 01/13/24 15:32 01/13/24 15:32 Labs: Lab Results 01/13/24 Range/Units 15:32 WBC 8.4 (4.8-10.8) X10*3/uL RBC 4.40 (4.20-5.50) X10*6/uL Hgb 13.4 (12.0-16.0) g/dl Hct 39.1 (37.0-47.0) % MCV 88.9 (80.0-98.0) fL MCH 30.5 (27.0-33.0) pg MCHC 34.3 (31.0-35.0) g/dl RDW 12.9 (11.0-16.0) % Plt Count 198 (160-400) X10*3/uL MPV 9.5 (9.4-12.3) fL Immature Gran % (Auto) 0.2 (0.0-0.4) % Neut % (Auto) 60.0 (45-73) % Lymph % (Auto) 28.4 (20-40) % [place] % (Auto) 7.5 (2-11) % Eos % (Auto) 3.1 (0-4) % Baso % (Auto) 0.8 (0-2) % Lymph # (Auto) 2.4 (1.2-4.9) X10*3/uL [place] # (Auto) 0.6 (0.1-1.2) X10*3/uL Eos # (Auto) 0.3 (0.0-0.4) X10*3/uL Baso # (Auto) 0.1 (0.0-0.2) X10*3/uL Abs Immat Gran (auto) 0.02 (0.00-0.03) X10*3/uL Absolute Neuts (auto) 5.0 (2.0-8.3) x10*3/uL Absolute Nucleated RBC 0.000 (0.0-0.012) X10*3/uL Nucleated RBC % (auto) 0.0 (0.0-0.2) /100WBC D-Dimer High Sensitivty < 150 NG/ML Sodium 140 (135-145) mmol/L Potassium 3.7 (3.3-5.1) mmol/L Chloride 105 (96-108) mmol/L Carbon Dioxide 25 (22-29) mmol/L Anion Gap 14 (12-20) BUN 10 (9-16) mg/dL Creatinine 0.71 (0.5-1.4) mg/dL Estim Creat Clear Calc 93.0 Estimated GFR > 60 Random Glucose 89 (60-115) mg/dL Calcium 9.6 (8.4-10.2) mg/dL Magnesium 1.9 (1.6-2.6) mg/dL Total Bilirubin 0.7 (0.0-1.0) mg/dL Direct Bilirubin 0.3 (0.0-0.5) mg/dL AST 16 (5-31) U/L ALT 10 (0-31) U/L Alkaline Phosphatase 55 (39-117) U/L Troponin I High Sens < 2.7 (<3.5-17.0) ng/L B-Natriuretic Peptide < 10 (<100) pg/mL Total Protein 7.8 (6.5-8.0) g/dL Albumin 4.6 (3.5-5.0) g/dL Beta HCG, Quant < 2 mIU/mL Independent Interpretation I performed an independent interpretation of an: EKG and Plain X-Ray (normal ) Interpretation: Rate: 89 Rhythm: NSR [place]: normal Normal P waves. Normal ELISEO. Normal QRS complex. Poor R wave progression V1 and V2 ST T wave : no KITTY qTC: 459 prior studies: no acute change from prior The study has been interpreted contemporaneously by me. . Radiology Impression Discussion of test interpretation with radiology: I have reviewed the radiologist's reading. Independent Historian Clinical information obtained from an independent historian. History obtained from or confirmed by: EMS External Record Review External record reviewed: Inpatient record and Office record Discharge Plan Discharge Clinical Impression: Atypical chest pain Patient Disposition: Home, Self-Care Instructions: Chest Pain (ED) Additional Instructions: return for worsening pain, fevers, difficulty breathing or any other concerns follow up with your family practitioner blood test, EKG unchanged, chest xray no acute findings today Prescriptions: New cyclobenzaprine 10 mg tablet 10 mg PO TID PRN (Reason: muscle spasm) Qty: 20 0RF No Action acetaminophen [Tylenol Extra Strength] 500 mg tablet 1,000 mg PO Q6H PRN (Reason: fever or pain) Qty: 20 0RF ibuprofen 400 mg tablet 400 mg PO TID PRN (Reason: fever or pain) Qty: 30 0RF amoxicillin-pot clavulanate 875-125 mg tablet 1 tab PO Q12H Qty: 14 0RF Print Language: Thai
[2024-01-13 15:37] LABS: MANUAL DIFF FLAG NO
[2024-01-13 15:38] LABS: Basophils Absolute Auto 0.1 X10*3/uL (0.0-0.2); Basophils Percent Auto 0.8 % (0-2); Eosinophils Absolute Auto 0.3 X10*3/uL (0.0-0.4); Eosinophils Percent Auto 3.1 % (0-4); Hematocrit 39.1 % (37.0-47.0); Hemoglobin 13.4 g/dl (12.0-16.0); Imm Gran Abs Auto 0.02 X10*3/uL (0.00-0.03); Imm Gran Pct Auto 0.2 % (0.0-0.4); Lymphocytes Absolute Auto 2.4 X10*3/uL (1.2-4.9); Lymphocytes Percent Auto 28.4 % (20-40); Mean Corpuscular HGB Conc 34.3 g/dl (31.0-35.0); Mean Corpuscular Hemoglobin 30.5 pg (27.0-33.0); Mean Corpuscular Volume 88.9 fL (80.0-98.0); Mean Platelet Volume 9.5 fL (9.4-12.3); Monocytes Absolute Auto 0.6 X10*3/uL (0.1-1.2); Monocytes Percent Auto 7.5 % (2-11); Platelet Count 198 X10*3/uL (160-400); Red Cell Distribution Width 12.9 % (11.0-16.0); White Blood Count 8.4 X10*3/uL (4.8-10.8)
[2024-01-13 15:49] LABS: D Dimer High Sensitivity < 150 NG/ML
[2024-01-13 16:03] LABS: Alanine Aminotransferase 10 U/L (0-31); Albumin Level 4.6 g/dL (3.5-5.0); Alkaline Phosphatase 55 U/L (39-117); Anion Gap 14 (12-20); Aspartate Amino Transferase 16 U/L (5-31); Bilirubin Direct 0.3 mg/dL (0.0-0.5); Bilirubin Total 0.7 mg/dL (0.0-1.0); Blood Urea Nitrogen 10 mg/dL (9-16); Calcium 9.6 mg/dL (8.4-10.2); Carbon Dioxide 25 mmol/L (22-29); Chloride 105 mmol/L (96-108); Estimated Glomerular Filt Rate > 60; Glucose Random 89 mg/dL (60-115); Magnesium 1.9 mg/dL (1.6-2.6); Potassium 3.7 mmol/L (3.3-5.1); Sodium 140 mmol/L (135-145); Total Protein 7.8 g/dL (6.5-8.0)
[2024-01-13 16:08] LABS: B Type Natriuretic Peptide < 10 pg/mL (<100)
[2024-01-13 16:12] LABS: HCG Quantitative < 2 mIU/mL; Troponin-I High Sensitivity < 2.7 ng/L (<3.5-17.0)
[2024-01-13 16:33] VITALS: BP 90/65; PULSE 78; RESP 19; TEMP 36.6; O2SAT 95
[2024-01-13 16:56] VITALS: BP 95/64; PULSE 78; RESP 19; TEMP 36.6; O2SAT 95
== END 2024-01-13 16:57 | disposition home or self-care (01) ==
PROVIDERS: Emergency Provider Emergency Medicine; PCP Internal Medicine Geriatric Medicine
DX: R07.89 Other chest pain (principal); R06.02 Shortness of breath; F11.20 Opioid dependence, uncomplicated; J45.909 Unspecified asthma, uncomplicated; F17.210 Nicotine dependence, cigarettes, uncomplicated
CPT/HCPCS: 36415; 71045; 80048; 80076; 83735; 83880; 84484; 84702; 85025; 85379; 93005; 99283; 99284

== ENCOUNTER → 2024-01-13 15:05 | Outpatient (BNV) | payer MEDICAID, SELFPAY | PROVIDERS: Emergency Provider Emergency Medicine; PCP Internal Medicine Geriatric Medicine; Visit Provider Internal Medicine | DX: R07.9 Chest pain, unspecified (principal) | CPT/HCPCS: 93010 ==

== ENCOUNTER 2024-09-08 15:26 | Outpatient (REF) | payer MEDICAID, SELFPAY ==
[2024-09-08 16:15] LABS: MANUAL DIFF FLAG NO
[2024-09-08 16:31] LABS: Basophils Absolute Auto 0.1 X10*3/uL (0.0-0.2); Basophils Percent Auto 0.8 % (0-2); Eosinophils Absolute Auto 0.4 X10*3/uL (0.0-0.4); Eosinophils Percent Auto 4.5 % (0-4); Hematocrit 38.7 % (37.0-47.0); Imm Gran Abs Auto 0.03 X10*3/uL (0.00-0.03); Imm Gran Pct Auto 0.3 % (0.0-0.4); Lymphocytes Absolute Auto 2.7 X10*3/uL (1.2-4.9); Lymphocytes Percent Auto 28.2 % (20-40); Mean Corpuscular HGB Conc 33.6 g/dl (31.0-35.0); Mean Corpuscular Hemoglobin 29.3 pg (27.0-33.0); Mean Corpuscular Volume 87.4 fL (80.0-98.0); Mean Platelet Volume 9.8 fL (9.4-12.3); Monocytes Absolute Auto 0.8 X10*3/uL (0.1-1.2); Monocytes Percent Auto 8.5 % (2-11); Neutrophils Absolute Auto 5.5 x10*3/uL (2.0-8.3); Neutrophils Percent Auto 57.7 % (45-73); Platelet Count 309 X10*3/uL (160-400); Red Blood Count 4.43 X10*6/uL (4.20-5.50); Red Cell Distribution Width 12.9 % (11.0-16.0); White Blood Count 9.6 X10*3/uL (4.8-10.8)
[2024-09-08 16:51] LABS: Alanine Aminotransferase 12 U/L (0-31); Albumin Level 4.1 g/dL (3.5-5.0); Alkaline Phosphatase 53 U/L (39-117); Anion Gap 9 (12-20); Aspartate Amino Transferase 17 U/L (5-31); Bilirubin Total 0.5 mg/dL (0.0-1.0); Blood Urea Nitrogen 8 mg/dL (9-16); Calcium 8.8 mg/dL (8.4-10.2); Carbon Dioxide 26 mmol/L (22-29); Chloride 106 mmol/L (96-108); Estimated Glomerular Filt Rate > 60; Glucose Random 90 mg/dL (60-115); Potassium 3.3 mmol/L (3.3-5.1); Sodium 138 mmol/L (135-145); Total Protein 7.9 g/dL (6.5-8.0)
[2024-09-08 17:08] LABS: TSH reflex Free T4 2.21 uIU/mL (0.32-4.0)
[2024-09-09 04:53] LABS: CT PCR NOT DETECTED (Not Detect.); NG PCR NOT DETECTED (Not Detect.)
[2024-09-09 08:21] LABS: HBS Num1 11.83 mIU/mL (0-7.99); HBsAGNum1 0.31 S/CO (0.00-0.99); HIV AB/AG Nonreactive (Nonreactive); HIV Num 1 0.27 S/CO (0.00-0.99); Hepatitis B Surface Antigen Negative (Negative); ~HepC Num1 12.41 S/CO (0.00-0.79); ~Hepatitis C Antibody Reactive (Nonreactive)
[2024-09-09 10:05] LABS: HBS Num2 11.75 mIU/mL (0-7.99); ~Hepatitis B Surface Antibody GRAYZONE (Nonreactive)
[2024-09-10 15:58] LABS: HCV Log PCR <1.18 NOT DETECTED Log IU/mL (NOT DETECTED); HepC Viral Load <15 NOT DETECTED IU/mL (NOT DETECTED)
[2024-09-11 14:19] LABS: TS Negative Control Passed; TS Panel A 0; TS Panel B 0; TS Positive Control Passed; TSpotTB Negative (Negative)
[2024-09-11 19:19] LABS: RPR Rapid Plasma Reagin NON-REACTIVE (NON-REACTIVE)
== END 2024-09-08 15:27 | disposition home or self-care (01) ==
LOC: HO.HHCL 15:26
PROVIDERS: Visit Provider Internal Medicine Geriatric Medicine
DX: Z00.00 Encounter for general adult medical examination without abnormal findings (principal); R63.4 Abnormal weight loss; Z11.3 Encounter for screening for infections with a predominantly sexual mode of transmission; Z11.1 Encounter for screening for respiratory tuberculosis
CPT/HCPCS: 36415; 80053; 84443; 85025; 86481; 86592; 86706; 86803; 87340; 87389; 87491; 87522; 87591

== ENCOUNTER 2024-12-13 16:28 | Outpatient (REF) | payer MEDICAID, SELFPAY ==
--- OUTSIDE RECORDS SUMMARY | 2024-12-13 19:04 | XMS_ITS | Encounter Summary ---
Author Organization [employer] Address [address] [place] [id number] Care Team Providers Care Antique Repairer Name Role Phone Name, Mann MENG Primary Care Provider [phone] Reason for Visit * Reason Onset Date Comments ER Follow-up 01/18/2024 Encounter Details Date Type Department Care Team ([facility] st Contact Info) Description 01/18/2024 Telephone [facility] MED[facility]INE [address] [place] [place], [place] [id number] Name, MD Mann [address] [place] [address] ER Follow-up Social History Tobacco Use Types Packs/Day Years Used Date Smoking Tobacco: Every Day Cigarettes Smokeless Tobacco: Never Alcohol Use Standard Drinks/Week Comments Never 0 (1 standard drink = 0.6 oz pur e alcohol) Alcohol Answer Date Recorded Frequency of Alcohol Consumption Not on file 12/28/2023 Average Number of Drinks Not on file 024 Frequency of Binge Drinking Not on file 01/2024 Score 0 12/28/2023 Depression Answer Date Recorded Patient Health Questionnaire-9 Score 4 04/29/2023 Patient Health Questionnaire-9 Score 4 04/29/2023 Last PHQ-9: Questionnaire Data Not on file 1 06/29/2022 Housing Stability Answer Date Recorded What is your housing situation today? I have nicko valadez 04/06/[address] you li ve. Do you have problems with any of the following? None of the above 04/06/2023 Food Insecurity Answer Date Recorded Within the past 12 months, y ou worried that your food would run out before you got money to buy more: Never True 04/06/2023 Within the past 12 months,th e food you bought just didn't last and you didn't have enough money to get more: Never True Transportation Answer Date Recorded In the past 12 months, has l ack of transportation kept you from medical appts, meetings, work or from getting things needed for daily living? Yes, it has kept me from medical appointments or getting medications. 12/18/2023 Utilities Answer Date Recorded In the past 12 months, has t he electric, gas, oil or water company threatened to shut off services in your home? No 04/06/2023 Depression Answer Date Recorded Patient Health Questionnaire-2 Score 0 04/29/2023 Comments No Sex and Gender Information Value Date Recorded Sex Assigned at Female 04/21/2022 10:22 AM EDT Legal Sex Female 10:22 AM EDT Gender Identity Female 04/21/2022 10:22 AM EDT Sexual Orientation Choose not to disclose 2021 10:22 AM EDT documented as of this encounter Miscellaneous Notes * Telephone Encounter - Portia De La Fuente RN - 01/18/2024 4:38 PM EDT T/C to pt. Through [employer] id - [id number] for status check for recent ED visit, No answer. LVM to call back on [phone]. ( Pt. Has already referred to Transportation Refrigeration Technician from [facility], pt. Was advised to follow up with cardiology from ED. ) * Telephone Encounter - Regan Sauceda - 01/18/2024 11:55 AM EDT Patient calling to report ED visit on : Date: 01/12 Hospital: [facility] Seen for: Chest Pain documented in this encounter Plan of Treatment Upcoming Encounters Date Type Department Care Team (Late st Contact Info) Description 12/27/2024 3:15 PM EDT Office Visit [facility] [address] [place] [address] Name, MD Mann [address] [place] [address] 01/02/2025 9:30 AM EDT Office Visit [facility] [address] [place] [address] Jackie Matta CNM [address] [place] [address] documented as of this encounter Visit Diagnoses Not on filedocumented in this encounter Additional Health Concerns Assessment Noted Time PHQ-9 Depression Total Score: 4 04/29/20 23 8:16 AM EST documented as of this encounter Care Teams Antique Repairer Relationship Specialty Start Date End Date Name, MD Mann [address] [place] [address] PCP - General Family Medicine 11/13/15 documented as of this encounter
== END 2024-12-13 16:29 | disposition home or self-care (01) ==
LOC: HO.HHCLNP 16:28
PROVIDERS: Visit Provider Advanced Practice Midwife
DX: N90.89 Other specified noninflammatory disorders of vulva and perineum (principal)
CPT/HCPCS: 36415; 87255

== ENCOUNTER 2024-12-15 13:29 | Outpatient (REF) | payer MEDICAID, SELFPAY ==
--- OUTSIDE RECORDS SUMMARY | 2024-12-15 16:19 | XMS_ITS | Encounter Summary ---
Author Organization [employer] Address [address] [place] [phone] Care Team Providers Care Webbing Supervisor Name Role Phone Name, Mann MENG Primary Care Provider [phone] Reason for Visit * Reason Onset Date Comments ER Follow-up 01/18/2024 Encounter Details Date Type Department Care Team ([facility] st Contact Info) Description 01/18/2024 Telephone [facility] MEDICINE [address] [place] [address] Name, MD Mann [address] [place] [address] ER Follow-up Social History Tobacco Use Types [...] 4:38 PM EDT T/C to pt. Through [employer] id - [id number] for status check for recent ED visit, No answer. LVM to call back on [phone]. ( Pt. Has already referred to Principal Military Analyst from [facility], pt. Was advised to follow up with cardiology from ED. ) * Telephone Encounter - Regan Sauceda - 01/18/2024 11:55 AM EDT Patient calling to report ED visit on : Date: 01/12 Hospital: [facility] Seen for: Chest Pain documented in this encounter Plan of Treatment Upcoming Encounters Date Type Department Care Team (Late st Contact Info) Description 12/27/2024 3:15 PM EDT Office Visit [facility] [address] [place] [address] Name, MD Mann [address] [place] [address] 01/02/2025 9:30 AM EDT Office Visit [facility] [address] [place] [address] Jackie Matta CNM [address] [place] [address] documented as of this encounter Visit Diagnoses Not on filedocumented in this encounter Additional Health Concerns Assessment Noted Time PHQ-9 Depression Total Score: 4 04/29/20 23 8:16 AM EST documented as of this encounter Care Teams Webbing Supervisor Relationship Specialty Start Date End Date Name, MD Mann [address] [place] [address] PCP - General Family Medicine 11/13/15 documented as of this encounter
== END 2024-12-15 13:30 | disposition home or self-care (01) ==
LOC: HO.HHCL 13:29
PROVIDERS: PCP Internal Medicine Geriatric Medicine; Visit Provider Advanced Practice Midwife
DX: Z13.89 Encounter for screening for other disorder (principal)

== ENCOUNTER 2024-12-27 16:07 | Outpatient (REF) | payer MEDICAID, SELFPAY ==
--- OUTSIDE RECORDS SUMMARY | 2024-12-27 16:15 | XMS_ITS | Encounter Summary ---
Author Organization [employer] Address [address] [facility] [address] [place] [address] Care Team Providers Care Incinerator Plant Laborer Name Role Phone Name, Mann MENG Primary Care Provider [phone] Reason for Visit * Reason Onset Date Comments CHARTPREP 12/26/2024 Encounter Details Date Type Department Care Team (Late st Contact Info) Description 12/26/2024 Telephone [facility] [address], [place] [phone] Hermelindo Rhoades MA CHARTPREP Social History Tobacco Use Types Packs/Day Years [...] Recorded Patient Health Questionnaire-2 Score 0 04/29/2023 Internet Access Answer Date Recorded Internet Access Q1 Yes 02/22/2024 Internet Access Q2 Not on file 02/22/2024 Comments No Sex and Gender Information Value Date Recorded Sex Assigned at Female 04/21/2022 10:22 AM EDT Legal Sex Female 10:22 AM EDT Gender Identity Female 04/21/2022 10:22 AM EDT Sexual Orientation Choose not to disclose 2021 10:22 AM EDT documented as of this encounter Miscellaneous Notes * Telephone Encounter - Hermelindo Rhoades MA - 12/26/2024 1:52 PM EDT Chart Prep Labs: done Images: done Referrals: no show Mammogram Vaccines due: Covid Screenings: not applicable Overdue care gaps: SDOH, PHQ-9, MARSHA-7, Oral health screening, and Disability screen documented in this encounter Plan of Treatment Upcoming Encounters Date Type Department Care Team (Late st Contact Info) Description 01/02/2025 9:30 AM EDT Office Visit [facility] [address] [place] [phone] Jackie Matta CNM [address] [place] [phone] 03/24/2025 2:00 PM EDT Office Visit [facility] [address] [place] [address] [phone] Name, MD Mann [address] [place] [phone] documented as of this encounter Visit Diagnoses Not on filedocumented in this encounter Additional Health Concerns Assessment Noted Time PHQ-9 Depression Total Score: 4 04/29/20 23 8:16 AM EST documented as of this encounter Care Teams Incinerator Plant Laborer Relationship Specialty Start Date End Date Name, MD Mann [address] [place] [address] PCP - General Family Medicine 11/13/15 documented as of this encounter
== END 2024-12-27 16:08 | disposition home or self-care (01) ==
LOC: HO.HHCL 16:07
PROVIDERS: PCP Internal Medicine Geriatric Medicine; Visit Provider Advanced Practice Midwife
DX: N90.89 Other specified noninflammatory disorders of vulva and perineum (principal)
CPT/HCPCS: 36415; 86695; 86696